=== PATIENT | female | born 1945 | race Caucasian/White ===

== ENCOUNTER 2017-07-04 13:52 | Inpatient (IN) | payer OTHER ==
[2017-07-04] MEDS ORDERED: Ondansetron INJ* 2 MG/ML VIAL IV ONE (14:15)
[2017-07-04] MEDS ORDERED: Morphine INJ* 4 MG/ML 1 ML CARPUJECT IV ONE (14:15)
[2017-07-04] MEDS ORDERED: Aspirin Low Dose CHEW TAB* 81 MG PO ONE (14:15)
[2017-07-04] MEDS ORDERED: Morphine INJ* 4 MG/ML 1 ML SYRINGE (NEW SYRINGE VERSION) ONE (14:18)
[2017-07-04] MEDS ORDERED: Morphine INJ* 4 MG/ML 1 ML SYRINGE (NEW SYRINGE VERSION) IV ONE (14:27)
[2017-07-04 14:40] LABS: ABS Basophils 0 10^3/ul (0-0.2); ABS Eosinophils 0.2 10^3/ul (0-0.6); ABS Lymphocytes 1.9 10^3/ul (1.0-4.8); ABS Monocytes 0.8 10^3/ul (0-0.8); ABS Neutrophils 3.6 10^3/ul (1.5-7.7); ABS Nucleated RBC 0 10^3/ul; Hematocrit 42 % (35-47); Hemoglobin 14.6 g/dl (12.0-16.0); Lymphocyte % 29.4 % (25-47); Mean Corpuscular HGB Conc 35 g/dl (31-36); Mean Corpuscular Hemoglobin 31 pg (27-31); Mean Corpuscular Volume 89 fL (80-97); Mean Platelet Volume 8 um3 (7.4-10.4); Nucleated Red Blood Cells % 0.2; Platelet Count 103 10^3/ul (150-450); Red Blood Count 4.75 10^6/ul (4.0-5.4); Red Cell Distribution Width 13 % (10.5-15); White Blood Count 6.5 10^3/ul (3.5-10.8)
[2017-07-04 14:50] LABS: INR 0.78 (0.77-1.02)
--- NOTE | 2017-07-04 14:53 | RAD ---
Indication: Chest pain. Aortic valve replacement in 2014. Atrial fibrillation. Remote sarcoidosis. Former tobacco use. Comparison: September 03, 2013 Technique: Upright AP 1427 hours Report: Elevated lung volumes. Minimal prominence of the interstitial markings. No focal pulmonary lesion, compelling alveolar consolidation, pleural effusion, pneumothorax. Median sternotomy wires. Negative for cardiomegaly. Unremarkable central pulmonary vasculature. Mildly tortuous descending thoracic aorta. Anterior cervical fusion hardware and surgical anchors at the RIGHT humeral head noted. IMPRESSION: Stigmata of potential obstructive lung disease. No acute pulmonary or cardiac process evident.
[2017-07-04 14:57] LABS: EGFR Non-African American 60.8 (>60)
[2017-07-04] MEDS ORDERED: Ondansetron INJ* 2 MG/ML VIAL IV PRN (17:16)
--- NOTE | 2017-07-04 17:35 | ED ---
Jaquelin Osorio Thomas, scribed for Brian Max MD on 07/04/17 at 1410 . HPI Chest Pain - HPI Summary HPI Summary: The patient is a 71 year old female complaining of chest pain that began this morning about 11:00 when she was doing laundry and dishes. The pain is located in her central chest and radiates to her right shoulder and neck. She describes a dull pain rated 5/10. There are not any known aggravating or alleviating factors. The patient also complains of shortness of breath, a headache, and generalized malaise. She has lymphedema in both legs. The patient denies abdominal pain, nausea, and diaphoresis. Past medical history includes DM and aortic valve replacement (2013). - History of Current Complaint Chief Complaint: EDChestPainROMI Time Seen by Provider: 07/04/17 14:00 Hx Obtained From: Patient Onset/Duration: Started Hours Ago, Still Present Time of Onset: 11:00 Current Severity: Moderate Pain Intensity: 5 Pain Scale Used: 0-10 Numeric Chest Pain Radiates: Yes Chest Pain Radiates To:: Shoulder - right Aggravating Factor(s): Nothing Alleviating Factor(s): Nothing Associated Signs and Symptoms: Positive: Chest Pain, Other: - SOB, headache, generalized malaise; NEGATIVE: abdominal pain, nausea, diaphoresis Related History: Obesity - Allergy/Home Medications Allergies/Adverse Reactions: Allergies Allergy/AdvReac Type Severity Reaction Status Date / Time Adhesive Tape Allergy Rash Verified 07/04/17 13:56 azithromycin Allergy Hives Verified 07/04/17 14:50 ciprofloxacin Allergy Hives Verified 07/04/17 14:50 lisinopril Allergy Coughing Verified 07/04/17 14:50 meloxicam Allergy See Comment Verified 07/04/17 14:51 pollen extracts Allergy Eyes Verified 07/04/17 14:51 Itchy/Swollen/Red/Watery dust mites Allergy Eyes Uncoded 07/04/17 14:50 Itchy/Swollen/Red/Watery PATEL Allergy WEEPY Uncoded 07/04/17 13:56 BLISTERING RASH WATER CHESTNUT Allergy FULL BODY Uncoded 07/04/17 13:56 HIVES Home Medications: Home Medications Ascorbic Acid TAB* [Vitamin C TAB*] 1,000 mg PO BID 07/04/17 [History Confirmed 07/04/17] Cholecalciferol TAB* [Vitamin D TAB*] 1,000 unit PO QPM 07/04/17 [History Confirmed 07/04/17] Dronedarone TAB* [Multaq TAB*] 400 mg PO BID 07/04/17 [History Confirmed ] Metoprolol Succinate XL TAB* [Toprol XL TAB*] 50 mg PO QPM 07/04/17 [History Confirmed 07/04/17] Montelukast Sodium TAB* [Singulair TAB*] 10 mg PO BEDTIME 07/04/17 [History Confirmed 07/04/17] Multivitamins/Minerals TAB* [Theragran/minerals TAB*] 1 tab PO QAM 07/04/17 [ History Confirmed 07/04/17] Rosuvastatin (NF) [Crestor (NF)] 10 mg PO QPM 07/04/17 [History Confirmed ] Ubiquinol 100 mg PO QAM 07/04/17 [History Confirmed 07/04/17] metFORMIN* [Glucophage 500 MG TAB *] 500 mg PO QPM 07/04/17 [History Confirmed 07/04/17] PMH/Surg Hx/FS Hx/Imm Hx Endocrine/Hematology History: Reports: Hx Diabetes Cardiovascular History: Reports: Hx Valvular Heart Disease - HX OF, Other Cardiovascular Problems/Disorders - pericarditis Denies: Hx Pacemaker/ICD Respiratory History: Reports: Hx Asthma - HX OF, Hx Sleep Apnea GI History: Reports: Hx Gastroesophageal Reflux Disease - ON MED History: Reports: Other Problems/Disorders - UTI ABOUT 1 MONTH - NONE NOW Musculoskeletal History: Reports: Hx Arthritis, Hx Bursitis - LEFT HIP, Hx Tendonitis - LEFT ANKLE Sensory History: Reports: Hx Contacts or Glasses Denies: Hx Hearing Aid Opthamlomology History: Reports: Hx Contacts or Glasses Psychiatric History: Reports: Hx Depression - CONTROL WITH MED Denies: Hx Panic Disorder - Surgical History Surgery Procedure, Year, and Place: CERVICAL FUSION 2000 [facility]; BILAT ROTATOR CUFF REPAIRS, LT KNEE SCOPE 2004; GALLBLADDER 2006; HYSTERECTOMY 1999; TONSILECTOMY CHILD, LYMPHNODE BIOPSY 1967; CYST PALM OF LEFT HAND; AORTIC VALVE REPLACMENT Hx Anesthesia Reactions: No Infectious Disease History: No Infectious Disease History: Denies: Hx Clostridium Difficile, Hx Hepatitis, Hx Human Immunodeficiency Virus (HIV), Hx of Known/Suspected MRSA, Hx Shingles, Hx Tuberculosis, Hx Known/ Suspected VRE, Hx Known/Suspected VRSA, History Other Infectious Disease, Traveled Outside the [place] in Last 30 Days - Family History Known Family History: Negative: Respiratory Disease - Social History Alcohol Use: Occasionally Substance Use Type: Reports: None Smoking Status (MU): Former Smoker Type: Cigarettes Amount Used/How Often: 2 CIGARETTES PER DAY Length of Time of Smoking/Using Tobacco: 4-5 YEARS Have You Smoked in the Last Year: No Review of Systems Positive: Other - Generalized malaise. Negative: Fever, Skin Diaphoresis Positive: Chest Pain Positive: Shortness Of Breath Negative: Abdominal Pain, Nausea Positive: Edema Positive: Headache All Other Systems Reviewed And Are Negative: Yes Physical Exam - Summary Physical Exam Summary: General: well-appearing, no pain distress Skin: warm, color reflects adequate perfusion, dry Head: normal Eyes: EOMI, TRAE ENT: normal Neck: supple, nontender Respiratory: CTA, breath sounds present Cardiovascular: RRR Abdomen: soft, nontender Bowel: present Musculoskeletal: bilateral pedal edema Neurological: sensory/motor intact, A&O x3 Psychological: affect/mood appropriate Triage Information Reviewed: Yes Vital Signs On Initial Exam: Initial Vitals Temp Pulse Resp BP Pulse Ox 97.1 F 75 16 160/86 96 07/04/17 13:56 07/04/17 13:56 07/04/17 13:56 07/04/17 13:56 07/04/17 13:56 Vital Signs Reviewed: Yes Diagnostics - Vital Signs Vital Signs Temp Pulse Resp BP Pulse Ox 07/04/17 13:56 97.1 F 75 16 160/86 96 - Laboratory Lab Results: Lab Results 07/04/17 07/04/17 07/04/17 Range/Units 14:28 14:28 14:28 WBC 6.5 (3.5-10.8) 10^3/ul RBC 4.75 (4.0-5.4) 10^6/ul Hgb 14.6 (12.0-16.0) g/dl Hct 42 (35-47) % MCV 89 (80-97) fL MCH 31 (27-31) pg MCHC 35 (31-36) g/dl RDW 13 (10.5-15) % Plt Count 103 L (150-450) 10^3/ul MPV 8 (7.4-10.4) um3 Neut % (Auto) 55.3 (38-83) % Lymph % (Auto) 29.4 (25-47) % Luna % (Auto) 11.6 H (0-7) % Eos % (Auto) 3.0 (0-6) % Baso % (Auto) 0.7 (0-2) % Absolute Neuts (auto) 3.6 (1.5-7.7) 10^3/ul Absolute Lymphs (auto) 1.9 (1.0-4.8) 10^3/ul Absolute Monos (auto) 0.8 (0-0.8) 10^3/ul Absolute Eos (auto) 0.2 (0-0.6) 10^3/ul Absolute Basos (auto) 0 (0-0.2) 10^3/ul Absolute Nucleated RBC 0 10^3/ul Nucleated RBC % 0.2 INR (Anticoag Therapy) 0.78 (0.77-1.02) APTT 28.2 (26.0-36.3) seconds D-Dimer, Quantitative < 200 (Less Than 230) ng/mL Sodium (133-145) mmol/L Potassium Chloride (101-111) mmol/L Carbon Dioxide (22-32) mmol/L Anion Gap (2-11) mmol/L BUN (6-24) mg/dL Creatinine (0.51-0.95) mg/dL Est GFR ( Amer) (>60) Est GFR (Non-Af Amer) (>60) BUN/Creatinine Ratio (8-20) Glucose (70-100) mg/dL Lactic Acid (0.5-2.0) mmol/L Calcium (8.6-10.3) mg/dL Magnesium Total Bilirubin (0.2-1.0) mg/dL AST ALT (7-52) U/L Alkaline Phosphatase (34-104) U/L Total Creatine Kinase (10-223) U/L CK-MB (CK-2) (0.6-6.3) ng/mL Troponin I (<0.04) ng/mL C-Reactive Protein (< 5.00) mg/L B-Natriuretic Peptide 40 ( - 100) pg/mL Total Protein (6.4-8.9) g/dL Albumin (3.2-5.2) g/dL Globulin (2-4) g/dL Albumin/Globulin Ratio (1-3) Lipase (11.0-82.0) U/L TSH (0.34-5.60) mcIU/mL 07/04/17 07/04/17 07/04/17 Range/Units 14:28 14:28 16:50 WBC (3.5-10.8) 10^3/ul RBC (4.0-5.4) 10^6/ul Hgb (12.0-16.0) g/dl Hct (35-47) % MCV (80-97) fL MCH (27-31) pg MCHC (31-36) g/dl RDW (10.5-15) % Plt Count (150-450) 10^3/ul MPV (7.4-10.4) um3 Neut % (Auto) (38-83) % Lymph % (Auto) (25-47) % Luna % (Auto) (0-7) % Eos % (Auto) (0-6) % Baso % (Auto) (0-2) % Absolute Neuts (auto) (1.5-7.7) 10^3/ul Absolute Lymphs (auto) (1.0-4.8) 10^3/ul Absolute Monos (auto) (0-0.8) 10^3/ul Absolute Eos (auto) (0-0.6) 10^3/ul Absolute Basos (auto) (0-0.2) 10^3/ul Absolute Nucleated RBC 10^3/ul Nucleated RBC % INR (Anticoag Therapy) (0.77-1.02) APTT (26.0-36.3) seconds D-Dimer, Quantitative (Less Than 230) ng/mL Sodium 136 (133-145) mmol/L Potassium TNP 4.6 Chloride 104 (101-111) mmol/L Carbon Dioxide 26 (22-32) mmol/L Anion Gap 6 (2-11) mmol/L BUN 28 H (6-24) mg/dL Creatinine 0.91 (0.51-0.95) mg/dL Est GFR ( Amer) 78.1 (>60) Est GFR (Non-Af Amer) 60.8 (>60) BUN/Creatinine Ratio 30.8 H (8-20) Glucose 120 H (70-100) mg/dL Lactic Acid 0.8 (0.5-2.0) mmol/L Calcium 9.4 (8.6-10.3) mg/dL Magnesium Cancelled Pending Total Bilirubin 0.40 (0.2-1.0) mg/dL AST TNP 23 ALT 26 (7-52) U/L Alkaline Phosphatase 68 (34-104) U/L Total Creatine Kinase 79 (10-223) U/L CK-MB (CK-2) 3.4 (0.6-6.3) ng/mL Troponin I 0.03 (<0.04) ng/mL C-Reactive Protein 7.41 H (< 5.00) mg/L B-Natriuretic Peptide ( - 100) pg/mL Total Protein 7.0 (6.4-8.9) g/dL Albumin 4.0 (3.2-5.2) g/dL Globulin 3.0 (2-4) g/dL Albumin/Globulin Ratio 1.3 (1-3) Lipase 66 (11.0-82.0) U/L TSH 1.41 (0.34-5.60) mcIU/mL Result Diagrams: 07/04/17 14:28 07/04/17 16:50 Lab Statement: Any lab studies that have been ordered have been reviewed, and results considered in the medical decision making process. - Radiology CXR Xray Interpretation: No Acute Changes - Stigmata of potential obstructive lung disease. No acute pulmonary or cardiac process evident. Dr. Max has reviewed this report. Radiology Interpretation Completed By: Radiologist - EKG 13:56 Cardiac Rate: NL - at 71 BPM EKG Rhythm: Sinus Rhythm ST Segment: Normal Ectopy: None Chest Pain Course/Dx - Course Course Of Treatment: Medications reviewed. Allergies noted. BP noted and patient urged to follow up with primary care. CHEST PAIN IMPROVED IN ED. ADMIT HOSPITALIST. - Diagnoses Provider Diagnoses: Chest pain - Provider Notifications Discussed Care Of Patient With: Brianna Jones Time Discussed With Above Provider: 16:26 Instructed by Provider To: Admit As Inpatient Discharge - Discharge Plan Condition: Stable Disposition: ADMITTED TO [facility] Referrals: Micheal Renteria MD [Primary Care Provider] - The documentation as recorded by the Jaquelin palencia Thomas accurately reflects the service I personally performed and the decisions made by me, Brian Max MD.
[2017-07-04] MEDS ORDERED: Dextrose 50% Syringe 50 ML* 25 GM/50 ML SYRINGE IV PUSH PRN (17:39)
[2017-07-04] MEDS ORDERED: Atorvastatin* 20 MG TAB PO SCH (18:00)
[2017-07-04] MEDS ORDERED: metFORMIN* 500 MG TAB PO SCH (18:00)
[2017-07-04] MEDS ORDERED: Enoxaparin(*) 40 MG/0.4 ML SYR SUBCUT SCH (18:00)
[2017-07-04] MEDS: buPROPion SR TAB.SR* 150 MG PO SCH (19:49)
[2017-07-04] MEDS: Dronedarone TAB* 400 MG PO SCH (19:49)
[2017-07-04] MEDS: Metoprolol Succinate XL TAB* 50 MG PO SCH (19:49)
[2017-07-04] MEDS: Aspirin EC Low Dose* 81 MG TAB.EC PO SCH (19:49)
[2017-07-04] MEDS: Montelukast Sodium TAB* 10 MG PO SCH (19:49)
[2017-07-04] MEDS: Insulin LISPRO* 1 UNITS UNIT SUBCUT SCH (20:42)
--- NOTE | 2017-07-04 21:54 | PN ---
Progress Note - Progress Note Date of Service: 07/04/17 Note: troponin up to 0.7. Patient asymptomatic per nursing. D/C enoxaparin (not yet give). Add heparin GTT per [facility] protocol. Patient has received aspirin & metoprolol. Continue monitoring.
[2017-07-04] MEDS ORDERED: Heparin DRIP 25,000 UNITS(*) 25,000 UNITS/500 ML BAG IVPB SCH (22:00)
[2017-07-04] MEDS ORDERED: Heparin VIAL(*) 5000 UNITS/ML VIAL (FIVE THOUSAND) IV SCH (22:00)
[2017-07-04 23:10] LABS: EGFR Non-African American 59.3 (>60); EGFR Non-African American 60.8 (>60)
[2017-07-04 23:33] LABS: ABS Basophils 0.1 10^3/ul (0-0.2); ABS Eosinophils 0.2 10^3/ul (0-0.6); ABS Lymphocytes 2.1 10^3/ul (1.0-4.8); ABS Monocytes 0.9 10^3/ul (0-0.8); ABS Neutrophils 4.3 10^3/ul (1.5-7.7); ABS Nucleated RBC 0 10^3/ul; Eosinophil % 2.6 % (0-6); Hematocrit 42 % (35-47); Hemoglobin 14.2 g/dl (12.0-16.0); Lymphocyte % 27.7 % (25-47); Mean Corpuscular HGB Conc 34 g/dl (31-36); Mean Corpuscular Hemoglobin 31 pg (27-31); Mean Corpuscular Volume 90 fL (80-97); Mean Platelet Volume 8 um3 (7.4-10.4); Nucleated Red Blood Cells % 0; Platelet Count 84 10^3/ul (150-450); Red Blood Count 4.65 10^6/ul (4.0-5.4); Red Cell Distribution Width 13 % (10.5-15); White Blood Count 7.6 10^3/ul (3.5-10.8)
--- NOTE | 2017-07-05 03:29 | HP ---
CC: Dr. Renteria; Dr. Fish. * HISTORY AND PHYSICAL: DATE OF ADMISSION: 07/04/17 PRIMARY CARE PROVIDER: Dr. Renteria. PRINCIPAL ACCOUNT CLERK: Dr. Fish. CHIEF COMPLAINT: Chest pain. HISTORY OF PRESENT ILLNESS: Ms. Gilbert is a 71-year-old morbidly obese female with a history of paroxysmal atrial fibrillation, hypertension, hyperlipidemia, and past bovine aortic valve replacement, who presents to the emergency room with complaints of chest pain. The patient states that she was doing routine housework when she began to feel very tired. She states she then felt as if she had just run for a prolonged distance. She felt a very significant heaviness and discomfort in her chest. She stopped performing the housework and rested for little while. The discomfort did not go away and therefore she presented to the emergency room. She still describes discomfort feeling. She states her chest feels heavy. She did note some discomfort in her neck and she had associated shortness of breath. She denies any associated sweats or nausea. She has never had anything like this in the past. She does believe that she had a stress test perhaps in 2012 to 2013 when she was being worked up by Dr. Fish, but she is not 100% sure. PAST MEDICAL HISTORY: 1. ITP. 2. Steroid-induced diabetes. 3. Sarcoidosis. 4. Asthma. 5. Hypertension. 6. Hyperlipidemia. 7. GERD. 8. SHILA. 9. Paroxysmal atrial fibrillation. 10. Depression. PAST SURGICAL HISTORY: 1. Bovine aortic valve replacement in 2013. 2. ACDF. 3. Rotator cuff repairs bilaterally. 4. Cholecystectomy. 5. Lymph node removal in 1968 at the time of diagnosis of sarcoidosis. 6. Tonsillectomy. 7. Hysterectomy. 8. Mohs surgery around the lower lip for basal cell carcinoma. MEDICATIONS: 1. Metformin 500 mg p.o. q.h.s. 2. Metoprolol XL 50 mg p.o. q.h.s. 3. Aspirin 81 mg p.o. q.h.s. 4. Crestor 10 mg p.o. q.h.s. 5. Singulair 10 mg p.o. q.h.s. 6. Vitamin D 1000 units p.o. q.h.s. 7. Ascorbic acid 1000 mg p.o. twice daily. 8. Multivitamin 1 tab p.o. daily. 9. Ubiquinol 100 mg p.o. daily. 10. Cetirizine 10 mg p.o. daily 11. Bupropion SR 150 mg p.o. twice daily. 12. Dronedarone 400 mg p.o. twice daily. ALLERGIES: LISINOPRIL, CIPRO, AZITHROMYCIN and MELOXICAM. FAMILY HISTORY: Mom , she believes of possible pneumonia, states she may have also had some cardiac issues at the time of her passing. Dad had history of prostate cancer, lymphoma and stroke. SOCIAL HISTORY: The patient is a former smoker. She quit in 1967. She drinks alcohol on occasion, but now tends to favor nonalcoholic beer. She is a retired administer. She is . Her is her healthcare proxy. REVIEW OF SYSTEMS: A complete 11 system review of systems is obtained. Pertinent positives and negatives are as per HPI and otherwise negative. PHYSICAL EXAMINATION GENERAL: The patient is a well-developed, elderly obese female, sitting up in the stretcher in no acute distress. VITAL SIGNS: Blood pressure 157/58, pulse 65, respirations 12, temp 97.1, O2 sat 97% on room air. HEENT: Pupils are equal and round. Extraocular muscles are intact. Oropharynx is clear. Oral mucosa is moist. There is no submandibular or cervical or supraclavicular adenopathy. Thyroid is not enlarged. No thyroid nodules are noted. PULMONARY: Lungs are clear to auscultation bilaterally. CARDIAC: Normal S1 and S2. Regular rate and rhythm. I do not appreciate any murmurs. There is no lower extremity edema. ABDOMEN: Bowel sounds present. Abdomen is soft, nontender, nondistended. MUSCULOSKELETAL: There is no cyanosis or clubbing of the digits. There is full active range of motion of all 4 extremities. NEURO: Cranial nerves II through XII are grossly intact. Sensation is intact to light touch throughout. Strength is 5/5 and symmetric in both upper and lower extremities bilaterally. SKIN: Warm and dry. There are no rashes. PSYCH: The patient is alert. She is oriented x3. Affect appears appropriate. LABORATORY DATA/DIAGNOSTIC STUDIES: WBC 6.5, hemoglobin 14.6, hematocrit 42, and platelets 103, INR 0.78. D-dimer less than 200. Sodium 136, potassium 4.6 , chloride 104, CO2 26, BUN 28, creatinine 0.91. Glucose 120, lactic acid 0.8, calcium 9.4, magnesium pending. Bilirubin 0.4, AST 23, ALT 26, alk phos 68. CPK is 79, CK-MB 3.4. Troponin 0.03. CRP 7.41, albumin 4. TSH 1.41. EKG reveals normal sinus rhythm without any acute ST-T wave abnormalities. Chest x- ray revealed stigmata of potential obstructive lung disease. No acute pulmonary or cardiac process evident. ASSESSMENT AND PLAN: Ms. Gilbert is a 71-year-old female with history of hypertension, hyperlipidemia, paroxysmal atrial fibrillation, obstructive sleep apnea and morbid obesity, who presents to the emergency room with complaints of chest discomfort. 1. Chest discomfort. The patient will be admitted and ruled out with serial troponins and EKGs. If she rules out, she will undergo exercise nuclear stress test in the morning. If the stress test is positive, a cardiology consultation will be requested. 2. Type 2 diabetes. Hemoglobin A1c will be added to her labs from the emergency room. She states that her metformin has not been keeping her blood sugars down as low as they had been previously. She is on very low dose at this point, but having side effects. Perhaps a different agent will be needed if her A1c is markedly elevated. 3. Hypertension. Her blood pressure is moderately elevated at this point. I will monitor for now; however, if tomorrow her blood pressure remains elevated, we will likely need to add another agent to control her blood pressure. 4. Hyperlipidemia. We will continue statin. 5. Idiopathic thrombocytopenic purpura. The patient's platelet count is low; however, this is not her lowest level. We will monitor for any signs of bleeding. 6. Obstructive sleep apnea. The patient's will bring in her own CPAP machine. 7. Paroxysmal atrial fibrillation. She will continue on Multaq and metoprolol. She is not on anything other than an aspirin for anticoagulation. 8. DVT prophylaxis: According to the Adult Thrombosis Prophylaxis Risk Factor Assessment Guide, the patient has a total risk factor score of 3 making her risk. Lovenox will be utilized as DVT prophylaxis. 9. Code status is full. TIME SPENT: Sixty-five minutes was spent admitting this patient. [id number]/[facility] #: [id number] [facility]ENTER[facility]ay[facility]
[2017-07-05 05:42] LABS: Urine Appearance Clear; Urine Blood Negative (Negative); Urine Color Straw; Urine Ketones Negative (Negative); Urine Protein Negative (Negative); Urine Specific Gravity 1.004 (1.010-1.030); Urine Urobilinogen Negative (Negative)
[2017-07-05] MEDS ORDERED: Acetaminophen TAB* 325 MG PO PRN (07:35)
[2017-07-05] MEDS: Insulin LISPRO* 1 UNITS UNIT SUBCUT SCH ×4 (08:53→23:36)
[2017-07-05] MEDS: Multivitamins/Minerals TAB PO SCH (10:56)
[2017-07-05] MEDS: Dronedarone TAB* 400 MG PO SCH ×2 (10:56→20:40)
[2017-07-05] MEDS: buPROPion SR TAB.SR* 150 MG PO SCH ×2 (10:56→20:41)
[2017-07-05 11:12] LABS: EGFR Non-African American 62.3 (>60)
[2017-07-05] MEDS ORDERED: Nitroglycerin 2% OINT* 1 GM PAK TOPICAL ONE (11:46)
[2017-07-05] MEDS ORDERED: Atorvastatin* 20 MG TAB PO SCH (11:46)
[2017-07-05] MEDS ORDERED: Nitroglycerin 2% OINT* 1 GM PAK ONE (11:48)
[2017-07-05] MEDS ORDERED: Morphine INJ* 4 MG/ML 1 ML CARPUJECT IV PRN (11:49)
--- NOTE | 2017-07-05 11:54 | PN ---
Subjective Date of Service: 07/05/17 Interval History: Pt is feeling ok. She notes that she still has the discomfort in her chest that she came in with. She also describes feeling SOB with just conversation at rest which is quite abnormal for her. She states she has no appetite. No nausea or vomiting. No sweats. Objective Active Medications: Acetaminophen (Tylenol Tab*) 650 mg PO Q4H PRN PRN Reason: PAIN Aspirin (Aspirin Ec Low Dose*) 81 mg PO QPM [facility] Last Admin: 07/04/17 19:49 Dose: 81 mg Atorvastatin Calcium (Lipitor*) 80 mg PO QPM [facility] PRN Reason: Protocol Bupropion HCl (Wellbutrin Sr Tab*) 150 mg PO BID [facility] Last Admin: 07/05/17 10:56 Dose: Not Given Dextrose (D50w Syringe 50 Ml*) 12.5 gm IV PUSH .FOR FS < 60 - SS PRN PRN Reason: FS < 60 Last Admin: 07/05/17 11:30 Dose: 12.5 gm Dronedarone (Multaq Tab*) 400 mg PO BID [facility] Last Admin: 07/05/17 10:56 Dose: Not Given Heparin Sodium (Porcine) (Heparin Vial(*)) 0 units IV .PER PROTOCOL [facility] PRN Reason: Protocol Last Admin: 07/04/17 23:14 Dose: 4,000 units Heparin Sodium/Dextrose (Heparin Drip 25,000 Units(*)) 25,000 units in 500 mls @ 0 mls/hr IVPB PER RATE [facility]; Per Protocol PRN Reason: Protocol Last Admin: 07/04/17 23:14 Dose: 18 mls/hr Insulin Human Lispro (Humalog*) 0 units SUBCUT ACHS [facility] PRN Reason: Protocol Last Admin: 07/05/17 11:33 Dose: Not Given Metoprolol Succinate (Toprol Xl Tab*) 50 mg PO QPM [facility] Last Admin: 07/04/17 19:49 Dose: 50 mg Montelukast Sodium (Singulair Tab*) 10 mg PO BEDTIME [facility] Last Admin: 07/04/17 19:49 Dose: 10 mg Multivitamins/Minerals (Theragran/Minerals Tab*) 1 tab PO QAM [facility] Last Admin: 07/05/17 10:56 Dose: Not Given Nitroglycerin (Nitroglycerin 2% Oint*) 0.5 inch TOPICAL ONCE ONE PRN Reason: Protocol Stop: 07/05/17 11:47 Ondansetron HCl (Zofran Inj*) 4 mg IV Q6H PRN PRN Reason: NAUSEA Vital Signs - 8 hr 07/05/17 07:59 Temperature 98.2 F Pulse Rate 59 Respiratory 14 Rate Blood Pressure 148/67 (mmHg) O2 Sat by Pulse 98 Oximetry Oxygen Devices in Use Now: None Appearance: Morbidly obese female sitting up in bed, NAD Eyes: No Scleral Icterus Ears/Nose/Mouth/Throat: Mucous Membranes Moist Respiratory: Symmetrical Chest Expansion and Respiratory Effort, Clear to Auscultation Cardiovascular: NL Sounds; No Murmurs; No JVD, RRR, No Edema Abdominal: NL Sounds; No Tenderness; No Distention Extremities: No Clubbing, Cyanosis Skin: No Rash or Ulcers, No Nodules or Sclerosis Neurological: Alert and Oriented x 3 Result Diagrams: 07/04/17 22:43 07/05/17 10:01 Additional Lab and Data: Lab Results 07/04/17 07/04/17 07/04/17 Range/Units 14:28 14:28 14:28 WBC 6.5 (3.5-10.8) 10^3/ul RBC 4.75 (4.0-5.4) 10^6/ul Hgb 14.6 (12.0-16.0) g/dl Hct 42 (35-47) % MCV 89 (80-97) fL MCH 31 (27-31) pg MCHC 35 (31-36) g/dl RDW 13 (10.5-15) % Plt Count 103 L (150-450) 10^3/ul MPV 8 (7.4-10.4) um3 Neut % (Auto) 55.3 (38-83) % Lymph % (Auto) 29.4 (25-47) % [place] % (Auto) 11.6 H (0-7) % Eos % (Auto) 3.0 (0-6) % Baso % (Auto) 0.7 (0-2) % Absolute Neuts (auto) 3.6 (1.5-7.7) 10^3/ul Absolute Lymphs (auto) 1.9 (1.0-4.8) 10^3/ul Absolute Monos (auto) 0.8 (0-0.8) 10^3/ul Absolute Eos (auto) 0.2 (0-0.6) 10^3/ul Absolute Basos (auto) 0 (0-0.2) 10^3/ul Absolute Nucleated RBC 0 10^3/ul Nucleated RBC % 0.2 INR (Anticoag Therapy) 0.78 (0.77-1.02) APTT 28.2 (26.0-36.3) seconds D-Dimer, Quantitative < 200 (Less Than 230) ng/mL Sodium (133-145) mmol/L Potassium Chloride (101-111) mmol/L Carbon Dioxide (22-32) mmol/L Anion Gap (2-11) mmol/L BUN (6-24) mg/dL Creatinine (0.51-0.95) mg/dL Est GFR ( Amer) (>60) Est GFR (Non-Af Amer) (>60) BUN/Creatinine Ratio (8-20) Glucose (70-100) mg/dL Lactic Acid (0.5-2.0) mmol/L Calcium (8.6-10.3) mg/dL Magnesium Total Bilirubin (0.2-1.0) mg/dL AST ALT (7-52) U/L Alkaline Phosphatase (34-104) U/L Total Creatine Kinase (10-223) U/L CK-MB (CK-2) (0.6-6.3) ng/mL Troponin I (<0.04) ng/mL C-Reactive Protein (< 5.00) mg/L B-Natriuretic Peptide 40 ( - 100) pg/mL Total Protein (6.4-8.9) g/dL Albumin (3.2-5.2) g/dL Globulin (2-4) g/dL Albumin/Globulin Ratio (1-3) Lipase (11.0-82.0) U/L TSH (0.34-5.60) mcIU/mL 07/04/17 07/04/17 07/04/17 Range/Units 14:28 14:28 16:50 WBC (3.5-10.8) 10^3/ul RBC (4.0-5.4) 10^6/ul Hgb (12.0-16.0) g/dl Hct (35-47) % MCV (80-97) fL MCH (27-31) pg MCHC (31-36) g/dl RDW (10.5-15) % Plt Count (150-450) 10^3/ul MPV (7.4-10.4) um3 Neut % (Auto) (38-83) % Lymph % (Auto) (25-47) % [place] % (Auto) (0-7) % Eos % (Auto) (0-6) % Baso % (Auto) (0-2) % Absolute Neuts (auto) (1.5-7.7) 10^3/ul Absolute Lymphs (auto) (1.0-4.8) 10^3/ul Absolute Monos (auto) (0-0.8) 10^3/ul Absolute Eos (auto) (0-0.6) 10^3/ul Absolute Basos (auto) (0-0.2) 10^3/ul Absolute Nucleated RBC 10^3/ul Nucleated RBC % INR (Anticoag Therapy) (0.77-1.02) APTT (26.0-36.3) seconds D-Dimer, Quantitative (Less Than 230) ng/mL Sodium 136 (133-145) mmol/L Potassium TNP 4.6 Chloride 104 (101-111) mmol/L Carbon Dioxide 26 (22-32) mmol/L Anion Gap 6 (2-11) mmol/L BUN 28 H (6-24) mg/dL Creatinine 0.91 (0.51-0.95) mg/dL Est GFR ( Amer) 78.1 (>60) Est GFR (Non-Af Amer) 60.8 (>60) BUN/Creatinine Ratio 30.8 H (8-20) Glucose 120 H (70-100) mg/dL Lactic Acid 0.8 (0.5-2.0) mmol/L Calcium 9.4 (8.6-10.3) mg/dL Magnesium Cancelled Pending Total Bilirubin 0.40 (0.2-1.0) mg/dL AST TNP 23 ALT 26 (7-52) U/L Alkaline Phosphatase 68 (34-104) U/L Total Creatine Kinase 79 (10-223) U/L CK-MB (CK-2) 3.4 (0.6-6.3) ng/mL Troponin I 0.03 (<0.04) ng/mL C-Reactive Protein 7.41 H (< 5.00) mg/L B-Natriuretic Peptide ( - 100) pg/mL Total Protein 7.0 (6.4-8.9) g/dL Albumin 4.0 (3.2-5.2) g/dL Globulin 3.0 (2-4) g/dL Albumin/Globulin Ratio 1.3 (1-3) Lipase 66 (11.0-82.0) U/L TSH 1.41 (0.34-5.60) mcIU/mL Assess/Plan/Problems-Billing Ms Gilbert is a 71 yo morbidly obese female with a h/o PAF, HTN, type II DM, SHILA and ITP who presented to the ER with c/o chest discomfort and was admitted for evaluation. - Patient Problems (1) Chest pain Current Visit: Yes Status: Acute Code(s): R07.9 - CHEST PAIN, UNSPECIFIED SNOMED Code(s): 84797058 Comment: The patient has ruled in for NSTEMI. Her troponin continues to climb and is currently at 2.1. She was started on a heparin drip overnight. She will continue on ASA 81mg daily, lipitor (increase to 80mg), metoprolol XL. Given the ongoing chest discomfort will start NTG paste 1/2in topically now. Cardiology consult imminent. Likely catheterization today. (2) Chronic ITP (idiopathic thrombocytopenia) Current Visit: Yes Status: Acute Code(s): D69.3 - IMMUNE THROMBOCYTOPENIC PURPURA SNOMED Code(s): 135921979 Comment: The patient has ITP that has been very steroid responsive. Currently she is not on steroids. There is a concern about her ITP and needing to go to cath and potentially end up on dual antiplatelet therapy. I asked for Dr Sow to consult. He states the patient has never had a plt count less than 48 and given her responsiveness to steroids we can proceed with what ever treatment the patient needs including stent and dual antiplatelet therapy. (3) HTN (hypertension) Current Visit: Yes Status: Acute Code(s): I10 - ESSENTIAL (PRIMARY) HYPERTENSION SNOMED Code(s): 84616808 Comment: BP is moderately elevated. Will continue metoprolol XL. No ACEI secondary to adverse rxn. Will start losartan 25mg daily. (4) HLD (hyperlipidemia) Current Visit: Yes Status: Acute Code(s): E78.5 - HYPERLIPIDEMIA, UNSPECIFIED SNOMED Code(s): 02353329 Comment: Continue lipitor but increase to 80mg daily. (5) Type II diabetes mellitus Current Visit: Yes Status: Acute Comment: Sugars have fluctuated here but her A1c is elevated at 8.1%. SHe states she has abdominal upset and diarrhea from the metformin. Will discuss starting an additional agent vs trying to increase the metformin dose to achieve better blood sugar control. (6) SHILA (obstructive sleep apnea) Current Visit: Yes Status: Acute Code(s): G47.33 - OBSTRUCTIVE SLEEP APNEA ( ADULT) (PEDIATRIC) SNOMED Code(s): 77289524 Comment: Continue CPAP. (7) DVT prophylaxis Current Visit: Yes Status: Acute Code(s): OJC0180 - SNOMED Code(s): 466713403 Comment: heparin drip (8) Full code status Current Visit: Yes Status: Acute Code(s): Z78.9 - OTHER SPECIFIED HEALTH STATUS SNOMED Code(s): 905035374
[2017-07-05] MEDS ORDERED: Heparin 2 UNITS/ML IVPREMIX* 2,000 ML IV ONE (12:47)
[2017-07-05] MEDS ORDERED: Lidocaine 1% INJ* 10 MG/ML 30 ML SDV ONE (12:47)
[2017-07-05] MEDS ORDERED: Iohexol 350 (CONTRAST) 200 ML MDV IV ONE (12:54)
[2017-07-05] MEDS ORDERED: fentaNYL* 50 MCG/ML 2 ML VIAL (100 MCG VIAL) ONE (13:21)
[2017-07-05] MEDS ORDERED: Midazolam* 1 MG/ML 10 ML VIAL (10 MG) ONE (13:21)
[2017-07-05] MEDS ORDERED: NS 0.9% 1000 ML* 1,000 ML IV SCH (14:30)
[2017-07-05] MEDS: Losartan TAB* 25 MG PO SCH (16:04)
[2017-07-05] MEDS: Aspirin EC Low Dose* 81 MG TAB.EC PO SCH (17:32)
[2017-07-05] MEDS: Metoprolol Succinate XL TAB* 50 MG PO SCH (17:32)
[2017-07-05] MEDS: Montelukast Sodium TAB* 10 MG PO SCH (20:41)
[2017-07-05 22:09] LABS: ABS Basophils 0 10^3/ul (0-0.2); ABS Eosinophils 0.1 10^3/ul (0-0.6); ABS Lymphocytes 1.8 10^3/ul (1.0-4.8); ABS Neutrophils 5.1 10^3/ul (1.5-7.7); ABS Nucleated RBC 0 10^3/ul; EGFR Non-African American 60.8 (>60); Eosinophil % 0.7 % (0-6); Hematocrit 40 % (35-47); Hemoglobin 13.7 g/dl (12.0-16.0); Lymphocyte % 22.6 % (25-47); Mean Corpuscular HGB Conc 35 g/dl (31-36); Mean Corpuscular Hemoglobin 31 pg (27-31); Mean Corpuscular Volume 89 fL (80-97); Mean Platelet Volume 8 um3 (7.4-10.4); Nucleated Red Blood Cells % 0; Platelet Count 84 10^3/ul (150-450); Red Blood Count 4.45 10^6/ul (4.0-5.4); Red Cell Distribution Width 13 % (10.5-15)
--- NOTE | 2017-07-05 23:24 | CONS ---
CC: Dr. Nguyễn Sow; Dr. Micheal Renteria; Dr. Jay Fish* CARDIOLOGY CONSULT: DATE OF CONSULT: 07/05/2017 DATE OF DICTATION: 07/05/2017. REASON FOR CONSULT: Asked by Dr. Jones (hospitalist) to see the patient for increasing troponin levels with persistent mild chest discomfort. HISTORY OF PRESENT ILLNESS: The patient is a 71-year-old female known to our group through Dr. Jay Fish, who has watched her for her cardiac problems. She now presents stating that she was doing routine house work yesterday and started feeling very tired. She felt as if she had been overexerting herself for a long time. She developed mild chest discomfort sensation with some radiation up the throat and possibly to the jaw. She felt a sensation of mild shortness of breath with this, but denied any significant diaphoresis. She had no nauseousness as well. She states that she never had any feeling like that in the past. Because of its persistence yesterday, she went to the emergency room. In the emergency room, EKG was done and felt not to show significant abnormalities. Her initial laboratory results had revealed a total CPK of 79 and MB of 3.4 and a troponin of 0.03. She had a C-reactive protein of 7.41. Her B-natriuretic peptide was 40. She was admitted to the hospital and overnight her cardiac enzymes increased to 0.28 and then to 0.75 and eventually to 2.10. Of note, her total CPK increased from 123 to 171 on the last sample and the MB had increased from an initial MB value of 3.4 to 16 and eventually to 21.5. She was still complaining about mild constant chest discomfort that had been present since yesterday without much change. She thought when she was given a nitro, may have felt slightly better. PAST MEDICAL HISTORY: Includes idiopathic thrombocytopenia purpura. She has steroid-induced diabetes, sarcoidosis, asthma, hypertension, hyperlipidemia, gastroesophageal reflux, obstructive sleep apnea, and paroxysmal atrial fibrillation and depression. She had a history of aortic stenosis with valve replacement in 2013. PAST SURGICAL HISTORY: Includes a bovine aortic valve replacement by Dr. Jose Irizarry in 2013. She has had an ACDF, rotator cuff repair bilaterally, cholecystectomy, lymph node removal in 1968 with a diagnosis of sarcoid, tonsillectomy, hysterectomy, and a Mohs surgery around the lower lip for basal cell carcinoma. MEDICATIONS: In the hospital when I see her now, her current medications include: 1. Aspirin 81 mg a day. 2. Lipitor 80 mg a day. 3. Bupropion 150 mg twice a day. 4. Dronedarone 400 mg twice a day. 5. Insulin Humalog. 6. Cozaar 25 mg once a day. 7. Metoprolol succinate 50 mg a day. 8. Singulair 10 mg at bedtime. 9. MultiVites 1 a day. ALLERGIES: She has a history of reportedly an allergy to LISINOPRIL, CIPRO, AZITHROMYCIN, and MELOXICAM. FAMILY HISTORY: Not definitive for the presence of early coronary artery disease. SOCIAL HISTORY: She used to smoke, but quit in the 60s. Occasionally drinks alcohol and she is a retired lan administrator. She is . REVIEW OF SYSTEMS: Pertinent to proceeding to the cardiovascular laboratory includes a negative history of hematochezia, hematemesis, or hematuria. No prior stroke or TIA. No history of significant renal dysfunction. She does have a history of ITP. PHYSICAL EXAM: When I see her reveals vital signs: Blood pressure is 143/60 with a pulse of 60, respirations 15, O2 saturation 98% on room air. Neck: Supple. No obvious increased JVP. Carotid has fair upstroke and volume. I do not hear a bruit or definitive transmitted murmur. Conjunctivae are pink. Sclerae clear. Lungs: Reveals no accessory muscle usage. There is good excursion. There are no active rales, rhonchi, or wheezes appreciated. Heart: Somewhat distant in nature due to large chest size. Normal S1, S2 with a soft systolic murmur at the right upper sternal border. Abdomen: Significantly obese. I cannot accurately access for organomegaly. There is no tenderness. Extremities: Heavy in nature bilaterally. The femoral pulse is present bilaterally without bruit. Distal pulses are intact. Neuro: The patient is alert, oriented with normal mentation. Musculoskeletal: The patient moves all extremities appropriately. Psychological: The patient with normal affect. DIAGNOSTIC STUDIES/LAB DATA: EKG from the emergency room dated 07/04/17, timed 4998, revealed sinus rhythm, heart rate 71. There is minimal nonspecific ST-T wave change in aVL and minimal flattening of the ST segment before the T wave in V3 and lead I. Repeat EKG from 07/05/17, timed 08:42, reveals nonspecific ST -T wave change in aVL. Repeat EKG from 11:59 a.m. on 07/05/17 shows perhaps minimal T-wave inversion in aVL. Other laboratory results other than mentioned above include a white count of 6, 500 on admission with a hemoglobin and hematocrit of 14.6 and 42, platelet count initially of 103,000, on repeat some 8 hours later, the platelet count was 84,000. The initial sodium 136, potassium 4.6, chloride 104, bicarb 26, BUN and creatinine are 28 and 0.9 on 07/04/17. Repeat today revealed BUN and creatinine of 21 and 0.8. Chest x-ray report revealed stigmata of possible obstructive lung disease. No acute pulmonary or cardiac process evident. OVERALL ASSESSMENT: Heather presents now with rising cardiac enzymes, albeit in an somewhat slow pattern with EKG that is not definitive and has minimal abnormalities on it. Because of her persisted symptoms at this point in time, I favor cardiac catheterization to rule out the presence of significant obstructive coronary artery disease in light of her acute coronary artery presentation. She has already been placed on statin therapy and beta-sampson therapy and she is on chronic aspirin and is now on heparin therapy. We will maintain those currently. A consultation has been made with Dr. Nguyễn Sow with regard to her idiopathic thrombocytopenic purpura for which his group follows her and he has made a statement that we should treat her as a patient who does not have significant disease with respect to the choice of type of stent and the length of dual antiplatelet therapy. He felt that a drug-eluting stent with minimum of 1 year dual antiplatelet therapy was acceptable for this patient. At this point in time, further management will be pending the results of the cardiac catheterization. [id number]/[facility] #: [id number] [facility]
--- NOTE | 2017-07-05 23:49 | CONS ---
CC: Dr. Paul Emery, Dr. Karissa Abrams, Dr. Micheal Renteria, Dr. Jay Fish* MEDICAL ONCOLOGY/HEMATOLOGY CONSULTATION NOTE: DATE OF CONSULTATION: 07/05/17 REASON FOR CONSULTATION: ITP. HISTORY OF PRESENT ILLNESS: Heather Gilbert is a 71-year-old female who has been followed in our office by Dr. Karissa Abrams since December 2011. At that time, she had presented with a platelet count of 102,000 with platelet counts known to have been abnormal going back to 2010. She has had multiple platelet counts checked since that period of time with all values available to me have been at a level of 48 or higher and most recently it was 103,000 on admission and 84, 000 last evening. She had initial workup for the thrombocytopenia in 2011. At that time, a bone marrow aspiration and biopsy were performed. They were unremarkable with mixed trilinear hematopoiesis and normal cellularity. There was a single lymphoid aggregate, which was nonspecific. HIV and hepatitis panels were normal. She had an aortic valve surgery complicated postoperatively by AFib. She required anticoagulation. She was placed at that time on a protracted course of steroids with prednisone, the patient reports of 100 mg daily for several months and then a slow taper. Her only other episode of being on steroids was in preparation for a carpal tunnel surgery when she needed to have her platelet counts increased. She received at that point a total of about a 3-week course of prednisone. Platelet count prior was adequate. She reports actually taking the prednisone for a shorter period of time than it was actually recommended to her. The patient reports that she has really never had any significant bleeding or bruising episodes other than significant "hemorrhage" after the induced childbirth in 1973. Other pregnancies were fine. Has never had any major bleeding or bruising with any surgeries. She has occasional epistaxis, which stops easily. No gum bleeds, blood in the urine or stool, or anything other than just some mild bruising. At this time, she had presented with an episode of chest pressure and pain in the morning of admission along with some shortness of breath, decreased appetite , radiation of the discomfort to her neck and jaw and today to her back without any radiation to the arms and without any nausea or diaphoresis. Her troponins were elevated at 0.75 last evening. Decision is for her to go to the cardiac quality assurance qa lab technician with potential of needing cardiac stents. She currently is relatively pain free at the time of our visit at about 11 a.m. on 07/05/17. PAST MEDICAL HISTORY: Otherwise significant for sarcoidosis. She was found to have abnormalities on a chest x-ray, followed by surgery with a total of 42 lymph nodes being removed in 1968. Is unaware of any subsequent problems from her sarcoidosis since that period. Most recent chest x-ray on the day of admission, 07/04/17, shows evidence for COPD, but no evidence for any adenopathy , lung nodules, or anything else to go with sarcoid. Past medical history is otherwise significant for osteoarthritis, paroxysmal atrial fibrillation, aortic stenosis, status post aortic valve replacement as discussed above, hypertension, hyperlipidemia, GERD, obstructive sleep apnea, depression, status post rotator cuff repair, status post cholecystectomy, status post tonsillectomy , status post hysterectomy, status post Mohs surgery on the lip for basal cell carcinoma. MEDICATIONS AT THE TIME OF ADMISSION: Included: 1. Metformin 500 mg daily. 2. Metoprolol XL 50 mg daily. 3. Aspirin 81 mg daily. 4. Crestor 10 mg daily. 5. Singulair 10 mg daily. 6. Bupropion SR 150 b.i.d. 7. Dronedarone 400 mg twice daily. 8. Cetirizine 10 mg daily. 9. Ubiquinol 100 mg daily. 10. Multivitamin daily. 11. Ascorbic acid 1000 mg b.i.d. 12. Vitamin D 1000 units daily. ALLERGIES: MELOXICAM, AZITHROMYCIN, CIPRO, and LISINOPRIL. FAMILY HISTORY: Father with prostate cancer and lymphoma. No other history of malignancies or any bleeding or clotting issues. SOCIAL HISTORY: Former smoker, quit in 1967 at the time of her sarcoid diagnosis. Alcohol occasionally. Retired hospital administrator. She is . REVIEW OF SYSTEMS: Weight has been stable. Energy level is good. No significant shortness of breath, chest pain, or palpitations other than in the last 24 hours. No significant change in bowel or bladder habits. Review of systems is otherwise negative except as discussed above. PHYSICAL EXAM: A 71-year-old female, in no acute distress. Vital Signs: Blood pressure 160/74, pulse 65, afebrile. HEENT: PERRL. EOMI. No erythema or exudates. No palpable cervical, supraclavicular, or axillary adenopathy. Lungs: Clear. Heart: Regular rate and rhythm without murmurs, rubs, or gallops. Abdomen: Soft, nontender without masses or organomegaly. Extremities : No clubbing, cyanosis, or edema. Back: No CVA or spinal tenderness. IMPRESSION: A 71-year-old female with a history of idiopathic thrombocytopenic purpura, currently with platelet count of 84,000. She has never had platelet counts of under 48,000. She is currently going to the quality assurance qa lab technician later today. Consideration is that she may need cardiac stents and if so the bare-metal stents would be appropriate. Given that she has never had any major bleeding or bruising problems, has only had steroids at times preoperatively to boost her platelet count, and has never had major bleeding or bruising, I believe it would be perfectly safe and reasonable for any needed medications including heparin, single or dual platelet agents. As long as her platelet count remains above 50,000, she can remain on all of these safely. If her platelet count were to drop below 50,000, there is a very strong likelihood that she would respond to either IV IgG, steroids, or rituximab. Therefore, there should be no limitation to her ability to be treated in a conventional manner for her cardiac issues. [id number]/[facility] #: [id number] [facility]
[2017-07-06 06:16] LABS: ABS Basophils 0 10^3/ul (0-0.2); ABS Eosinophils 0.2 10^3/ul (0-0.6); ABS Monocytes 0.9 10^3/ul (0-0.8); ABS Neutrophils 4.7 10^3/ul (1.5-7.7); ABS Nucleated RBC 0 10^3/ul; Hematocrit 41 % (35-47); Lymphocyte % 25.7 % (25-47); Mean Corpuscular HGB Conc 34 g/dl (31-36); Mean Corpuscular Hemoglobin 31 pg (27-31); Mean Corpuscular Volume 89 fL (80-97); Mean Platelet Volume 9 um3 (7.4-10.4); Nucleated Red Blood Cells % 0; Platelet Count 93 10^3/ul (150-450); Red Blood Count 4.57 10^6/ul (4.0-5.4); Red Cell Distribution Width 13 % (10.5-15); White Blood Count 7.8 10^3/ul (3.5-10.8)
[2017-07-06 06:26] LABS: EGFR Non-African American 57.1 (>60)
[2017-07-06] MEDS: Losartan TAB* 25 MG PO SCH (08:42)
[2017-07-06] MEDS: Insulin LISPRO* 1 UNITS UNIT SUBCUT SCH ×2 (08:42→11:57)
[2017-07-06] MEDS: buPROPion SR TAB.SR* 150 MG PO SCH (08:42)
[2017-07-06] MEDS: Multivitamins/Minerals TAB PO SCH (08:42)
[2017-07-06] MEDS: Dronedarone TAB* 400 MG PO SCH (08:42)
--- NOTE | 2017-07-06 13:00 | CATH ---
CC: Jay Fish MD; Micheal Renteria MD, [facility]; Dr. Nguyễn Sow* CARDIAC CATHETERIZATION REPORT: DATE OF PROCEDURE: 07/05/17 REASON FOR CARDIAC CATHETERIZATION: Asked by Dr. Fish and Dr. Brianna Jones to see the patient for rising cardiac enzymes with mild persistent chest discomfort, EKG with subtle but not definitive changes of acute ischemia or infarct. Assess for the presence of underlying coronary artery disease. PROCEDURE: Coronary arteriography, left heart catheterization, left ventriculography. PROCEDURE IN DETAIL: The patient was interviewed and examined on the floor of the hospital where the risks and benefits were explained. She understood them and wished to proceed. Approach: Right femoral artery. Anterior wall only stick. Sheath utilized: Merit Prelude 6.5-Chilean sheath. Diagnostic coronary artery catheters: FR4 curve 5-Chilean right coronary catheter and both FL4 and FL5 curve 5-Chilean left coronary catheter. Left heart catheterization catheter: Angled 145 5-Chilean pigtail catheter with utilization of a straight wire to cross the prosthetic aortic valve (of note, careful gentle probing of the prosthetic valve was performed with smooth passage of the wire across the aortic valve without resistance in placement of the pigtail catheter across the aortic valve). Closure device technique: A 6/7-Chilean Mynx closure device deployed with good hemostasis. Contrast amount utilized: 75 mL of Omnipaque dye. Radiation exposure: 15.8 minutes of fluoro time, the air kerma radiation was 1329 milligray, the DAP radiation was 8041 microgray per sq. m. RESULTS: HEMODYNAMIC DATA: Left heart catheterization revealed left ventricular pressure 169 over left ventricular end diastolic pressure of 25. Central aortic pressure recorded at 164/73 with a mean of 110. LEFT VENTRICULOGRAPHY: Performed in the COLLINS projection revealed symmetrical contraction of left ventricle with no focal wall motion abnormalities. The overall ejection fraction estimated at 60% to 65%. CORONARY ARTERIOGRAPHY: A. Left coronary artery: 1. Left main - very short nature with no significant obstruction. 2. Left anterior descending artery: There was no significant obstruction seen throughout the course of the left anterior descending artery or its diagonal branches. A small first posteriorly directed diagonal branch was noted followed by moderate size mid diagonal branch. The left anterior descending artery traversed to the apical region and on to the distal inferior wall. It tapered in a natural way in its mid to distal portion. 3. Circumflex artery - a nondominant vessel supplying several thin first and second obtuse marginal branches with a moderate sized mid obtuse marginal branch which trifurcated in its most distal portion. There was no significant disease seen throughout the course of the vessel. B. Right coronary artery - a dominant vessel supplying the PDA and 2 posterior left ventricular branches. There was no significant disease seen throughout the course of the vessel. Of note, the caliber of the PDA and clearly the posterior left ventricular branches were small in caliber with cork screw appearance noted suggesting the presence of left ventricular hypertrophy. OVERALL ASSESSMENT: No evidence of significant stenotic coronary artery disease with normal left ventricular systolic function. Again, given these findings, there does not appear to be an apparent cause for the cardiac enzyme abnormality. Obviously, I cannot definitively rule out perhaps some small branch occlusion, but I do not see any evidence of any major artery occlusion and no obvious wall motion abnormality is seen. [id number] #: [id number] ANNITA
[2017-07-06 13:40] VITALS: BP 133/70
--- NOTE | 2017-07-07 15:42 | DS ---
CC: Dr. Renteria; Dr. Fish* DISCHARGE SUMMARY: DATE OF ADMISSION: 07/04/17 DATE OF DISCHARGE: 07/06/17 PRINCIPAL DISCHARGE DIAGNOSIS: Myopericarditis. SECONDARY DISCHARGE DIAGNOSES: 1. Idiopathic thrombocytopenic purpura. 2. Bioprosthetic aortic valve. 3. Type 2 diabetes. 4. Sarcoidosis. 5. Paroxysmal atrial fibrillation. 6. Asthma. 7. Hypertension. 8. Obstructive sleep apnea. 9. Depression. PHYSICAL EXAMINATION AT THE TIME OF DISCHARGE: Vital Signs: Temperature 98.7, heart rate 66, respiratory rate 16, pulse ox 98% on room air, blood pressure 133 /70. General: Alert, well-appearing female, sitting up in her chair, reading a book, seen walking in the hallways earlier today. HEENT: Pupils equal, round , and reactive to light. No nystagmus. Moist mucosa. Neck: No JVP. No cervical lymphadenopathy. Chest: Regular rate and rhythm. PMI nondisplaced. Systolic murmur heard at the right upper sternal border without radiation. No rub or S3, S4. Abdomen: Soft, nontender, and nondistended. Extremities: 1 to 2+ lower extremity edema bilaterally without erythema or ulcers. Neurologic : Alert and oriented x3. Strength 5+ throughout. DISCHARGE MEDICATIONS: 1. Aspirin 81 mg daily. 2. Wellbutrin 150 mg b.i.d. 3. Cetirizine 10 mg daily. 4. Metformin 500 mg daily. 5. Metoprolol succinate 50 mg daily. 6. Rosuvastatin 10 mg daily. 7. Montelukast 10 mg daily. 8. Cholecalciferol 1000 units daily. 9. Ascorbic acid 1000 mg b.i.d. 10. Multivitamin daily. 11. Ubiquinol 100 mg daily. 12. Dronedarone 400 mg b.i.d. 13. Ibuprofen 600 mg t.i.d. for 7 days. HOSPITAL COURSE BY PROBLEM: 1. Myopericarditis. Ms. Gilbert presented with chest pain and was found to have a positive troponin that peaked at 2.1. Her EKG showed no ischemic changes. However, given her troponin elevation and chest pain, she was taken to the [facility] on 07/05/17 for a left heart catheterization. At that time, there was no evidence of significant stenotic coronary artery disease and she had a normal LV systolic function. Acute coronary syndrome was ruled out at this time. While her symptoms were not completely consistent with a myopericarditis , she did have a recent viral syndrome and given her negative cardiac catheterization, a diagnosis of myopericarditis was presumed and she is being treated with ibuprofen for the next 7 days. She will follow up with Dr. Fish within the next week as well as Dr. Emery and was instructed to return to the emergency department with any further chest pain, shortness of breath, palpitations, orthopnea, fevers, chills, or other symptoms. At the time of discharge, she is chest pain free. 2. History of ITP. Her platelets during this admission ranged from 84,000 to 103,000. Prior to going to the [facility], she was seen by Dr. Sow regarding the possibility for needing dual antiplatelet therapy. This need did not ultimately arise; however, he did recommend that dual antiplatelet therapy would be possible in her if needed in the future. 3. Paroxysmal atrial fibrillation. She was continued on metoprolol and was rate controlled. She takes only aspirin. 4. Obstructive sleep apnea. She does use CPAP at home. However, she does not know her settings. 5. Type 2 diabetes, likely thought to be steroid induced. She was treated with insulin sliding scale while admitted, but is being discharged on her home metformin dose. DISPOSITION: Ms. Gilbert was discharged to home on 07/06/17, with followup with Dr. Emery and Dr. Fish. She is instructed to return to the emergency department with any of the symptoms listed above. [id number]/[facility] #: [id number] MTDD
== END 2017-07-06 13:41 | disposition home or self-care (01) | DRG 287 ==
LOC: ED 13:52 → MEDTELE 17:16 → OBSVTOIN 07-05 09:30
PROVIDERS: ADMIT Hospitalist; ATTEND Internal Medicine
PROC: 4A023N7 Measurement of Cardiac Sampling and Pressure, Left Heart, Percutaneous Approach (ICD-10-PCS; 2017-07-05)
PROC: B2151ZZ Fluoroscopy of Left Heart using Low Osmolar Contrast (ICD-10-PCS; 2017-07-05)
PROC: B2111ZZ Fluoroscopy of Multiple Coronary Arteries using Low Osmolar Contrast (ICD-10-PCS; principal; 2017-07-05 13:30)
DX: I31.9 Disease of pericardium, unspecified (principal); D69.3 Immune thrombocytopenic purpura; E66.01 Morbid (severe) obesity due to excess calories; I48.0 Paroxysmal atrial fibrillation; J44.9 Chronic obstructive pulmonary disease, unspecified; Z68.41 Body mass index [BMI] 40.0-44.9, adult; K21.9 Gastro-esophageal reflux disease without esophagitis; E78.5 Hyperlipidemia, unspecified; D86.9 Sarcoidosis, unspecified; G47.33 Obstructive sleep apnea (adult) (pediatric); T38.0X5A Adverse effect of glucocorticoids and synthetic analogues, initial encounter; I10 Essential (primary) hypertension; M19.90 Unspecified osteoarthritis, unspecified site; F32.9 Major depressive disorder, single episode, unspecified; Z88.6 Allergy status to analgesic agent; Z88.1 Allergy status to other antibiotic agents; Z88.8 Allergy status to other drugs, medicaments and biological substances; Z91.018 Allergy to other foods; Z91.048 Other nonmedicinal substance allergy status; Z98.1 Arthrodesis status; Z87.440 Personal history of urinary (tract) infections; Z90.710 Acquired absence of both cervix and uterus; Z90.49 Acquired absence of other specified parts of digestive tract; Z72.89 Other problems related to lifestyle; Z87.891 Personal history of nicotine dependence; Z95.3 Presence of xenogenic heart valve; Z85.828 Personal history of other malignant neoplasm of skin; Y92.009 Unspecified place in unspecified non-institutional (private) residence as the place of occurrence of the external cause; Z80.42 Family history of malignant neoplasm of prostate; Z82.3 Family history of stroke; Z79.82 Long term (current) use of aspirin; Z79.84 Long term (current) use of oral hypoglycemic drugs
CPT/HCPCS: 36415; 71045; 76937; 80048; 80053; 81003; 81015; 82550; 82553; 82565; 83036; 83605; 83690; 83735; 83880; 84443; 84484; 84520; 85025; 85379; 85610; 85730; 86140; 87077; 87086; 93005; 93458; 99156; 99157; 99223; 99283; A9270-GY; C1760; C1769; G0378; J1644; J1650; J2250; J2270; J2405; J3010

== ENCOUNTER 2019-07-27 13:04 | Inpatient (IN) | payer MEDICARE ==
[2019-07-27] MEDS ORDERED: Magnesium Sulfate 1 GM IV* 1 GM/100 ML BAG IV ONE (13:17)
[2019-07-27] MEDS ORDERED: NS 0.9% 1000 ML** 1,000 ML IV ONE (13:17)
--- NOTE | 2019-07-27 13:22 | ED ---
Palpitations / Dysrhythmia - HPI Summary HPI Summary: Patient is a 73 y/o F presenting to the ED for a chief complaint of palpitations for the last 10 days. She believes she is in atrial fibrillation. Patient denies fever, shortness of breath, or chest pain. No aggravating or alleviating factors are reported. Recently, patient had an aortic valve replacement performed at [facility] by Dr. Kei Irizarry. She takes blood thinners, but was changed from Xaralto to heparin prior to the surgery. She also takes metoprolol at night, last taken on the night on . PMHx is significant for atrial fibrillation, but history of CHF is denied. - History of Current Complaint Chief Complaint: EDDysrhythmPalp Time Seen by Provider: 07/27/19 13:08 Hx Obtained From: Patient Onset/Duration: Sudden Onset, Still Present Timing: Constant Severity Initially: Moderate Severity Currently: Moderate Character: Fast Aggravating: Nothing Alleviating: Nothing - Allergy/Home Medications Allergies/Adverse Reactions: Allergies Allergy/AdvReac Type Severity Reaction Status Date / Time Adhesive Tape Allergy Rash Verified 07/27/19 13:14 azithromycin Allergy Hives Verified 07/27/19 13:14 ciprofloxacin Allergy Hives Verified 07/27/19 13:14 lisinopril Allergy Coughing Verified 07/27/19 13:14 mikey Allergy Unknown Verified 07/27/19 21:32 Reaction Details meloxicam Allergy See Comment Verified 07/27/19 13:14 pollen extracts Allergy Eyes Verified 07/27/19 13:14 Itchy/Swollen/Red/Watery water chestnut Allergy Unknown Verified 07/27/19 21:32 Reaction Details dust mites Allergy Eyes Uncoded 06/29/19 09:03 Itchy/Swollen/Red/Watery Home Medications: Home Medications Cetirizine* [ZyrTEC 10 MG TAB*] 10 mg PO QAM 05/03/14 [History Confirmed ] buPROPion SR TAB* [Wellbutrin SR TAB*] 150 mg PO BID 05/03/14 [History Confirmed 07/27/19] Ascorbic Acid TAB* [Vitamin C TAB*] 500 mg PO BID 07/04/17 [History Confirmed 07/27/19] Dronedarone TAB* [Multaq TAB*] 400 mg PO BID 07/04/17 [History Confirmed ] Metoprolol Succinate XL TAB* [Toprol XL TAB*] 50 mg PO DAILY 07/04/17 [History Confirmed 07/27/19] Montelukast Sodium TAB* [Singulair 10 MG TAB*] 10 mg PO BEDTIME 07/04/17 [ History Confirmed 07/27/19] Multivitamins/Minerals TAB* [Theragran/minerals TAB*] 1 tab PO DAILY 07/04/17 [ History Confirmed 07/27/19] Rosuvastatin (NF) [Crestor (NF)] 10 mg PO MOWEFR 07/04/17 [History Confirmed ] metFORMIN* [Glucophage 500 MG TAB *] 500 mg PO BID 07/04/17 [History Confirmed 07/27/19] Cholecalciferol TAB* [Vitamin D TAB*] 400 unit PO DAILY 04/20/19 [History Confirmed 07/27/19] Ipratropium Br (Nf)0.03% Nasal [Ipratropium [place]] 2 spray BOTH NARES QID [History Confirmed 07/27/19] Loperamide HCl [Loperamide] 2 mg PO QID PRN 04/21/19 [History Confirmed 07/27/19 ] Aspirin EC TAB* [Ecotrin EC Low Dose 81 MG*] 81 mg PO DAILY 07/27/19 [History Confirmed 07/27/19] Furosemide TAB* [Lasix TAB*] 40 mg PO BID 07/27/19 [History Confirmed 07/27/19] HYDROcodone/ACETAMIN 5-325 MG* [Hamilton 5-325 TAB*] 1 - 2 tab PO Q4H PRN 07/27/19 [History Confirmed 07/27/19] Metoprolol Succinate XL TAB* [Toprol XL TAB*] 25 mg PO DAILY 30 Days #30 tab.xl 07/27/19 [Rx] Potassium Chlor TAB* [Klor Con ER TAB*] 20 meq PO BID 07/27/19 [History Confirmed 07/27/19] PMH/Surg Hx/FS Hx/Imm Hx Previously Healthy: Yes Endocrine/Hematology History: Reports: Hx Anticoagulant Therapy - Xaralto, heparin (prior to surgery), Hx Diabetes Cardiovascular History: Reports: Hx Angina, Hx Hypercholesterolemia, Hx Hypertension, Hx Valvular Heart Disease - HX Aortic stenosis, Other Cardiovascular Problems/Disorders - pericarditis Denies: Hx Congestive Heart Failure, Hx Coronary Artery Disease, Hx Myocardial Infarction, Hx Pacemaker/ICD Respiratory History: Reports: Hx Sleep Apnea, Other Respiratory Problems/ Disorders - SARCOIDOSIS 1967 Denies: Hx Asthma, Hx Chronic Obstructive Pulmonary Disease (COPD) GI History: Reports: Hx Gastroesophageal Reflux Disease - ON MED History: Reports: Other Problems/Disorders - UTI ABOUT 1 MONTH - NONE NOW Denies: Hx Chronic Renal Failure Musculoskeletal History: Reports: Hx Arthritis, Hx Bursitis - LEFT HIP, Hx Tendonitis - LEFT ANKLE Sensory History: Reports: Hx Contacts or Glasses Denies: Hx Hearing Aid Opthamlomology History: Reports: Hx Contacts or Glasses Psychiatric History: Reports: Hx Depression - CONTROL WITH MED Denies: Hx Panic Disorder - Cancer History Cancer Type, Location and Year: Basal cell carcinoma. - Surgical History Surgical History: Yes Surgery Procedure, Year, and Place: CERVICAL FUSION 2000 [facility]; BILAT ROTATOR CUFF REPAIRS, LT KNEE SCOPE 2004; GALLBLADDER 2006; HYSTERECTOMY 1999; TONSILECTOMY CHILD, LYMPHNODE BIOPSY 1967; CYST PALM OF LEFT HAND; AORTIC VALVE REPLACMENT Hx Anesthesia Reactions: No Infectious Disease History: No Infectious Disease History: Denies: Hx Clostridium Difficile, Hx Hepatitis, Hx Human Immunodeficiency Virus (HIV), Hx of Known/Suspected MRSA, Hx Shingles, Hx Tuberculosis, Hx Known/ Suspected VRE, Hx Known/Suspected VRSA, History Other Infectious Disease - Family History Known Family History: Negative: Respiratory Disease - Social History Occupation: Retired Lives: With Family Alcohol Use: None Alcohol Amount: Holidays Hx Substance Use: No Substance Use Type: Reports: None Hx Tobacco Use: Yes Smoking Status (MU): Former Smoker Type: Cigarettes Amount Used/How Often: 2 CIGARETTES PER DAY Length of Time of Smoking/Using Tobacco: 4-5 YEARS Have You Smoked in the Last Year: No Review of Systems Negative: Fever Positive: Palpitations. Negative: Chest Pain Negative: Shortness Of Breath All Other Systems Reviewed And Are Negative: Yes Physical Exam - Summary Physical Exam Summary: Constitutional: Well-developed, Well-nourished, Alert. (-) Distressed Skin: Warm, Dry HENT: Normocephalic; Atraumatic Eyes: Conjunctiva normal Neck: Musculoskeletal ROM normal neck. (-) JVD, (-) Stridor, (-) Nuchal rigidity Cardio: Rhythm irregularly irregular, rate tachycardic, Heart sounds normal; Intact distal pulses; Radial pulses are 2+ and symmetric. (-) Murmur Pulmonary/Chest wall: Effort normal. (-) Respiratory distress, (-) Wheezes, (-) Rales Abd: Soft, (-) tenderness, (-) Distension, (-) Guarding, (-) Rebound Musculoskeletal: (-) Edema Lymph: (-) Cervical adenopathy Neuro: Alert, Oriented x3 Psych: Mood and affect Normal Triage Information Reviewed: Yes Vital Signs Reviewed: Yes Procedures - Sedation Patient Received Moderate/Deep Sedation with Procedure: No Diagnostics - Laboratory Result Diagrams: 07/28/19 04:23 07/28/19 04:23 Lab Statement: Any lab studies that have been ordered have been reviewed, and results considered in the medical decision making process. - EKG 13:10 Cardiac Rate: Other Rate - 158 BPM EKG Rhythm: Atrial Flutter ST Segment: Normal Ectopy: None Summary of EKG Findings: An EKG at 13:10 reveals atrial flutter with 158 BPM, nml axis, nml intervals. No STEMI. No acute changes. ED physician has reviewed and interpreted this EKG. Re-Evaluation - Re-Evaluation First Eval Re-Evaluation Time: 14:10 Change: Improved - Labs w K 2.8, repleted. Mg 1.4 repleted. Given 2nd dose IV metoprolol, will give home PO dose. Course/Dx - Course Course Of Treatment: 73 y/o F w hx afib p/w Afib w RVR. - HR 150's. Given Mg, IV metoprolol w good effect. Electrolytes repleted. Given home dose PO metoprolol. Despite repleting electrolytes, giving additional doses metoprolol, patient intermittently in afib w RVR. Concern for afib leading to CHF exacerbation if persistent, admitted to medicine. - Diagnoses Provider Diagnoses: Hyperkalemia, Hypermagnesemia, Atrial fibrillation - Physician Notifications Discussed Care Of Patient With: Abhishek Velazquez - At 16:19, Dr. Abhishek Velazquez recommends increasing the beta sampson to 75 mg. At 19:00, Dr. Bandar Catalan reviewed the patients case and agrees to admit the patient to [facility]. Time Discussed With Above Provider: 16:19 Instructed by Provider To: Admit As Inpatient - Critical Care Time Critical Care Time: 30-74 min - Upon my evaluation, this patient had a high probability of imminent or life-threatening deterioration due to afib w RVR which required my direct attention, intervention, and personal management. I have personally provided 35 minutes of critical care time exclusive of time spent on separately billable procedures. Time includes review of laboratory data , radiology results, discussion with consultants, and monitoring for potential decompensation. Interventions were performed as documented above. Discharge ED - Sign-Out/Discharge Documenting (check all that apply): Patient Departure - Admit - Discharge Plan Condition: Stable Disposition: ADMITTED TO [facility] - Billing Disposition and Condition Condition: STABLE Disposition: Admitted to [facility] - Attestation Statements Document Initiated by Saundraibe: Yes Documenting Scribe: Debbie Austin Provider For Whom Saundraibe is Documenting (Include Credential): Stacy Garcia MD Scribe Attestation: I, Debbie Austin, scribed for Stacy Garcia MD on 07/28/19 at 0953. Scribe Documentation Reviewed: Yes Provider Attestation: The documentation as recorded by the Debbie palencia accurately reflects the service I personally performed and the decisions made by me, Stacy Garcia MD Status of Scribe Document: Viewed
--- OUTSIDE RECORDS SUMMARY | 2019-07-27 13:28 | XMS REPORT | Summary of Care ---
:1945 Author Organization [facility] Address [address] [address] Care Team Providers Name Role Phone Micheal Renteria Primary Care Provider Heydi Luna RN Signallamp Silk Screen Cutter Unavailable Reason for Referral Sleep Study (Routine) Status Reason Specialty Diagnoses / Referred By Referred To Procedures Contact Contact Pending Review Diagnoses SHILA (obstructive sleep apnea) Gabriela Felix, PREMIX OPERATOR CONCENTRATE [address] [place] [address] Reason for Visit Reason Comments Referral cpap Encounter Details Date Type Department Care Team Description 06/18/2019 Office Visit [facility] Gabriela Felix, SHILA (obstructive sleep Practice PREMIX OPERATOR CONCENTRATE apnea) (Primary Dx) [address] [facility] [address] [place], [place] [id number] [place] [address] [phone] Allergies Active Allergy Reactions Severity Noted Date Comments Tape: Silk Or Adhesive Rash High 10/02/2012 Allergy Hives High 10/02/2012 Mangos--severe oozing rash Ciprofloxacin-Cipro Hcl- Hives 07/22/2007 HIVES Cipro Betaine Environmental Respiratory Reaction 10/10/2009 Lisinopril Respiratory Reaction 11/22/2011 cough Meloxicam-Liniment Dermatologic Reaction 06/05/2011 Mobic : itchy skin Azithromycin 07/22/2007 RASH documented as of this encounter (statuses as of 06/18/2019) Medications Medication Sig Dispensed Refills Start Date End Date Status Multivital Oral Tab Take by mouth 0 Active THREE TIMES PER WEEK. ascorbic acid 500 MG Take 500 mg by 0 Active Oral Tab mouth TWICE DAILY. metoprolol (TOPROL XL) Take 50 mg by 0 Active 50 MG Oral TABLET SR 24 mouth DAILY. HR dronedarone (MULTAQ) Take 400 mg by 0 Active 400 MG Oral Tab mouth TWO TIMES DAILY WITH MEALS. Cetirizine HCl (ZYRTEC Take by mouth 0 Active ALLERGY PO) DAILY. Blood Glucose Brand:free style 100 Strip 0 04/23/2014 Active Monitoring Suppl (BLOOD lite Dx: 250.00 GLUCOSE TEST STRIPS Insulin dependent STRP) Test Blood Glucose 3 time(s) A DAY [place] 09/18" 30G X 1 Device by Does 100 Each 3 05/19/2014 Active 8 MM Does not apply not apply route Misc TWICE DAILY. Cholecalciferol Take 1,000 Units 0 Active (VITAMIN D) 2000 UNITS by mouth DAILY. Oral Cap Glucose Blood USE DIRECTED 100 Strip 5 01/30/2017 Active (FREESTYLE LITE) In DAILY Vitro Strip metronidazole Apply a thin film 45 g 1 06/04/2018 Active (METROGEL) 0.75 % Apply on the nose bryce externally on bump once GelIndications: Rosacea daily ONETOUCH DELICA LANCETS USE DAILY 100 Each 3 06/08/2018 Active 33G Does not apply DIRECTED MiscIndications: Type II diabetes mellitus, well controlled (HCC) ONETOUCH VERIO In Vitro TEST BLOOD SUGAR 100 Strip 3 07/14/2018 Active StripIndications: Type ONE TIME DAILY II diabetes mellitus, well controlled (HCC) ipratropium (ATROVENT) [place] 2 Sprays in 15 [place] 5 09/05/2018 Active 0.06 % Nasal nose TWICE DAILY. SolutionIndications: Vasomotor rhinitis promethazine Take 1 Tab by 30 Tab 0 12/09/2018 Active (PHENERGAN) 25 MG Oral mouth EVERY EIGHT Tab HOURS NEEDED (nausea). Omeprazole 40 MG Oral Take 1 Cap by 30 Cap 3 12/16/2018 Active CAPSULE DELAYED RELEASE mouth DAILY. Rosuvastatin Calcium Take 1 Tab by 30 Tab 3 12/28/2018 Active (CRESTOR) 10 MG Oral mouth THREE TIMES Tab PER WEEK. metFORMIN (GLUCOPHAGE) TAKE 1 TABLET BY 180 Tab 1 01/06/2019 Active 500 MG Oral Tab MOUTH TWO TIMES DAILY Additional Information Patient taking differently: 500 mg Oral BID, Reported on 05/16/2019 1:09 PM XARELTO 20 MG Oral Tab TAKE 1 TABLET BY MOUTH 30 Tab 5 01/30/2019 Active EVERY DAY montelukast (SINGULAIR) 10 MG TAKE 1 TABLET BY MOUTH 30 Tab 5 03/05/2019 Active Oral Tab EVERY DAY buPROPion (WELLBUTRIN SR) 150 TAKE 1 TABLET BY MOUTH TWO 60 Tab 1 2018 Active MG Oral TABLET SR 12 HR TIMES DAILY loperamide (IMODIUM) 2 MG TAKE 1 CAPSULE BY MOUTH 120 Cap 0 05/11/2019 Active Oral Cap FOUR TIMES DAILY NEEDED FOR DIARRHEA tramadol (ULTRAM) 50 MG Oral Take 1 Tab by mouth EVERY 42 Tab 0 05/16/2019 Active Tab FOUR HOURS NEEDED (leg pain). Max Daily Amount: 300 mg. documented as of this encounter (statuses as of 06/18/2019) Active Problems Problem Noted Date Pseudophakia, both eyes 02/25/2018 Recurrent major depressive disorder, in full remission 01/08/2018 Posterior vitreous detachment, both eyes 03/25/2015 Overview: Fresh OS Preglaucoma of both eyes 03/25/2015 Overview: C/D OS>OD, + FH Diabetes mellitus 09/03/2013 Overview: Per Dr. Renteria nutrition referral on 08/31/13 - Diabetes due to Prednisone. Vasomotor rhinitis 10/02/2012 Allergic rhinitis due to pollen 07/29/2012 Idiopathic thrombocytopenic purpura 02/21/2012 Sleep disorder breathing 03/21/2010 AK (actinic keratosis) 08/23/2009 OA (osteoarthritis) 08/23/2009 Tachycardia 07/22/2007 Palpitations 07/22/2007 Dyspareunia 07/22/2007 Pulmonary Nodule 07/22/2007 GERD 07/22/2007 Urge Incontinence 07/22/2007 BMI 40.0-44.9, adult Overview: This patient's BMI has been calculated and is above average, and BMI management plan is completed. General patient education discussion including: weight loss link to reduction of risk factors for car diac and other diseases Exercise intervention: documented as of this encounter (statuses as of 06/18/2019) Resolved Problems Problem Noted Date Resolved Date Combined form of age-related cataract, left eye 02/11/2018 02/25/2018 Pseudophakia of right eye 02/11/2018 02/25/2018 Depression 03/06/2010 09/05/2018 Personal history of colonic polyps 07/22/2007 08/23/2009 Sarcoidosis 07/22/2007 08/23/2009 Dysfunction of eustachian tube 07/22/2007 08/23/2009 Thrombocytopenia 10/27/2018 Overview: marrow ok, treat when <50 K documented as of this encounter (statuses as of 06/18/2019) Immunizations Name Administration Dates Next Due Influenza (IM) Preservative Free 02/09/2013, 02/26/2012, 02/05/2011, 03/01/2010 Influenza Vaccine 65 Yrs + 02/19/2019 Influenza Vaccine High Dose 01/08/2018, 02/12/2017, 02/15/2016, 03/08/2015, 03/03/2014 Influenza Vaccine Whole 02/18/2008, 03/20/2007 PNEUMOCOCCAL POLYSACCHARIDE VACCINE 02/01/2010 Pneumococcal Conjugate(13 Valent) 02/15/2016 TDAP Vaccine 02/09/2013 documented as of this encounter Social History Tobacco Use Types Packs/Day Years Used Date Former Smoker 0 Smokeless Tobacco: Never Used Comments: last quit 95 Alcohol Use Drinks/Week oz/Week Comments Yes 0 Standard drinks or equivalent 0.0 little Sex Assigned at Date Recorded Not on file documented as of this encounter Last Filed Vital Signs Vital Sign Reading Time Taken Comments Blood Pressure 128/60 06/18/2019 10:27 AM EST Pulse - - Temperature - - Respiratory Rate - - Oxygen Saturation - - Inhaled Oxygen Concentration - - Weight 112.5 kg (248 lb) 06/18/2019 10:27 AM EST Height 160 cm (5' 3") 06/18/2019 10:27 AM EST Body Mass Index 43.93 06/18/2019 10:27 AM EST documented in this encounter Patient Instructions Patient InstructionsGabriela Felix FNP - 06/18/2019 10:20 AM ESTSleep Study ordered - pt prefers to have it done in [place] documented in this encounter Progress Notes Gabriela Felix FNP - 06/18/2019 10:20 AM EST PATIENT: Heather Gilbert : 1945 DATE OF SERVICE: 06/18/2019 CHIEF COMPLAINT: Chief Complaint Patient presents with ? Referral cpap Subjective HISTORY OF PRESENT ILLNESS: Heather Gilbert is a 73-y.o. female. HPI Had sleep study 10 years ago. Recently got new CPAP - per medical supply pt needs new sleep study. Past Medical History: Diagnosis Date ? Acne rosacea ? AK (actinic keratosis) ? Aortic stenosis moderate 2011 mod severe 2013 ? Arthritis ? Asthma ? Basal cell carcinoma left lower lip ? BMI 40.0-44.9, adult ([facility]) ? CTS (carpal tunnel syndrome) 2014 mild right not cervical ? CTS (carpal tunnel syndrome) s/p surgery right ? DDD (degenerative disc disease), cervical ? Diabetes mellitus ([facility]) ? Dysfunction of eustachian tube 07/22/2007 ? Dyspareunia 07/22/2007 vulvar atrophy ? Eye disease glaucoma suspect/pvd ? GERD 07/22/2007 ? Ischemic cardiomyopathy ? Lichen planus ? Neck pain s/p fusion ? Osteopenia 2015 8.6/1.1. 2019 9.8 and 1.8 ? PAF (paroxysmal atrial fibrillation) ([facility]) 2010 Dr Fish ? Palpitations 07/22/2007 tachycardia, apc's ? Personal history of colonic polyps 07/22/2007 2009due 2013 hyperplastic ? Postmenopausal ? Problems with hearing ? Pulmonary Nodule 07/22/2007 ? S/P AVR (aortic valve replacement) 2013 bovine post op afib MAZE ? Sarcoidosis 07/22/2007 ? Seasonal allergies tree, grass and ragweed pollens on RAST; low +cat and dust mite ? Sleep apnea ? Sleep disorder breathing 03/21/2010 RDI 20 cpap 8cm ? Tendonitis of foot Left foot ? Thrombocytopenia ([facility]) marrow ok, treat when <50 K ? Urge Incontinence 07/22/2007 ? Vasomotor rhinitis Family History Problem Relation Age of Onset ? Breast Cancer Sister 55 ? Diabetes Sister ? No Known Problems Mother ? Cancer Father prostate, [place] ? Breast Cancer Maternal Grandmother ? Breast Cancer Other niece ? Glaucoma Paternal Grandfather ? Blindness Paternal Grandfather ? Macular Degeneration No family history ? Other Eye Problems No family history Current Outpatient Medications Medication Sig ? ascorbic acid 500 MG Oral Tab Take 500 mg by mouth TWICE DAILY. ? Blood Glucose Monitoring Suppl (BLOOD GLUCOSE TEST STRIPS STRP) Brand: free style lite Dx: 250.00 Insulin dependent Test Blood Glucose 3 time(s) A DAY ? buPROPion (WELLBUTRIN SR) 150 MG Oral TABLET SR 12 HR TAKE 1 TABLET BY MOUTH TWO TIMES DAILY ? Cetirizine HCl (ZYRTEC ALLERGY PO) Take by mouth DAILY. ? Cholecalciferol (VITAMIN D) 2000 UNITS Oral Cap Take 1,000 Units by mouth DAILY. ? dronedarone (MULTAQ) 400 MG Oral Tab Take 400 mg by mouth TWO TIMES DAILY WITH MEALS. ? Glucose Blood (FREESTYLE LITE) In Vitro Strip USE DIRECTED DAILY ? ipratropium (ATROVENT) 0.06 % Nasal Solution [place] 2 Sprays in nose TWICE DAILY. ? loperamide (IMODIUM) 2 MG Oral Cap TAKE 1 CAPSULE BY MOUTH FOUR TIMES DAILY NEEDED FOR DIARRHEA ? metFORMIN (GLUCOPHAGE) 500 MG Oral Tab TAKE 1 TABLET BY MOUTH TWO TIMES DAILY (Patient taking differently: Take 500 mg by mouth TWICE DAILY.) ? metoprolol (TOPROL XL) 50 MG Oral TABLET SR 24 HR Take 50 mg by mouth DAILY. ? metronidazole (METROGEL) 0.75 % Apply externally Gel Apply a thin film on the nose bryce on bump once daily ? montelukast (SINGULAIR) 10 MG Oral Tab TAKE 1 TABLET BY MOUTH EVERY DAY ? Multivital Oral Tab Take by mouth THREE TIMES PER WEEK. ? Omeprazole 40 MG Oral CAPSULE DELAYED RELEASE Take 1 Cap by mouth DAILY. ? ONETOUCH DELICA LANCETS 33G Does not apply Misc USE DAILY DIRECTED ? ONETOUCH VERIO In Vitro Strip TEST BLOOD SUGAR ONE TIME DAILY ? [place] 5/16" 30G X 8 MM Does not apply Misc 1 Device by Does not apply route TWICE DAILY. ? promethazine (PHENERGAN) 25 MG Oral Tab Take 1 Tab by mouth EVERY EIGHT HOURS NEEDED (nausea). ? Rosuvastatin Calcium (CRESTOR) 10 MG Oral Tab Take 1 Tab by mouth THREE TIMES PER WEEK. ? tramadol (ULTRAM) 50 MG Oral Tab Take 1 Tab by mouth EVERY FOUR HOURS NEEDED (leg pain).Max Daily Amount: 300 mg. ? XARELTO 20 MG Oral Tab TAKE 1 TABLET BY MOUTH EVERY DAY No current facility-administered medications for this visit. Allergies Allergen Reactions ? Adhesive [Tape: Silk Or Adhesive] Rash ? Allergy Hives Mangos--severe oozing rash ? Ciprofloxacin-Cipro Hcl- Cipro Betaine Hives HIVES ? Environmental Respiratory Reaction ? Lisinopril Respiratory Reaction cough ? Meloxicam-Liniment Dermatologic Reaction Mobic : itchy skin ? Zithromax [Azithromycin] RASH Social History Socioeconomic History ? Marital status: Spouse name: Not on file ? Number of children: Not on file ? Years of education: Not on file ? Highest education level: Not on file Occupational History ? Not on file Social Needs ? Financial resource strain: Not on file ? Food insecurity Worry: Not on file Inability: Not on file ? Transportation needs Medical: Not on file Non-medical: Not on file Tobacco Use ? Smoking status: Former Smoker Packs/day: 0.00 ? Smokeless tobacco: Never Used ? Tobacco comment: last quit 95 Substance and Sexual Activity ? Alcohol use: Yes Alcohol/week: 0.0 standard drinks Comment: little ? Drug use: No ? Sexual activity: Yes Comment: Lifestyle ? Physical activity Days per week: Not on file Minutes per session: Not on file ? Stress: Not on file Relationships ? Social connections Talks on phone: Not on file Gets together: Not on file Attends anabaptist service: Not on file Active member of club or organization: Not on file Attends meetings of clubs or organizations: Not on file Relationship status: Not on file ? Intimate partner violence Fear of current or ex partner: Not on file Emotionally abused: Not on file Physically abused: Not on file Forced sexual activity: Not on file Other Topics Concern ? Not on file Social History Narrative Lives in [place] with . Cats in home. REVIEW OF SYSTEMS: Review of Systems Constitutional: Positive for malaise/fatigue. Negative for chills and fever. Respiratory: Negative for shortness of breath. Cardiovascular: Negative for chest pain and palpitations. Neurological: Negative for headaches. Objective PHYSICAL EXAM: VITALS: BP 128/60 | Ht 5' 3" (1.6 m) | Wt 248 lb (112.5 kg) | LMP (LMP Unknown) | BMI 43.93 kg/m Body mass index is 43.93 kg/m. Physical Exam Vitals signs and nursing note reviewed. Constitutional: Appearance: She is obese. HENT: Head: Normocephalic and atraumatic. Neck: Comments: 16 cm Skin: General: Skin is warm and dry. Coloration: Skin is not cyanotic. Neurological: Mental Status: She is alert and oriented to person, place, and time. Cranial Nerves: Cranial nerves are intact. Motor: Motor function is intact. Gait: Gait is intact. Sunset sleep scale done - 10 ASSESSMENT / IMPRESSION: ICD-9-CM ICD-10-CM 1. SHILA (obstructive sleep apnea) 327.23 G47.33 REFER TO SLEEP STUDY LAB Plan Sleep Study ordered - pt prefers to have it done in [place] Will try home study Author: SARAI Chowdary 06/18/2019 11:38 documented in this encounter Plan of Treatment Date Type Specialty Care Team Description 08/11/2019 Office Visit Family Practice Micheal Renteria MD [address] [place] [address] [phone] 03/16/2020 Office Visit Dermatology Aliyah Sotomayor MD [address] [facility] [place] [address] 03/29/2020 Ocular Visit Optometry Cristian Ron, OD [address] [facility] [place] [address] Name Type Priority Associated Diagnoses Order Schedule REFER TO SLEEP STUDY Referral Routine SHILA (obstructive sleep Ordered: 06/18 LAB apnea) Health Maintenance Due Date Last Done Comments HIV SCREENING 09/08/1960 ZOSTER IMMUNIZATION SERIES 1994 (1 of 2) Colonoscopy 02/16/2019 02/16/2014, 11/02/2013 (Postponed), 07/23/2008, Additional history exists HEMOGLOBIN A1C 08/06/2019 05/07/2019, 01/15/2019, 08/07/2018, Additional history exists URINE MICROALBUMIN 08/08/2019 08/07/2018, 06/20/2017, 08/30/2016, Additional history exists FALL RISK ASSESSMENT 03/03/2020 03/03/2019, 03/03/2019 FOOT EXAM 03/03/2020 03/03/2019, 03/03/2019, 08/07/2018, Additional history exists MEDICARE ANNUAL WELLNESS 03/03/2020 03/03/2019, 12/11/2016, VISIT 09/09/2015, Additional history exists MAMMOGRAM (SCREENING) 04/16/2020 04/16/2019, 03/05/2019, 01/08/2018, Additional history exists DEPRESSION SCREENING 04/21/2020 04/21/2019, 04/21/2019 LIPID DISORDER SCREENING 05/07/2020 05/07/2019, 12/28/2018, 08/07/2018, Additional history exists Diabetic Eye Exam 03/27/2021 03/27/2019, 03/27/2019, 03/27/2019, Additional history exists DTaP/Tdap/Td Vaccines (2 - 02/09/2023 02/09/2013 Tdap) OSTEOPOROSIS SCREENING 03/12/2029 03/12/2019, 09/15/2015 PNEUMOCOCCAL 65+YRS Completed 02/15/2016, 02/01/2010 INFLUENZA VACCINE Completed 02/19/2019, 01/08/2018, 02/12/2017, Additional history exists HEPATITIS A IMMUNIZATION Aged Out No longer eligible SERIES based on patient's age to complete this topic HPV IMMUNIZATION SERIES Aged Out No longer eligible based on patient's age to complete this topic MENINGOCOCCAL VACCINE IMM Aged Out No longer eligible based on patient's age to complete this topic documented as of this encounter Goals Goal Patient Goal Associated Recent Patient-Stated? Author Type Problems Progress Depression Depression 0 (04/21/2019 No Erlinda, screen (PHQ-9) 12:54 PM EST) Mahogany, total score < 5 Note: This is an individualized treatment (depression) goal for [place]: Displayed above is your goal for a depression screening (PHQ-9) score that would indicate good control of your depression. Glycohemoglobin A1c < 7.0 Diabetes 7.5 (05/07/2019 9:45 No Mahoagny Coffey, AM EST) Note: This is an individualized treatment (diabetes control, HgbA1C) goal for [place]: Displayed above is your progress towards your HgbA1C goal. Your goal is shown above (on the left); your most recent HgbA1C is shown on the right. Note that lower numbers are better. Keep a regular sleep schedule Lifestyle No Mahogany Coffey MD Note: This is an individualized lifestyle goal for Heather B [place]oll[place]: Please maintain a regular sleep schedule. This may help with some symptoms of depression. Keep immunizations current Lifestyle No Mahogany Coffey MD Note: This is an individualized lifestyle goal for Heather Gilbert: Please be sure to keep up-to-date on recommended immunizations. For example, this would include a yearly influenza vaccine. Immunization status can be seen by looking at the Health Maintenance sections of your e[facility], Plan of Care, and any After Visit Summaries. Unit - lb < 200 Result Component No Micheal Renteria MD Take all prescribed medications as Self-management No Mahogany Coffey MD directed Note: This is an individualized self-management goal for Heather Gilbert: Please take all prescribed medications as directed. 1. Do not skip doses. If you cannot afford your medications, talk with your doctor. 2. Use a pill reminder system such as a pill box if needed. Your pharmacist can help you with this. 3. Contact your Pharmacy 5 days before your medication runs out. If you cannot take your medications for any reasons, talk with your doctor. 4. Please bring all of your medication bottles and inhalers (or a list of all your medications/inhalers) with you to every visit. Potential barriers to meeting all of your care plan goals will continue to be addressed on an ongoing basis. documented as of this encounter Implants Implanted Type Area Mail Reader Device Shelf Expiration Model / Serial Identifier Date / Lot Iol, [id number] 18.5 Diopter - [id number] [id number] / Implanted: Qty: 1 on 02/10/2018 by Pk Boyd MD at [facility] [id number] / Iol, [id number] 20.5 Diopter - [id number] [id number] / Implanted: Qty: 1 on 02/24/2018 by Pk Boyd MD at [facility] [id number] / documented as of this encounter Results Not on filedocumented in this encounter Visit Diagnoses Diagnosis SHILA (obstructive sleep apnea) Obstructive sleep apnea (adult) (pediatric) documented in this encounter Insurance Payer Benefit Plan / Subscriber ID Effective Dates Phone Address Type Group AETNA MEDICARE AETNA MEDICARE [id number] 2016-Present [employer] ADVANTAGE ADVANTAGE Guarantor Name Account Type Relation to Date of Phone Billing Patient Address Heather Gilbert Personal/Family 1945 [address] [phone] [place], [place] ([place]) [id number] documented as of this encounter
--- OUTSIDE RECORDS SUMMARY | 2019-07-27 13:28 | XMS REPORT ---
:1945 Author Organization [facility] Care Team Providers Name Role Phone Unavailable Unavailable Unavailable Problems Condition Condition Condition Status Onset Resolution Last Treating Comments Name Details Category Date Date Treatment Clinician Date Nonrheumati Nonrheumati Diagnosis Active 2020-0 Allison c aortic c aortic 3-10 Wendela (valve) (valve) [id number] stenosis stenosis Allergies, Adverse Reactions, Alerts Allergy Name Allergy Status Severity Reaction(s) Onset Inactive Treating Comments Type Date Date Clinician bee venom Base Active Unknown Anaphylaxis 2020-0 Cecilia Beam protein Ingredient 3-10 (honey bee) adhesive Base Active Unknown Rash 2020-0 Cecilia Beam tape Ingredient 3-10 mikey flavor Base Active Unknown blisters 2020-0 Cecilia Beam Ingredient 3-10 meloxicam Base Active Unknown Decreased 2020-0 Cecilia Beam Ingredient Platelets 3-10 azithromycin Base Active Unknown Rash 2020-0 Cecilia Beam Ingredient 3-10 ciprofloxaci Base Active Unknown Rash 2020-0 Cecilia Beam n Ingredient 3-10 lisinopril Base Active Unknown Rash 2020-0 Cecilia Beam Ingredient 3-10 Medications Ordered Filled Start Stop Current Ordering Indication Dosage Frequency Signature Comments Components Medication Medication Date Date Medication? Clinician (SIG) Name Name No Known No Known No None None None Medications Medications For This For This Patient Patient Procedures This patient has no known procedures. Results This patient has no known results.
--- OUTSIDE RECORDS SUMMARY | 2019-07-27 13:28 | XMS REPORT ---
:1945 Author Organization [facility] Care Team Providers Name Role Phone Unavailable Unavailable Unavailable Problems Condition Condition Condition Status Onset Resolution Last Treating Comments Name Details Category Date Date Treatment Clinician Date Nonrheumati Nonrheumati Diagnosis Active 2020-0 Allison c aortic c aortic 3-10 Wendela (valve) (valve) [id number] stenosis stenosis Allergies, Adverse Reactions, Alerts Allergy [...]
[2019-07-27] MEDS: Metoprolol Tartrate IV* 1 MG/ML 5 ML VIAL IV PRN ×3 (13:49→19:01)
[2019-07-27 13:54] LABS: ABS Basophils 0.1 10^3/ul (0-0.2); ABS Eosinophils 0.2 10^3/ul (0-0.6); ABS Lymphocytes 1.6 10^3/ul (1.0-4.8); ABS Monocytes 0.7 10^3/ul (0-0.8); ABS Neutrophils 4.7 10^3/ul (1.5-7.7); Eosinophil % 2.2 %; Hematocrit 37 % (35-47); Hemoglobin 13.1 g/dL (12.0-16.0); Lymphocyte % 22.6 %; Mean Corpuscular HGB Conc 35 g/dL (31-36); Mean Corpuscular Hemoglobin 31 pg (27-31); Mean Corpuscular Volume 89 fL (80-97); Mean Platelet Volume 8.6 fL (7.4-10.4); Platelet Count 78 10^3/uL (150-450); Red Blood Count 4.18 10^6 /uL (3.70-4.87); Red Cell Distribution Width 14 % (10-15); White Blood Count 7.3 10^3/uL (3.5-10.8)
[2019-07-27] MEDS ORDERED: Metoprolol Succinate XL TAB* 50 MG PO ONE (14:06)
[2019-07-27 14:08] LABS: Albumin 3.9 g/dL (3.2-5.2); Albumin/Globulin Ratio 1.7 (1-3); BUN/Creatinine Ratio 22.5 (8-20); EGFR African American 58.1 (>60); Globulin 2.3 g/dL (2-4); Magnesium 1.4 mg/dL (1.9-2.7); Potassium 2.8 mmol/L (3.5-5.0); Total Bilirubin 0.6 mg/dL (0.2-1.0); Total Protein 6.2 g/dL (6.4-8.9)
[2019-07-27] MEDS ORDERED: Magnesium Sulf 4 GM/100 ML IV* 4,000 MG/100 ML BAG IVPB ONE (14:11)
[2019-07-27] MEDS ORDERED: KCL 20 MEQ/100 ML IVPREMIX* 20 MEQ/100 ML BAG IV ONE ×2 (14:12→19:02)
[2019-07-27] MEDS ORDERED: Potassium Chlor TAB* 20 MEQ TAB.ER PO ONE (14:12)
[2019-07-27] MEDS ORDERED: Magnesium Sulfate IV* 3 GM in NS 0.9% 100 ML* 100 ML IVPB ONE (16:23)
[2019-07-27] MEDS ORDERED: NS 0.9% 100 ML* 100 ML ONE (16:43)
[2019-07-27] MEDS ORDERED: Metoprolol Succinate XL TAB* 25 MG PO ONE (16:55)
[2019-07-27] MEDS ORDERED: Loperamide CAP* 2 MG PO PRN (19:28)
[2019-07-27] MEDS ORDERED: Dextrose 50% Syringe 50 ML* 25 GM/50 ML SYRINGE IV PUSH PRN (19:34)
[2019-07-27] MEDS ORDERED: Furosemide IV* 10 MG/ML VIAL (40 MG) IV ONE (20:54)
[2019-07-27] MEDS ORDERED: Insulin LISPRO* 1 UNITS UNIT SUBCUT SCH ×2 (21:00)
[2019-07-27] MEDS: Ascorbic Acid TAB* 500 MG PO SCH (22:54)
[2019-07-27] MEDS: buPROPion SR TAB.SR* 150 MG PO SCH (22:54)
[2019-07-27] MEDS: Dronedarone TAB* 400 MG PO SCH (22:54)
[2019-07-27] MEDS: Montelukast Sodium TAB* 10 MG PO SCH (22:54)
[2019-07-27] MEDS: CMCS: Rosuvastatin (NF) 10 MG TAB PO SCH (23:15)
[2019-07-28 04:56] LABS: ABS Eosinophils 0.2 10^3/ul (0-0.6); ABS Lymphocytes 2.3 10^3/ul (1.0-4.8); ABS Monocytes 0.8 10^3/ul (0-0.8); ABS Neutrophils 3.6 10^3/ul (1.5-7.7); Hematocrit 34 % (35-47); Lymphocyte % 33.1 %; Mean Corpuscular HGB Conc 35 g/dL (31-36); Mean Corpuscular Hemoglobin 31 pg (27-31); Mean Corpuscular Volume 89 fL (80-97); Mean Platelet Volume 8.3 fL (7.4-10.4); Nucleated Red Blood Cells % 0.1; Platelet Count 61 10^3/uL (150-450); Red Blood Count 3.84 10^6 /uL (3.70-4.87); Red Cell Distribution Width 14 % (10-15)
[2019-07-28 05:04] LABS: BUN/Creatinine Ratio 19.8 (8-20); Calcium 8.8 mg/dL (8.6-10.3); EGFR African American 61.3 (>60); EGFR Non-African American 50.7 (>60); Potassium 3.2 mmol/L (3.5-5.0)
--- NOTE | 2019-07-28 07:48 | HP ---
Amended report to enter date of admission. HISTORY AND PHYSICAL: DATE OF ADMISSION: 07/27/19. HISTORY OF PRESENT ILLNESS: This is a 73-year-old morbidly obese female with a past medical history significant for paroxysmal atrial fibrillation, hypertension, hyperlipidemia, and in the past bovine aortic valve replacement, who presented to the ED with a chief complaint palpitations for the past 10 days. The patient believes she is in atrial fibrillation. Also stated that problem started after a chicken dinner that her prepared on 07/17/19. She said that this problem is associated with lightheadedness and mild shortness of breath, but there is no chest pain. She also denied fever, nausea, and vomiting, noted no aggravating or alleviating factors. The patient recently had repeat aortic valve replacement performed at the [facility] by Dr. Kei Irizarry (07/08/2019). She stated she was originally on Xarelto, which was stopped by her doctor because she also has a history of ITP. She stated that she thought this problem will go away, but is progressively getting worse, so she decided to come to the ED. PAST MEDICAL HISTORY: ITP, hypertension, hyperlipidemia, GERD, paroxysmal atrial fibrillation, depression, steroid-induced diabetes, sarcoidosis. PAST SURGICAL HISTORY: Bovine aortic valve replacement in 2013, rotator cuff repair bilaterally, cholecystectomy, lymph node removal in 1968 at the time of diagnosis of sarcoidosis, tonsillectomy, hysterectomy, Mohs surgery around the lower lip for basal cell carcinoma, left knee arthroscopy, fusion of cervical spine. MEDICATIONS: 1. Metformin 500 mg b.i.d. 2. Zyrtec 10 mg p.o. daily 3. Vitamin C 500 mg b.i.d. 4. Multaq 400 mg p.o. b.i.d. 5. Metoprolol succinate 50 mg p.o. daily. This has not been changed to 75 mg p.o. daily per Cardiology. 6. Montelukast or Singulair 10 mg p.o. at bedtime. 7. Multivitamins 1 tablet p.o. daily. 8. Crestor 10 mg p.o. every Saturday, Wednesdays, and Fridays. 9. Vitamin D 400 units daily. 10. Loperamide 2 mg p.o. as needed for diarrhea. 11. Baby aspirin 1 daily. 12. Lasix 40 mg p.o. b.i.d. 13. Potassium chloride 20 mEq p.o. b.i.d. 14. [place] 1 to 2 tablets q.4 p.r.n. as needed for pain. Medications given in the ED: The patient was given 2 doses of IV metoprolol 5 mg and also metoprolol succinate 25 mg p.o. once. ALLERGIES: LISINOPRIL, AZITHROMYCIN, MELOXICAM, and CIPRO. FAMILY HISTORY: Mom she believes of possible pneumonia. Mom also had heart problems, osteoarthritis, and total hip replacement. Dad had a history of prostate cancer, lymphoma, and stroke. Both dad and mom were alcoholics. Sister had diabetes and stroke. The other sister has a history of breast cancer and stomach cancer. SOCIAL HISTORY: The patient is a former smoker. She quit in 1967. She drinks alcohol on occasion, but do not tend to favor nonalcoholic drinks. She is retired. She is . Her is her healthcare proxy. REVIEW OF SYSTEMS: Negative for fever. Negative for chest pain. Positive for palpitations and lightheadedness. Positive for shortness of breath, mild. All other systems reviewed and negative or as stated in the HPI. PHYSICAL EXAMINATION CONSTITUTIONAL: A well-developed, well-nourished, alert, and awake, in no obvious distress. VITAL SIGNS: Temperature 98.5, heart rate 116, respiratory rate 19, BP 103/74, O2 saturation 97%. HEENT: Normocephalic, atraumatic. Eyes: Conjunctivae are normal. No conjunctival icterus. EOMI. NECK: Supple. No JVD. No nuchal rigidity. No thyromegaly. No lymphadenopathy. PULMONARY: Normal respiratory effort. Clear to auscultation bilaterally. No wheezes. No rales. CARDIOVASCULAR: S1, S2 heard. Rhythm irregularly irregular. Tachycardic. No murmurs. ABDOMEN: Obese, soft, nontender, nondistended. No guarding. No rebound. MUSCULOSKELETAL: Positive edema. There is no cyanosis or clubbing. There is full active range of motion in all 4 extremities. NEUROLOGIC: Alert, awake, oriented x3. Cranial nerves II through XII grossly intact. Sensation is intact to light touch throughout. Strength is 5/5 and symmetric in both upper and lower extremities bilaterally. PSYCHIATRIC: Normal mood and affect. Normal speech. Insight intact. SKIN: Warm and dry. No rashes. DIAGNOSTIC STUDIES/LAB DATA: Hematology: WBC 7.3, RBC 4.18, hemoglobin 13.1, HCT 37, MCV 89, MCH 31, MCHC 35, RDW 14, platelet count 78, MPV 8.6, neutrophils 54.1, absolute neutrophil count 4.7. Chemistry: Sodium 137, potassium 2.8, chloride 100, carbon dioxide 26, anion gap 11, BUN 25, creatinine 1.11, estimated GFR non- 48.0, BUN/creatinine ratio 22.5, glucose 182, calcium 9.0, magnesium 1.4. Total bilirubin 0.60, AST 13, ALT 14, alkaline phosphatase 100. Total protein 6.2, albumin 3.9, globulin 2.3, albumin/globulin ratio 1.7. EKG: Cardiac rate 158, rhythm atrial flutter, ST segment normal, ectopy none, no NSTEMI, no acute changes. ASSESSMENT AND PLAN: A 73-year-old obese female with past medical history significant for atrial fibrillation, hypertension, hyperlipidemia, status post aortic valve replacement, presented to the ED with chief complaint of palpitations. The patient believes she is in atrial fibrillation with mild shortness of breath and lightheadedness, presented for evaluation. 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 We will start home medications beta-sampson as per Cardiology, metoprolol succinate 50 mg p.o. daily has been changed to 75 mg p.o. daily. So, I will start the patient on the new dose regimen. There is no indication for Cardizem IV drip at this moment. The patient will be monitored and IV metoprolol, will be used to break the atrial fibrillation and RVR, if it does not break we will escalate further. We will start the patient back on Xarelto 20 mg p.o. daily, starter dose will be given now and monitor cardiac enzymes. Echocardiogram for cardiac functions , cardiology evaluation a.m. The patient denied history of congestive heart failure, but she is on chronic p.o. Lasix 40 mg b.i.d. Still there is significant leg swelling. I will start the patient on IV Lasix 40 mg starter dose and 40 mg p.o. b.i.d. For diabetes mellitus, I will hold the metformin and to start the patient on sliding scale with diabetic diet. The patient is on daily potassium chloride supplement 20 mEq b.i.d. We will monitor and replete accordingly. For hypomagnesemia, the patient already received 2 g of magnesium sulfate as IVPB. We will monitor and replete accordingly. The patient came in with a potassium of 2.8. For hypokalemia, the patient already received 40 mEq p.o. one time dose and 20 mEq IVPB 2 doses. We will monitor and replete accordingly. The patient will be full code at this time. For DVT prophylaxis, the patient already placed back on Xarelto 20 mg daily. Idiopathic thrombocytopenic purpura. The patient's platelet count is low; however, this is not her lowest level. We will monitor for any signs of bleeding. For hypertension, the patient will continue on the new regimen of metoprolol succinate 75 mg p.o. daily with holding parameter. For depression, the patient will continue Wellbutrin 150 mg p.o. twice daily. For hyperlipidemia, the patient to continue on statin. Fluids and electrolytes will be repleted as needed. TIME SPENT: Time spent on this admission 65 minutes. [id number]/[facility] #: [id number] MTDD
[2019-07-28] MEDS ORDERED: Potassium Chlor TAB* 20 MEQ TAB.ER PO SCH (09:00)
[2019-07-28] MEDS ORDERED: Metoprolol Succinate XL TAB* 25 MG PO SCH (09:00)
[2019-07-28] MEDS ORDERED: Aspirin EC TAB* 81 MG TAB.EC PO SCH (09:00)
[2019-07-28] MEDS: Cholecalciferol TAB* 400 UNIT PO SCH (09:24)
[2019-07-28] MEDS: buPROPion SR TAB.SR* 150 MG PO SCH ×2 (09:26→21:30)
[2019-07-28] MEDS: Furosemide TAB* 40 MG PO SCH ×2 (09:27→21:30)
[2019-07-28] MEDS: Multivitamins/Minerals TAB PO SCH (09:27)
[2019-07-28] MEDS: Cetirizine* 10 MG TAB PO SCH (09:27)
[2019-07-28] MEDS: Ascorbic Acid TAB* 500 MG PO SCH ×2 (09:27→21:30)
[2019-07-28] MEDS: Dronedarone TAB* 400 MG PO SCH ×2 (09:28→21:30)
[2019-07-28] MEDS: Insulin LISPRO* 1 UNITS UNIT SUBCUT SCH ×4 (09:29→21:30)
[2019-07-28] MEDS ORDERED: Diltiazem IV push/loading dose 5 MG/ML 5 ML vial (25 mg) IV SLOW PU ONE (10:09)
[2019-07-28] MEDS: Potassium Chloride* LIQUID 20 MEQ/15 ML UDC PO SCH ×2 (10:17→21:40)
--- NOTE | 2019-07-28 10:54 | PN ---
Subjective Date of Service: 07/28/19 Interval History: Pt found to be in rapid aflutter with 2:1 conduction. Pt is asymptomatic normotensive, denies any chest pain, SOB, Dizziness. 10mg Cardizem given IVP with rapid correction of tachycardia. Pt is currently in a-flutter with 3:1 conduction. Pt remains without complaints. Family History: Unchanged from Admission Social History: Unchanged from Admission Past Medical History: Unchanged from Admission Objective Active Medications: Ascorbic Acid (Vitamin C Tab*) 500 mg PO BID [facility] Last Admin: 07/28/19 09:27 Dose: 500 mg Aspirin (Aspirin Ec Tab*) 81 mg PO DAILY [facility] Last Admin: 07/28/19 09:24 Dose: 81 mg Bupropion HCl (Wellbutrin Sr Tab*) 150 mg PO BID [facility] Last Admin: 07/28/19 09:26 Dose: 150 mg Cetirizine HCl (Zyrtec*) 10 mg PO QAM [facility] Last Admin: 07/28/19 09:27 Dose: 10 mg Cholecalciferol (Vitamin D Tab*) 400 unit PO DAILY [facility] Last Admin: 07/28/19 09:24 Dose: 400 unit Dextrose (D50w Syringe 50 Ml*) 12.5 gm IV PUSH .FOR FS < 60 - SS PRN PRN Reason: FS < 60 Diltiazem HCl (Cardizem Tab*) 30 mg PO DAILY [facility] Dronedarone (Multaq Tab*) 400 mg PO BID [facility] Last Admin: 07/28/19 09:28 Dose: 400 mg Furosemide (Lasix Tab*) 40 mg PO BID [facility] Last Admin: 07/28/19 09:27 Dose: 40 mg Insulin Human Lispro (Humalog*) 0 units SUBCUT ACHS [facility]; Protocol Last Admin: 07/28/19 09:29 Dose: 2 units Loperamide HCl (Imodium Cap*) 2 mg PO QID PRN PRN Reason: DIARRHEA Metoprolol Succinate (Toprol Xl Tab*) 50 mg PO BID [facility] Montelukast Sodium (Singulair Tab*) 10 mg PO BEDTIME [facility] Last Admin: 07/27/19 22:54 Dose: 10 mg Multivitamins/Minerals (Theragran/Minerals Tab*) 1 tab PO DAILY [facility] Last Admin: 07/28/19 09:27 Dose: 1 tab Potassium Chloride (Potassium Chloride Liquid) 20 meq PO BID [facility] Last Admin: 07/28/19 10:17 Dose: 20 meq Rivaroxaban (Xarelto(*)) 20 mg PO 1700 RADHIKA Rosuvastatin Calcium (Crestor (Nf)) 10 mg PO MO [facility]; Protocol Last Admin: 07/27/19 23:15 Dose: 10 mg Vital Signs - 8 hr 07/28/19 07/28/19 07/28/19 02:56 07:15 07:54 Temperature 97.5 F 98.2 F Pulse Rate 78 74 Respiratory 16 16 16 Rate Blood Pressure 101/78 91/57 (mmHg) O2 Sat by Pulse 98 96 Oximetry 07/28/19 07/28/19 08:15 10:20 Temperature Pulse Rate Respiratory Rate Blood Pressure 112/82 139/92 (mmHg) O2 Sat by Pulse Oximetry Oxygen Devices in Use Now: None Appearance: Elderly obese woman appears stated age, sitting up in chair using tablet device, does not appear to be in any distress or discomfort. Eyes: No Scleral Icterus, PERRLA Ears/Nose/Mouth/Throat: NL Teeth, Lips, Gums, Clear Oropharnyx, Mucous Membranes Moist Neck: NL Appearance and Movements; NL JVP Respiratory: Symmetrical Chest Expansion and Respiratory Effort, Clear to Auscultation Cardiovascular: - - Heart rate tachycardic. +2 edema in lower extremities. Pedal pulses present bilaterally Abdominal: NL Sounds; No Tenderness; No Distention, No Hepatosplenomegaly Lymphatic: No Cervical Adenopathy Extremities: - - +2 edema bilateral lower extrems pitting in ankles Skin: No Rash or Ulcers Neurological: Alert and Oriented x 3, NL Sensation, NL Gait, NL Muscle Strength and Tone Result Diagrams: 07/28/19 04:23 07/28/19 04:23 Assess/Plan/Problems-Billing Assessment: - Patient Problems (1) Paroxysmal atrial fibrillation Current Visit: Yes Comment: -Episode of rapid A-flutter at 150bpm. Pt responded well to 10mg Cardizem IVP. -Metoprolol dose increased to 50mg PO BID -Multaq 400mg BID -Xarelto (2) HTN (hypertension) Current Visit: No Comment: -Well controlled -Changed Metoprolol XL to 50mg PO BID per Dr. Velazquez instructions -Continue Furosemide (3) HLD (hyperlipidemia) Current Visit: No Comment: -Crestor as ordered (4) Type II diabetes mellitus Current Visit: No Comment: -BG levels are elevated -HgbA1c pending -Humalog ordered ACHS (5) SHILA (obstructive sleep apnea) Current Visit: No Comment: -Continue CPAP. (6) DVT prophylaxis Current Visit: No Comment: -Xarelto (7) Full code status Current Visit: Yes (8) H/O aortic valve replacement Current Visit: Yes Status: Acute Code(s): Z95.2 - PRESENCE OF PROSTHETIC HEART VALVE SNOMED Code(s): 2430463092780 Status and Disposition: Stable
[2019-07-28] MEDS: Diltiazem TAB* 30 MG PO SCH (12:22)
--- NOTE | 2019-07-28 16:02 | CONS ---
CC: Dr. Micheal Renteria; Dr. Jay Fish* CARDIOLOGY CONSULTATION DATE OF CONSULTATION: 07/28/2019. INDICATION FOR CONSULTATION: Atrial flutter. HISTORY OF PRESENT ILLNESS: The patient is a 73-year-old woman with a history of aortic valve replacement. She had initial aortic valve replacement in 2013. She had a repeat aortic valve replacement on 07/08/2019. At that time, she had a #21 aortic valve placement. The patient has been doing well after surgery, except for on July 17, she started noticing that her heart rate was elevated. The patient has a history of atrial fibrillation. She was on anticoagulation prior to her surgery. When she was discharged from the hospital, she was not placed on any coagulation, she was just placed on aspirin. Again, the patient noted the onset of her atrial fibrillation on the . The patient had called the office this weekend when I was petroleum production engineer, noting that her heart rate was elevated. At that time, I asked her to restart her Xarelto and to stop her aspirin. I also asked her to increase her Metoprolol. The patient came to the emergency room on 07/27/2019 because of elevated heart rate. She was admitted to the hospital because of her atrial fibrillation and rapid heart rate. She was also noted to have her potassium and magnesium levels low. These have been repleted. In speaking with the patient now, she actually feels fine. Her heart rate is 80. She has no shortness of breath. She has no chest pain. She has notice of palpitations. No lightheadedness, dizziness or syncope. PAST MEDICAL HISTORY: Significant for aortic valve replacement as noted above, diastolic heart failure, hypertension, diabetes, ITP, obstructive sleep apnea, lymphedema. PAST SURGICAL HISTORY: Aortic valve replacement. OUTPATIENT MEDICATIONS: 1. Wellbutrin 150 mg b.i.d. 2. Zyrtec 10 mg a day. 3. Glucophage 500 mg b.i.d. 4. Metoprolol 50 mg daily. 5. Crestor 10 mg a day. 6. Singulair. 7. Vitamin C. 8. Multaq 400 mg b.i.d. 9. Loperamide. 10. Potassium tablets. 11. Lasix 40 mg b.i.d. 12. Aspirin 81 mg a day which was stopped. 13. Xarelto 20 mg a day. ALLERGIES: AZITHROMYCIN, CIPROFLOXACIN, LISINOPRIL. FAMILY HISTORY: No family history of early coronary artery disease. SOCIAL HISTORY: She is retired. She lives with her . She denies tobacco or alcohol use. She tries to get daily exercise, but is limited by her knee. REVIEW OF SYSTEMS: Positive for palpitations, positive for shortness of breath , negative for fevers and chills, negative for changes in bowel or bladder, negative for changes in weight. Other 12 point review is unremarkable. PHYSICAL EXAM: On physical exam, height is 5'4", weight 229 pounds. Temperature 98.3, heart rate is 90, blood pressure 136/57, respiratory rate is 19, oxygen saturation is 99 percent on room air. HEENT: Sclerae anicteric. Oropharynx is pink without erythema. Neck: Carotids are 2+ without bruits. JVD is normal. Thyroid is normal. Cardiac: S1, S2, irregular. There is a 1/6 systolic ejection murmur heard best to the right upper sternal border. PMI is normal. Lungs: Clear to auscultation bilaterally. There is no dullness to percussion. Abdomen: Soft, nontender, nondistended with normoactive bowel sounds. Extremities: No edema. She has 2+ pulses throughout. Patient is awake , alert and oriented. She moves all four extremities equally. DIAGNOSTIC STUDIES/LAB DATA: CBC within normal limits. Chemistry: Potassium 3.2 which is being repleted, creatinine 1.06, AST and ALT are normal. EKG shows atrial flutter with 3:1 conduction at a heart rate of 80. IMPRESSION: This is a 73-year-old female with a history of aortic valve replacement, history of paroxysmal atrial arrhythmias who came to the hospital because of her tachycardia. She was found to be in atrial flutter with 2:1 conduction at a heart rate of 140. She is now on higher doses of beta sampson and her heart rate is down to 80 with 3:1 conduction. RECOMMENDATIONS: At this point, my recommendation is to keep her on a higher dose of beta sampson. The patient will be discharged on Toprol XL 50 mg b.i.d. She will stay on Xarelto. Her aspirin will be stopped. The patient is already on Multaq which she will continue. I did discuss the possibility of doing a transesophageal echocardiogram and a cardioversion on this patient. Because of the recent COVID-19 virus issue, the hospital would like to limit invasive procedures, particularly involving oral intubation. For now, my recommendation is to stay on rate control agents, stay on Multaq, and stay on anticoagulation. The patient will be seen by Dr. Fihs in two weeks. At that time, he can schedule a cardioversion after one month of anticoagulation. [id number]/[facility] #: [id number] MTDD
[2019-07-28] MEDS: Metoprolol Succinate XL TAB* 50 MG PO SCH (17:19)
[2019-07-28] MEDS: Rivaroxaban TAB(*) 20 MG TAB PO SCH (21:31)
[2019-07-28] MEDS: Montelukast Sodium TAB* 10 MG PO SCH (21:31)
[2019-07-29 08:43] LABS: ABS Basophils 0.1 10^3/ul (0-0.2); ABS Eosinophils 0.3 10^3/ul (0-0.6); ABS Lymphocytes 1.9 10^3/ul (1.0-4.8); ABS Monocytes 0.6 10^3/ul (0-0.8); ABS Neutrophils 4.3 10^3/ul (1.5-7.7); Eosinophil % 3.8 %; Hematocrit 36 % (35-47); Hemoglobin 12.5 g/dL (12.0-16.0); Lymphocyte % 26.1 %; Mean Corpuscular HGB Conc 35 g/dL (31-36); Mean Corpuscular Hemoglobin 31 pg (27-31); Mean Corpuscular Volume 90 fL (80-97); Mean Platelet Volume 8.4 fL (7.4-10.4); Platelet Count 50 10^3/uL (150-450); Red Blood Count 4.01 10^6 /uL (3.70-4.87); Red Cell Distribution Width 14 % (10-15); White Blood Count 7.2 10^3/uL (3.5-10.8)
[2019-07-29 08:56] LABS: BUN/Creatinine Ratio 23.8 (8-20); Calcium 9.1 mg/dL (8.6-10.3); EGFR Non-African American 51.2 (>60); Magnesium 1.7 mg/dL (1.9-2.7); Potassium 3.1 mmol/L (3.5-5.0)
[2019-07-29] MEDS ORDERED: KCL 20 MEQ/100 ML IVPREMIX* 20 MEQ/100 ML BAG IV SCH (09:00)
[2019-07-29] MEDS ORDERED: Magnesium Sulfate IV* 3 GM in NS 0.9% 100 ML* 100 ML IVPB ONE (09:00)
[2019-07-29] MEDS: Potassium Chloride* LIQUID 20 MEQ/15 ML UDC PO SCH (09:04)
[2019-07-29] MEDS: Dronedarone TAB* 400 MG PO SCH (09:04)
[2019-07-29] MEDS: Diltiazem TAB* 30 MG PO SCH (09:04)
[2019-07-29] MEDS: Ascorbic Acid TAB* 500 MG PO SCH ×2 (09:05→21:58)
[2019-07-29] MEDS: Metoprolol Succinate XL TAB* 50 MG PO SCH (09:05)
[2019-07-29] MEDS: Cetirizine* 10 MG TAB PO SCH (09:05)
[2019-07-29] MEDS: buPROPion SR TAB.SR* 150 MG PO SCH ×2 (09:05→21:58)
[2019-07-29] MEDS: Multivitamins/Minerals TAB PO SCH (09:05)
[2019-07-29] MEDS: Cholecalciferol TAB* 400 UNIT PO SCH (09:05)
[2019-07-29] MEDS: Furosemide TAB* 40 MG PO SCH (09:05)
[2019-07-29] MEDS: Insulin LISPRO* 1 UNITS UNIT SUBCUT SCH ×4 (09:08→21:59)
[2019-07-29] MEDS ORDERED: Potassium Chlor TAB* 20 MEQ TAB.ER PO ONE ×2 (09:26→14:00)
--- NOTE | 2019-07-29 09:40 | PN ---
Addendum entered and electronically signed by Jane Huang NP 07/29/19 10:11 : Subjective Interval History: Patient converted to NSR around 0800 today. She offers no complaints at this time. I spoke with Jessie Lopez MOSAIC TECHNICIAN with Dr. Encinas who states they stopped Xarelto post AVR to minimize bleeding risk. She did not have post op AFL during her stay there. Plts were stable, lowest plt count was 70,000. IN the past she followed Dr. Sanchez for ITP and tolerated Xarelto per patient. She denies sob, mcelroy, palpitations or chest pain. Medications Active Medications: Amiodarone HCl (Cordarone Tab*) 200 mg PO DAILY [facility] Ascorbic Acid (Vitamin C Tab*) 500 mg PO BID [facility] Last Admin: 07/29/19 09:05 Dose: 500 mg Bupropion HCl (Wellbutrin Sr Tab*) 150 mg PO BID [facility] Last Admin: 07/29/19 09:05 Dose: 150 mg Cetirizine HCl (Zyrtec*) 10 mg PO QAM [facility] Last Admin: 07/29/19 09:05 Dose: 10 mg Cholecalciferol (Vitamin D Tab*) 400 unit PO DAILY [facility] Last Admin: 07/29/19 09:05 Dose: 400 unit Dextrose (D50w Syringe 50 Ml*) 12.5 gm IV PUSH .FOR FS < 60 - SS PRN PRN Reason: FS < 60 Magnesium Sulfate 3 gm/ Sodium (Chloride) 106 mls @ 53 mls/hr IVPB ONCE ONE Stop: 07/29/19 10:59 Insulin Human Lispro (Humalog*) 0 units SUBCUT ACHS [facility]; Protocol Last Admin: 07/29/19 09:08 Dose: 2 units Loperamide HCl (Imodium Cap*) 2 mg PO QID PRN PRN Reason: DIARRHEA Metoprolol Succinate (Toprol Xl Tab*) 75 mg PO BID [facility] Montelukast Sodium (Singulair Tab*) 10 mg PO BEDTIME [facility] Last Admin: 07/28/19 21:31 Dose: 10 mg Multivitamins/Minerals (Theragran/Minerals Tab*) 1 tab PO DAILY [facility] Last Admin: 07/29/19 09:05 Dose: 1 tab Potassium Chloride (Klor Con Er Tab*) 40 meq PO ONCE ONE Stop: 03/25/20 14:01 Rivaroxaban (Xarelto(*)) 20 mg PO 1700 [facility] Last Admin: 07/28/19 21:31 Dose: 20 mg Rosuvastatin Calcium (Crestor (Nf)) 10 mg PO MOWE [facility]; Protocol Last Admin: 07/27/19 23:15 Dose: 10 mg Objective Vital Signs: Temp Pulse Resp BP Pulse Ox 97.5 F 86 16 130/78 99 07/29/19 07:15 07/29/19 07:15 07/29/19 07:15 07/29/19 08:39 07/29/19 07:15 Oxygen Devices in Use Now: None Appearance: sitting in chair, offers no complaints. A+O x3. Ears/Nose/Mouth/Throat: NL Teeth, Lips, Gums, Clear Oropharnyx, Mucous Membranes Moist Neck: NL Appearance and Movements; NL JVP, Trachea Midline Respiratory: Symmetrical Chest Expansion and Respiratory Effort, Clear to Auscultation Cardiovascular: - - Normal S1, S2 RRR. Grade 1/6 early systolic AV murmur, no gallop or rub. Extremities: - - trace pretibial edema noted bilaterally. Skin: No Rash or Ulcers, - - mid sternal surgical incision site intact, edges well approximated. No oozing, no inflamation. Neurological: Alert and Oriented x 3 Lines/Tubes/Other Access: Clean, Dry and Intact Peripheral IV Laboratory Results: 07/29/19 08:21 07/29/19 08:21 Total Bilirubin 0.60 mg/dL (0.2-1.0) 07/27/19 13:36 AST 13 U/L (13-39) 07/27/19 13:36 ALT 14 U/L (7-52) 07/27/19 13:36 Alkaline Phosphatase 100 U/L (34-104) 07/27/19 13:36 Total Protein 6.2 g/dL (6.4-8.9) L 07/27/19 13:36 Albumin 3.9 g/dL (3.2-5.2) 07/27/19 13:36 Globulin 2.3 g/dL (2-4) 07/27/19 13:36 Albumin/Globulin Ratio 1.7 (1-3) 07/27/19 13:36 EKG Data: Today's ECG pending. Telemetry; Sinus rhythm rate 70-80's. Patient converted from AFL around 0800 today. Assessment/Plan #1 Severe periprosthetic s/p redo AVR with 21mm Solomon Lomax Perimount Valve 2800 07/08/[address] Irizarry. I personally spoke with LEEANN Jessie Lopez with Dr. Irizarry's service line who states discontinuation of ASA was okay given patient is now on Xarelto for stroke prevention( Plts reduced on both agents). Sternotomy site appears intact. no evidence of inflammation. #2 h/o ITP; Follows Dr. Sanchez. Plts today 50,00 however she was on ASA and Xarelto therapy since this past weekend. In the past she tolerated Xarelto therapy per patient. Decision was made to stop ASA and continue with Xarelto. Would monitor Plts count closely . She denies bleeding episodes. #3 h/o PAF/AFL; Patient presented with AFL with RVR. She had hypomagnesium and hypokalemia. Per [facility] she did not have post op AF. Historically on Xarelto which was stopped by Dr. Irizarry's team to minimize bleed risk and was discharged home on ASA 325/day. Her Chads Vasc is 4( h/o HTN, gender, age and Type 2 DM). She is now on Xarelto 20mg/day. I stopped ASA today as noted above in #2. Keep K +>4, Mag>2. Will simplify medication regimen and stopped CCB therapy and optimize Toprol ( increased to 75 BID). Continue Multaq for now. #4h/o DHF; Appears compensated on exam. Patient reports bilateral lower extremity edema is actually better than baseline. I suspect Lasix 40 BID is etiology for electrolyte depletion. I have stopped it however, she will likely need to go back on it but at a lower dose prior to discharge. Mag and K+ ordered today. #5 Disposition pending course. Would monitor for one additional night. Update labs in am. I would like to monitor her response to AVN agent med changes. Will d/w Dr. bailon. Attending: Milli Bailon Addendum entered and electronically signed by Jane Huang NP 07/29/19 10:08 : Subjective Interval History: Patient converted to NSR around 0800 today. She offers no complaints at this time. I spoke with Jessie Lopez MOSAIC TECHNICIAN with Dr. Encinas who states they stopped Xarelto post AVR to minimize bleeding risk. She did not have post op AFL during her stay there. Plts were stable, lowest plt count was 70,000. IN the past she followed Dr. Sanchez for ITP and tolerated Xarelto per patient. She denies sob, mcelroy, palpitations or chest pain. Medications Active Medications: Amiodarone HCl (Cordarone Tab*) 200 mg PO DAILY [facility] Ascorbic Acid (Vitamin C Tab*) 500 mg PO BID [facility] Last Admin: 07/29/19 09:05 Dose: 500 mg Bupropion HCl (Wellbutrin Sr Tab*) 150 mg PO BID [facility] Last Admin: 07/29/19 09:05 Dose: 150 mg Cetirizine HCl (Zyrtec*) 10 mg PO QAM [facility] Last Admin: 07/29/19 09:05 Dose: 10 mg Cholecalciferol (Vitamin D Tab*) 400 unit PO DAILY [facility] Last Admin: 07/29/19 09:05 Dose: 400 unit Dextrose (D50w Syringe 50 Ml*) 12.5 gm IV PUSH .FOR FS < 60 - SS PRN PRN Reason: FS < 60 Magnesium Sulfate 3 gm/ Sodium (Chloride) 106 mls @ 53 mls/hr IVPB ONCE ONE Stop: 07/29/19 10:59 Insulin Human Lispro (Humalog*) 0 units SUBCUT ACHS [facility]; Protocol Last Admin: 07/29/19 09:08 Dose: 2 units Loperamide HCl (Imodium Cap*) 2 mg PO QID PRN PRN Reason: DIARRHEA Metoprolol Succinate (Toprol Xl Tab*) 75 mg PO BID [facility] Montelukast Sodium (Singulair Tab*) 10 mg PO BEDTIME [facility] Last Admin: 07/28/19 21:31 Dose: 10 mg Multivitamins/Minerals (Theragran/Minerals Tab*) 1 tab PO DAILY [facility] Last Admin: 07/29/19 09:05 Dose: 1 tab Potassium Chloride (Klor Con Er Tab*) 40 meq PO ONCE ONE Stop: 07/29/19 14:01 Rivaroxaban (Xarelto(*)) 20 mg PO 1700 [facility] Last Admin: 07/28/19 21:31 Dose: 20 mg Rosuvastatin Calcium (Crestor (Nf)) 10 mg PO MOWEFR [facility]; Protocol Last Admin: 07/27/19 23:15 Dose: 10 mg Objective Vital Signs: Temp Pulse Resp BP Pulse Ox 97.5 F 86 16 130/78 99 07/29/19 07:15 07/29/19 07:15 07/29/19 07:15 07/29/19 08:39 07/29/19 07:15 Oxygen Devices in Use Now: None Appearance: sitting in chair, offers no complaints. A+O x3. Ears/Nose/Mouth/Throat: NL Teeth, Lips, Gums, Clear Oropharnyx, Mucous Membranes Moist Neck: NL Appearance and Movements; NL JVP, Trachea Midline Respiratory: Symmetrical Chest Expansion and Respiratory Effort, Clear to Auscultation Cardiovascular: - - Normal S1, S2 RRR. Grade 1/6 early systolic AV murmur, no gallop or rub. Extremities: - - trace pretibial edema noted bilaterally. Skin: No Rash or Ulcers, - - mid sternal surgical incision site intact, edges well approximated. No oozing, no inflamation. Neurological: Alert and Oriented x 3 Lines/Tubes/Other Access: Clean, Dry and Intact Peripheral IV Laboratory Results: 07/29/19 08:21 07/29/19 08:21 Total Bilirubin 0.60 mg/dL (0.2-1.0) 07/27/19 13:36 AST 13 U/L (13-39) 07/27/19 13:36 ALT 14 U/L (7-52) 07/27/19 13:36 Alkaline Phosphatase 100 U/L (34-104) 07/27/19 13:36 Total Protein 6.2 g/dL (6.4-8.9) L 07/27/19 13:36 Albumin 3.9 g/dL (3.2-5.2) 07/27/19 13:36 Globulin 2.3 g/dL (2-4) 07/27/19 13:36 Albumin/Globulin Ratio 1.7 (1-3) 07/27/19 13:36 EKG Data: Today's ECG pending. Telemetry; Sinus rhythm rate 70-80's. Patient converted from AFL around 0800 today. Assessment/Plan #1 Severe periprosthetic s/p redo AVR with 21mm Solomon Lomax Perimount Valve 2800 07/08/[address] Irizarry. I personally spoke with LEEANN Jessie Lopez with Dr. Irizarry's service line who states discontinuation of ASA was okay given patient is now on Xarelto for stroke prevention( Plts reduced on both agents). Sternotomy site appears intact. no evidence of inflammation. #2 h/o ITP; Follows Dr. Sanchez. Plts today 50,00 however she was on ASA and Xarelto therapy since this past weekend. In the past she tolerated Xarelto therapy per patient. Decision was made to stop ASA and continue with Xarelto. Would monitor Plts count closely . She denies bleeding episodes. #3 h/o PAF/AFL; Patient presented with AFL with RVR. She had hypomagnesium and hypokalemia. Per [facility] she did not have post op AF. Historically on Xarelto which was stopped by Dr. Irizarry's team to minimize bleed risk and was discharged home on ASA 325/day. Her Chads Vasc is 4( h/o HTN, gender, age and Type 2 DM). She is now on Xarelto 20mg/day. I stopped ASA today as noted above in #2. Keep K +>4, Mag>2. Will simplify medication regimen and stopped CCB therapy and optimize Toprol ( increased to 75 BID). Continue Multaq for now. #4h/o DHF; Appears compensated on exam. Patient reports bilateral lower extremity edema is actually better than baseline. I suspect Lasix 40 BID is etiology for electrolyte depletion. I have stopped it however, she will likely need to go back on it but at a lower dose prior to discharge. Mag and K+ ordered today. #5 Disposition pending course. Would monitor for one additional night. Update labs in am. I would like to monitor her response to AVN agent med changes. Will d/w Dr. bailon. Attending: Milli Bailon Original Note: <Jane Huang - Last Filed: 07/29/19 10:11> Subjective Date of Service: 07/29/19 - PAFL with RVR Interval History: Patient converted to NSR around 0800 today. She offers no complaints at this time. I spoke with Jessie Lopez MOSAIC TECHNICIAN with Dr. Encinas who states they stopped Xarelto post AVR to minimize bleeding risk. She did not have post op AFL during her stay there. Plts were stable, lowest plt count was 70,000. IN the past she followed Dr. Sanchez for ITP and tolerated Xarelto per patient. She denies sob, mcelroy, palpitations or chest pain. Medications Active Medications: Ascorbic Acid (Vitamin C Tab*) 500 mg PO BID [facility] Last Admin: 07/28/19 21:30 Dose: 500 mg Bupropion HCl (Wellbutrin Sr Tab*) 150 mg PO BID [facility] Last Admin: 07/28/19 21:30 Dose: 150 mg Cetirizine HCl (Zyrtec*) 10 mg PO QAM [facility] Last Admin: 07/28/19 09:27 Dose: 10 mg Cholecalciferol (Vitamin D Tab*) 400 unit PO DAILY [facility] Last Admin: 07/28/19 09:24 Dose: 400 unit Dextrose (D50w Syringe 50 Ml*) 12.5 gm IV PUSH .FOR FS < 60 - SS PRN PRN Reason: FS < 60 Dronedarone (Multaq Tab*) 400 mg PO BID [facility] Last Admin: 07/28/19 21:30 Dose: 400 mg Magnesium Sulfate 3 gm/ Sodium (Chloride) 106 mls @ 53 mls/hr IVPB ONCE ONE Stop: 07/29/19 10:59 Insulin Human Lispro (Humalog*) 0 units SUBCUT [facility]; Protocol Last Admin: 07/28/19 21:30 Dose: 2 units Loperamide HCl (Imodium Cap*) 2 mg PO QID PRN PRN Reason: DIARRHEA Metoprolol Succinate (Toprol Xl Tab*) 75 mg PO BID [facility] Montelukast Sodium (Singulair Tab*) 10 mg PO BEDTIME [facility] Last Admin: 07/28/19 21:31 Dose: 10 mg Multivitamins/Minerals (Theragran/Minerals Tab*) 1 tab PO DAILY [facility] Last Admin: 07/28/19 09:27 Dose: 1 tab Potassium Chloride (Klor Con Er Tab*) 40 meq PO ONCE ONE Stop: 07/29/19 09:27 Potassium Chloride (Klor Con Er Tab*) 40 meq PO ONCE ONE Stop: 07/29/19 14:01 Rivaroxaban (Xarelto(*)) 20 mg PO 1700 [facility] Last Admin: 07/28/19 21:31 Dose: 20 mg Rosuvastatin Calcium (Crestor (Nf)) 10 mg PO MOWEFR [facility]; Protocol Last Admin: 07/27/19 23:15 Dose: 10 mg Objective Vital Signs: Temp Pulse Resp BP Pulse Ox 97.5 F 86 16 130/78 99 07/29/19 07:15 07/29/19 07:15 07/29/19 07:15 07/29/19 08:39 07/29/19 07:15 Oxygen Devices in Use Now: None Appearance: sitting in chair, offers no complaints. A+O x3. Ears/Nose/Mouth/Throat: NL Teeth, Lips, Gums, Clear Oropharnyx, Mucous Membranes Moist Neck: NL Appearance and Movements; NL JVP, Trachea Midline Respiratory: Symmetrical Chest Expansion and Respiratory Effort, Clear to Auscultation Cardiovascular: - - Normal S1, S2 RRR. Grade 1/6 early systolic AV murmur, no gallop or rub. Extremities: - - trace pretibial edema noted bilaterally. Skin: No Rash or Ulcers, - - mid sternal surgical incision site intact, edges well approximated. No oozing, no inflamation. Neurological: Alert and Oriented x 3 Lines/Tubes/Other Access: Clean, Dry and Intact Peripheral IV Laboratory Results: 07/29/19 08:21 07/29/19 08:21 Total Bilirubin 0.60 mg/dL (0.2-1.0) 07/27/19 13:36 AST 13 U/L (13-39) 07/27/19 13:36 ALT 14 U/L (7-52) 07/27/19 13:36 Alkaline Phosphatase 100 U/L (34-104) 07/27/19 13:36 Total Protein 6.2 g/dL (6.4-8.9) L 07/27/19 13:36 Albumin 3.9 g/dL (3.2-5.2) 07/27/19 13:36 Globulin 2.3 g/dL (2-4) 07/27/19 13:36 Albumin/Globulin Ratio 1.7 (1-3) 07/27/19 13:36 Laboratory Results - last 24 hr 07/28/19 07/28/19 07/28/19 04:23 11:47 16:56 WBC RBC Hgb Hct MCV MCH MCHC RDW Plt Count MPV Neut % (Auto) Lymph % (Auto) Luna % (Auto) Eos % (Auto) Baso % (Auto) Absolute Neuts (auto) Absolute Lymphs (auto) Absolute Monos (auto) Absolute Eos (auto) Absolute Basos (auto) Absolute Nucleated RBC Nucleated RBC % Sodium Potassium Chloride Carbon Dioxide Anion Gap BUN Creatinine Est GFR ( Amer) Est GFR (Non-Af Amer) BUN/Creatinine Ratio Glucose POC Glucose (mg/dL) 167 H 182 H Hemoglobin A1c 6.0 H Calcium Magnesium 07/28/19 07/29/19 07/29/19 21:16 07:43 08:21 WBC 7.2 RBC 4.01 Hgb 12.5 Hct 36 MCV 90 MCH 31 MCHC 35 RDW 14 Plt Count 50 L MPV 8.4 Neut % (Auto) 60.4 Lymph % (Auto) 26.1 Luna % (Auto) 8.9 Eos % (Auto) 3.8 Baso % (Auto) 0.8 Absolute Neuts (auto) 4.3 Absolute Lymphs (auto) 1.9 Absolute Monos (auto) 0.6 Absolute Eos (auto) 0.3 Absolute Basos (auto) 0.1 Absolute Nucleated RBC 0.0 Nucleated RBC % 0.0 Sodium Potassium Chloride Carbon Dioxide Anion Gap BUN Creatinine Est GFR ( Amer) Est GFR (Non-Af Amer) BUN/Creatinine Ratio Glucose POC Glucose (mg/dL) 151 H 153 H Hemoglobin A1c Calcium Magnesium 07/29/19 08:21 WBC RBC Hgb Hct MCV MCH MCHC RDW Plt Count MPV Neut % (Auto) Lymph % (Auto) Luna % (Auto) Eos % (Auto) Baso % (Auto) Absolute Neuts (auto) Absolute Lymphs (auto) Absolute Monos (auto) Absolute Eos (auto) Absolute Basos (auto) Absolute Nucleated RBC Nucleated RBC % Sodium 137 Potassium 3.1 L Chloride 101 Carbon Dioxide 27 Anion Gap 9 BUN 25 H Creatinine 1.05 H Est GFR ( Amer) 62.0 Est GFR (Non-Af Amer) 51.2 BUN/Creatinine Ratio 23.8 H Glucose 155 H POC Glucose (mg/dL) Hemoglobin A1c Calcium 9.1 Magnesium 1.7 L EKG Data: Today's ECG pending. Telemetry; Sinus rhythm rate 70-80's. Patient converted from AFL around 0800 today. Assessment/Plan #1 Severe periprosthetic s/p redo AVR with 21mm [employer] Tr[employer]ecta pericardial tissue valve 07/08/[address] Irizarry. I personally spoke with LEEANN Jessie Lopez with Dr. Irizarry's service line who states discontinuation of ASA was okay given patient is now on Xarelto for stroke prevention( Plts reduced on both agents). Sternotomy site appears intact. no evidence of inflammation. #2 h/o ITP; Follows Dr. Sanchez. Plts today 50,00 however she was on ASA and Xarelto therapy since this past weekend. In the past she tolerated Xarelto therapy per patient. Decision was made to stop ASA and continue with Xarelto. Would monitor Plts count closely . She denies bleeding episodes. #3 h/o PAF/AFL; Patient presented with AFL with RVR. She had hypomagnesium and hypokalemia. Per [facility] she did not have post op AF. Historically on Xarelto which was stopped by Dr. Irizarry's team to minimize bleed risk and was discharged home on ASA 325/day. Her Chads Vasc is 4( h/o HTN, gender, age and Type 2 DM). She is now on Xarelto 20mg/day. I stopped ASA today as noted above in #2. Keep K +>4, Mag>2. Will simplify medication regimen and stopped CCB therapy and optimize Toprol ( increased to 75 BID). Continue Multaq for now. #4h/o DHF; Appears compensated on exam. Patient reports bilateral lower extremity edema is actually better than baseline. I suspect Lasix 40 BID is etiology for electrolyte depletion. I have stopped it however, she will likely need to go back on it but at a lower dose prior to discharge. Mag and K+ ordered today. #5 Disposition pending course. Would monitor for one additional night. Update labs in am. I would like to monitor her response to AVN agent med changes. Will d/w Dr. bailon. Attending: Milli Bailon <Milli Bailon - Last Filed: 07/29/19 14:50> Medications Active Medications: Amiodarone HCl (Cordarone Tab*) 200 mg PO DAILY [facility] Last Admin: 07/29/19 10:17 Dose: 200 mg Ascorbic Acid (Vitamin C Tab*) 500 mg PO BID [facility] Last Admin: 07/29/19 09:05 Dose: 500 mg Bupropion HCl (Wellbutrin Sr Tab*) 150 mg PO BID [facility] Last Admin: 07/29/19 09:05 Dose: 150 mg Cetirizine HCl (Zyrtec*) 10 mg PO QAM [facility] Last Admin: 07/29/19 09:05 Dose: 10 mg Cholecalciferol (Vitamin D Tab*) 400 unit PO DAILY [facility] Last Admin: 07/29/19 09:05 Dose: 400 unit Dextrose (D50w Syringe 50 Ml*) 12.5 gm IV PUSH .FOR FS < 60 - SS PRN PRN Reason: FS < 60 Insulin Human Lispro (Humalog*) 0 units SUBCUT ACHS [facility]; Protocol Last Admin: 07/29/19 12:25 Dose: 1 units Loperamide HCl (Imodium Cap*) 2 mg PO QID PRN PRN Reason: DIARRHEA Metoprolol Succinate (Toprol Xl Tab*) 75 mg PO BID [facility] Last Admin: 07/29/19 10:18 Dose: 75 mg Montelukast Sodium (Singulair Tab*) 10 mg PO BEDTIME [facility] Last Admin: 07/28/19 21:31 Dose: 10 mg Multivitamins/Minerals (Theragran/Minerals Tab*) 1 tab PO DAILY [facility] Last Admin: 07/29/19 09:05 Dose: 1 tab Rivaroxaban (Xarelto(*)) 20 mg PO 1700 [facility] Last Admin: 07/28/19 21:31 Dose: 20 mg Rosuvastatin Calcium (Crestor (Nf)) 10 mg PO MOWEFR [facility]; Protocol Last Admin: 07/27/19 23:15 Dose: 10 mg Objective Vital Signs: Temp Pulse Resp BP Pulse Ox 96.7 F 81 18 128/78 99 07/29/19 11:15 07/29/19 11:15 07/29/19 11:15 07/29/19 11:15 07/29/19 11:15 Laboratory Results: 07/29/19 08:21 07/29/19 08:21 Total Bilirubin 0.60 mg/dL (0.2-1.0) 07/27/19 13:36 AST 13 U/L (13-39) 07/27/19 13:36 ALT 14 U/L (7-52) 07/27/19 13:36 Alkaline Phosphatase 100 U/L (34-104) 07/27/19 13:36 Total Protein 6.2 g/dL (6.4-8.9) L 07/27/19 13:36 Albumin 3.9 g/dL (3.2-5.2) 07/27/19 13:36 Globulin 2.3 g/dL (2-4) 07/27/19 13:36 Albumin/Globulin Ratio 1.7 (1-3) 07/27/19 13:36 Assessment/Plan The patient was seen and examined by me personally. Now feeling back to normal w/conversion by patient to NSR. Denies SOB, orthopnea, incisional pain, and LE edema improving. Obese, sitting, NAD. Clear lungs, trace SM LUSB, none RUSB, no rub, LE very thick mild-mod pitting edema. Agree with above: AFB: Need to keep electrlytes as above. Short term, 3 months approx. use amiodarone instead of Multaq as stronger, her post op risk of PAF higher 3 months post AVR. I discussed the risk/benefit of amiodarone, she is aware of side effects.
[2019-07-29] MEDS: Amiodarone TAB* 200 MG PO SCH (10:17)
[2019-07-29] MEDS: Metoprolol Succinate XL TAB* 25 MG PO SCH ×2 (10:18→21:57)
[2019-07-29] MEDS ORDERED: Dexamethasone IV* 4 MG/ML 5 ML VIAL (20 MG) ONE (12:00)
--- NOTE | 2019-07-29 12:16 | PN ---
Subjective Date of Service: 07/29/19 Interval History: Pt reports that she is feeling very well and would like to be discharged. Pt informed that cardiology would be consulted. Pt denies any chest pain, SOB, dizziness. Also, denies feeling any palpitations since yesterday. Pt also informed that due to thrombocytopenia her discharge would likely be delayed. Family History: Unchanged from Admission Social History: Unchanged from Admission Past Medical History: Unchanged from Admission Objective Active Medications: Amiodarone HCl (Cordarone Tab*) 200 mg PO DAILY [facility] Last Admin: 07/29/19 10:17 Dose: 200 mg Ascorbic Acid (Vitamin C Tab*) 500 mg PO BID [facility] Last Admin: 07/29/19 09:05 Dose: 500 mg Bupropion HCl (Wellbutrin Sr Tab*) 150 mg PO BID [facility] Last Admin: 07/29/19 09:05 Dose: 150 mg Cetirizine HCl (Zyrtec*) 10 mg PO QAM [facility] Last Admin: 07/29/19 09:05 Dose: 10 mg Cholecalciferol (Vitamin D Tab*) 400 unit PO DAILY [facility] Last Admin: 07/29/19 09:05 Dose: 400 unit Dextrose (D50w Syringe 50 Ml*) 12.5 gm IV PUSH .FOR FS < 60 - SS PRN PRN Reason: FS < 60 Insulin Human Lispro (Humalog*) 0 units SUBCUT [facility]; Protocol Last Admin: 07/29/19 09:08 Dose: 2 units Loperamide HCl (Imodium Cap*) 2 mg PO QID PRN PRN Reason: DIARRHEA Metoprolol Succinate (Toprol Xl Tab*) 75 mg PO BID [facility] Last Admin: 07/29/19 10:18 Dose: 75 mg Montelukast Sodium (Singulair Tab*) 10 mg PO BEDTIME [facility] Last Admin: 07/28/19 21:31 Dose: 10 mg Multivitamins/Minerals (Theragran/Minerals Tab*) 1 tab PO DAILY [facility] Last Admin: 07/29/19 09:05 Dose: 1 tab Potassium Chloride (Klor Con Er Tab*) 40 meq PO ONCE ONE Stop: 07/29/19 14:01 Rivaroxaban (Xarelto(*)) 20 mg PO 1700 [facility] Last Admin: 07/28/19 21:31 Dose: 20 mg Rosuvastatin Calcium (Crestor (Nf)) 10 mg PO MOWEFR [facility]; Protocol Last Admin: 07/27/19 23:15 Dose: 10 mg Vital Signs - 8 hr 07/29/19 07/29/19 07/29/19 07:15 08:00 08:39 Temperature 97.5 F Pulse Rate 86 Respiratory 16 18 Rate Blood Pressure 122/46 130/78 (mmHg) O2 Sat by Pulse 99 Oximetry 07/29/19 11:15 Temperature 96.7 F Pulse Rate 81 Respiratory 18 Rate Blood Pressure 128/78 (mmHg) O2 Sat by Pulse 99 Oximetry Oxygen Devices in Use Now: None Appearance: Obese elderly woman sitting up in chair reading. Does not appear to be in any distress. Eyes: No Scleral Icterus, PERRLA Ears/Nose/Mouth/Throat: NL Teeth, Lips, Gums, Clear Oropharnyx, Mucous Membranes Moist Neck: NL Appearance and Movements; NL JVP, Trachea Midline, No Thyroid Enlargement, Masses Respiratory: Symmetrical Chest Expansion and Respiratory Effort, Clear to Auscultation Cardiovascular: NL Sounds; No Murmurs; No JVD, RRR, - - +1 pitting edema bilateral lower extrems Abdominal: NL Sounds; No Tenderness; No Distention Lymphatic: No Cervical Adenopathy Skin: No Rash or Ulcers, No Nodules or Sclerosis Neurological: Alert and Oriented x 3, NL Sensation, NL Gait, NL Muscle Strength and Tone Nutrition: Taking PO's Result Diagrams: 07/30/19 05:49 07/30/19 05:49 Assess/Plan/Problems-Billing Assessment: 73 yo female patient with history of Paroxysmal A-fib, SAVR, ITP, HTN, Sarcoidosis has presented for C/O palpitations - Patient Problems (1) Paroxysmal atrial fibrillation Current Visit: Yes Comment: -Cardizem stopped by Cardiology -Metoprolol dose increased to 75mg PO BID -Multaq stopped and Amiodarone 200mg PO added to regimen -Xarelto -Aspirin stopped (2) Idiopathic thrombocytopenia purpura Current Visit: Yes Comment: -Plt have been decreasing daily. Currently at 50. Spoke with cardiology [employer], she has concern that aspirin and xarelto combo is causing issue. Aspirin has been stopped and will review CBC in AM. -Hem/Oc will be starting decadron and see pt in consult. Will call Dr. Sanchez regarding dexamethasone IV in office saturday and saturday. -Pt is without evidence of bleeding (3) H/O aortic valve replacement Current Visit: Yes Comment: -Revision of SAVR at [facility] 07/08/2019 -Xarelto for anticoagulation -Pt does not not tolerate aspirin as pt becomes thrombocytopenic (4) HTN (hypertension) Current Visit: No Comment: -Well controlled -Changed Metoprolol XL to 50mg PO BID per Dr. Velazquez instructions -Continue Furosemide (5) HLD (hyperlipidemia) Current Visit: No Comment: -Crestor as ordered (6) Type II diabetes mellitus Current Visit: No Comment: -BG levels are elevated -HgbA1c - 6.0 -Humalog ordered ACHS (7) SHILA (obstructive sleep apnea) Current Visit: No Comment: -Continue CPAP. (8) DVT prophylaxis Current Visit: No Comment: -Xarelto (9) Full code status Current Visit: Yes Status and Disposition: Stable
--- NOTE | 2019-07-29 16:52 | PN ---
Progress Note - Progress Note Date of Service: 07/29/19 SOAP: Subjective: Patient well known to my service with long standing refractory ITP, currently off treatment, now sp open heart surgery for AVR, with recurrent afib/flutter, on aspirin (as recently as today) and xeralto 20mg with platelets of 50k. Heather was last seen in our office on 06/08 at which time her platelets were in the 70k range and she was planning on TAVR. She was recommended to start n-plate as she had failed rituxan and is only responsive to steroids over short periods of time (and feels poorly on it). She reports that she spoke with her surgeon who did not feel the platelets would be an issue and she and her decided that they did not like the side effect profile of n-plate. She underwent open heart surgery and synthetic aortic valve replacement on 07/07. She does not know what her platelet count was, but by cardiology documentation here her dina was in the 70s. They discontinued her xeralto and had her on single agent aspirin. She was admitted here 3 days ago with afib/flutter. Since admission she has returned to sinus rhythm and was started back on her xeralto 20 mg today as well as holding of her aspirin. Objective: Vital Signs Temp Pulse Resp BP Pulse Ox 97.4 F 84 20 133/68 99 07/29/19 15:15 07/29/19 15:15 07/29/19 15:15 07/29/19 15:15 07/29/19 15:15 sittin up in nad perr eomi op moist cta bl s1 s2 nl well healing sterotomy scar soft obese nt trace edema a+O x 3 ,nonfocal neurological exam Laboratory Results - last 24 hr 07/28/19 07/28/19 07/29/19 16:56 21:16 07:43 WBC RBC Hgb Hct MCV MCH MCHC RDW Plt Count MPV Neut % (Auto) Lymph % (Auto) [place] % (Auto) Eos % (Auto) Baso % (Auto) Absolute Neuts (auto) Absolute Lymphs (auto) Absolute Monos (auto) Absolute Eos (auto) Absolute Basos (auto) Absolute Nucleated RBC Nucleated RBC % Sodium Potassium Chloride Carbon Dioxide Anion Gap BUN Creatinine Est GFR ( Amer) Est GFR (Non-Af Amer) BUN/Creatinine Ratio Glucose POC Glucose (mg/dL) 182 H 151 H 153 H Calcium Magnesium 07/29/19 07/29/19 07/29/19 08:21 08:21 11:35 WBC 7.2 RBC 4.01 Hgb 12.5 Hct 36 MCV 90 MCH 31 MCHC 35 RDW 14 Plt Count 50 L MPV 8.4 Neut % (Auto) 60.4 Lymph % (Auto) 26.1 [place] % (Auto) 8.9 Eos % (Auto) 3.8 Baso % (Auto) 0.8 Absolute Neuts (auto) 4.3 Absolute Lymphs (auto) 1.9 Absolute Monos (auto) 0.6 Absolute Eos (auto) 0.3 Absolute Basos (auto) 0.1 Absolute Nucleated RBC 0.0 Nucleated RBC % 0.0 Sodium 137 Potassium 3.1 L Chloride 101 Carbon Dioxide 27 Anion Gap 9 BUN 25 H Creatinine 1.05 H Est GFR ( Amer) 62.0 Est GFR (Non-Af Amer) 51.2 BUN/Creatinine Ratio 23.8 H Glucose 155 H POC Glucose (mg/dL) 135 H Calcium 9.1 Magnesium 1.7 L 07/29/19 16:27 WBC RBC Hgb Hct MCV MCH MCHC RDW Plt Count MPV Neut % (Auto) Lymph % (Auto) [facility] % (Auto) Eos % (Auto) Baso % (Auto) Absolute Neuts (auto) Absolute Lymphs (auto) Absolute Monos (auto) Absolute Eos (auto) Absolute Basos (auto) Absolute Nucleated RBC Nucleated RBC % Sodium Potassium Chloride Carbon Dioxide Anion Gap BUN Creatinine Est GFR ( Amer) Est GFR (Non-Af Amer) BUN/Creatinine Ratio Glucose POC Glucose (mg/dL) 272 H Calcium Magnesium Amiodarone HCl (Cordarone Tab*) 200 mg PO DAILY [facility] Last Admin: 07/29/19 10:17 Dose: 200 mg Ascorbic Acid (Vitamin C Tab*) 500 mg PO BID [facility] Last Admin: 07/29/19 09:05 Dose: 500 mg Bupropion HCl (Wellbutrin Sr Tab*) 150 mg PO BID [facility] Last Admin: 07/29/19 09:05 Dose: 150 mg Cetirizine HCl (Zyrtec*) 10 mg PO QAM [facility] Last Admin: 07/29/19 09:05 Dose: 10 mg Cholecalciferol (Vitamin D Tab*) 400 unit PO DAILY [facility] Last Admin: 07/29/19 09:05 Dose: 400 unit Dextrose (D50w Syringe 50 Ml*) 12.5 gm IV PUSH .FOR FS < 60 - SS PRN PRN Reason: FS < 60 Insulin Human Lispro (Humalog*) 0 units SUBCUT ACHS [facility]; Protocol Last Admin: 07/29/19 12:25 Dose: 1 units Loperamide HCl (Imodium Cap*) 2 mg PO QID PRN PRN Reason: DIARRHEA Metoprolol Succinate (Toprol Xl Tab*) 75 mg PO BID [facility] Last Admin: 07/29/19 10:18 Dose: 75 mg Montelukast Sodium (Singulair Tab*) 10 mg PO BEDTIME [facility] Last Admin: 07/28/19 21:31 Dose: 10 mg Multivitamins/Minerals (Theragran/Minerals Tab*) 1 tab PO DAILY [facility] Last Admin: 07/29/19 09:05 Dose: 1 tab Rivaroxaban (Xarelto(*)) 20 mg PO 1700 [facility] Last Admin: 07/28/19 21:31 Dose: 20 mg Rosuvastatin Calcium (Crestor (Nf)) 10 mg PO MOWEFR [facility]; Protocol Last Admin: 07/27/19 23:15 Dose: 10 mg Assessment: 73 yo F w chronic ITP with short responses to steroids, refractory to rituxan, now with progressive thrombocytopenia on Xeralto. I am concerned that her bleeding risk is increased with platelets at this level on full dose anticoagulation. I have recommended 4 days of IV dexamethasone 40 mg to get her platelets up faster, though discussed again with [place] that this is a temporary measure. I have asked her to reconsider either n-plate or promacta, with a goal platelet count of >75k if on xeralto (which it does seem that she needs). She would like to have time to think about this and will NOT make the decision while inpatient. Should she be stable for discharge in the next day or two please call our office to arrange IV dex saturday and saturday, and then follow up with me on Saturday with labs. If her platelets continue to fall would have low threshold to d/c or decrease the dose of xeralto. I did page cardiology to review these recommendations but was unable to connect.
[2019-07-29] MEDS: Rivaroxaban TAB(*) 20 MG TAB PO SCH (17:15)
[2019-07-29] MEDS ORDERED: Metoprolol Succinate XL TAB* 50 MG PO SCH (21:00)
[2019-07-29] MEDS: Montelukast Sodium TAB* 10 MG PO SCH (21:57)
[2019-07-29] MEDS: CMCS: Rosuvastatin (NF) 10 MG TAB PO SCH (22:02)
[2019-07-30 06:22] LABS: ABS Lymphocytes 0.6 10^3/ul (1.0-4.8); ABS Monocytes 0.1 10^3/ul (0-0.8); ABS Neutrophils 10.6 10^3/ul (1.5-7.7); Eosinophil % 0.1 %; Hematocrit 34 % (35-47); Hemoglobin 11.7 g/dL (12.0-16.0); Lymphocyte % 5.7 %; Mean Corpuscular HGB Conc 35 g/dL (31-36); Mean Corpuscular Hemoglobin 31 pg (27-31); Mean Corpuscular Volume 89 fL (80-97); Mean Platelet Volume 8.6 fL (7.4-10.4); Nucleated Red Blood Cells % 0.1; Platelet Count 67 10^3/uL (150-450); Red Blood Count 3.78 10^6 /uL (3.70-4.87); Red Cell Distribution Width 14 % (10-15); White Blood Count 11.4 10^3/uL (3.5-10.8)
[2019-07-30 06:31] LABS: BUN/Creatinine Ratio 29.3 (8-20); Calcium 9.3 mg/dL (8.6-10.3); EGFR African American 82.5 (>60); EGFR Non-African American 68.1 (>60); Potassium 4.3 mmol/L (3.5-5.0)
[2019-07-30] MEDS: Insulin LISPRO* 1 UNITS UNIT SUBCUT SCH ×2 (08:32→12:02)
[2019-07-30] MEDS: Ascorbic Acid TAB* 500 MG PO SCH (08:33)
[2019-07-30] MEDS: Cholecalciferol TAB* 400 UNIT PO SCH (08:33)
[2019-07-30] MEDS: Multivitamins/Minerals TAB PO SCH (08:33)
[2019-07-30] MEDS: buPROPion SR TAB.SR* 150 MG PO SCH (08:33)
[2019-07-30] MEDS: Metoprolol Succinate XL TAB* 25 MG PO SCH (08:33)
[2019-07-30] MEDS: Cetirizine* 10 MG TAB PO SCH (08:33)
[2019-07-30] MEDS: Amiodarone TAB* 200 MG PO SCH (08:33)
--- NOTE | 2019-07-30 08:37 | PN ---
Progress Note - Progress Note Date of Service: 07/30/19 SOAP: Subjective: Denies Bleeding Day+2 IV Dex today Concerned about impact on blood glucose Thinking about options as reviewed by dr Sanchez Platelets 67 with leukocytosis developing Objective: Alert and conversant No bleeding evident Small bruising left fingers Neuro grossly nonfocal Vital Signs - 8 hr 07/30/19 03:15 Temperature 97.1 F Pulse Rate 79 Respiratory 18 Rate Blood Pressure 129/69 (mmHg) O2 Sat by Pulse 99 Oximetry Laboratory Results - last 24 hr 07/29/19 07/29/19 07/29/19 08:21 08:21 11:35 WBC 7.2 RBC 4.01 Hgb 12.5 Hct 36 MCV 90 MCH 31 MCHC 35 RDW 14 Plt Count 50 L MPV 8.4 Neut % (Auto) 60.4 Lymph % (Auto) 26.1 [place] % (Auto) 8.9 Eos % (Auto) 3.8 Baso % (Auto) 0.8 Absolute Neuts (auto) 4.3 Absolute Lymphs (auto) 1.9 Absolute Monos (auto) 0.6 Absolute Eos (auto) 0.3 Absolute Basos (auto) 0.1 Absolute Nucleated RBC 0.0 Nucleated RBC % 0.0 Sodium 137 Potassium 3.1 L Chloride 101 Carbon Dioxide 27 Anion Gap 9 BUN 25 H Creatinine 1.05 H Est GFR ( Amer) 62.0 Est GFR (Non-Af Amer) 51.2 BUN/Creatinine Ratio 23.8 H Glucose 155 H POC Glucose (mg/dL) 135 H Calcium 9.1 Magnesium 1.7 L 07/29/19 07/29/19 07/30/19 16:27 20:52 05:49 WBC 11.4 H RBC 3.78 Hgb 11.7 L Hct 34 L MCV 89 MCH 31 MCHC 35 RDW 14 Plt Count 67 L MPV 8.6 Neut % (Auto) 92.9 Lymph % (Auto) 5.7 [place] % (Auto) 1.1 Eos % (Auto) 0.1 Baso % (Auto) 0.2 Absolute Neuts (auto) 10.6 H Absolute Lymphs (auto) 0.6 L Absolute Monos (auto) 0.1 Absolute Eos (auto) 0.0 Absolute Basos (auto) 0.0 Absolute Nucleated RBC 0.0 Nucleated RBC % 0.1 Sodium Potassium Chloride Carbon Dioxide Anion Gap BUN Creatinine Est GFR ( Amer) Est GFR (Non-Af Amer) BUN/Creatinine Ratio Glucose POC Glucose (mg/dL) 272 H 314 H Calcium Magnesium 07/30/19 07/30/19 05:49 07:29 WBC RBC Hgb Hct MCV MCH MCHC RDW Plt Count MPV Neut % (Auto) Lymph % (Auto) [place] % (Auto) Eos % (Auto) Baso % (Auto) Absolute Neuts (auto) Absolute Lymphs (auto) Absolute Monos (auto) Absolute Eos (auto) Absolute Basos (auto) Absolute Nucleated RBC Nucleated RBC % Sodium 136 Potassium 4.3 Chloride 105 Carbon Dioxide 24 Anion Gap 7 BUN 24 Creatinine 0.82 Est GFR ( Amer) 82.5 Est GFR (Non-Af Amer) 68.1 BUN/Creatinine Ratio 29.3 H Glucose 231 H POC Glucose (mg/dL) 248 H Calcium 9.3 Magnesium Intake and Output Last 24 Hours 07/28/19 07/29/19 07/30/19 07/31/19 06:59 06:59 06:59 06:59 Intake Total 0 1340 2190 Output Total 0 0 Balance 0 1340 2190 Weight 229 lb Intake: IV Fluids 0 50 IV Fluids 0 50 IVPB 0 100 IV Fluids 0 100 Oral 0 1340 2040 Output: Urine 0 0 Other: # Bowel Movements 2 # Voids 4 2 3 Amiodarone HCl (Cordarone Tab*) 200 mg PO DAILY [facility] Last Admin: 07/29/19 10:17 Dose: 200 mg Ascorbic Acid (Vitamin C Tab*) 500 mg PO BID [facility] Last Admin: 07/29/19 21:58 Dose: 500 mg Bupropion HCl (Wellbutrin Sr Tab*) 150 mg PO BID [facility] Last Admin: 07/29/19 21:58 Dose: 150 mg Cetirizine HCl (Zyrtec*) 10 mg PO QAM [facility] Last Admin: 07/29/19 09:05 Dose: 10 mg Cholecalciferol (Vitamin D Tab*) 400 unit PO DAILY [facility] Last Admin: 07/29/19 09:05 Dose: 400 unit Dextrose (D50w Syringe 50 Ml*) 12.5 gm IV PUSH .FOR FS < 60 - SS PRN PRN Reason: FS < 60 Insulin Human Lispro (Humalog*) 0 units SUBCUT [facility]; Protocol Last Admin: 07/29/19 21:59 Dose: 8 units Loperamide HCl (Imodium Cap*) 2 mg PO QID PRN PRN Reason: DIARRHEA Metoprolol Succinate (Toprol Xl Tab*) 75 mg PO BID [facility] Last Admin: 07/29/19 21:57 Dose: 75 mg Montelukast Sodium (Singulair Tab*) 10 mg PO BEDTIME [facility] Last Admin: 07/29/19 21:57 Dose: 10 mg Multivitamins/Minerals (Theragran/Minerals Tab*) 1 tab PO DAILY [facility] Last Admin: 07/29/19 09:05 Dose: 1 tab Rivaroxaban (Xarelto(*)) 20 mg PO 1700 [facility] Last Admin: 07/29/19 17:15 Dose: 20 mg Rosuvastatin Calcium (Crestor (Nf)) 10 mg PO MOWEFR [facility]; Protocol Last Admin: 07/29/19 22:02 Dose: 10 mg Assessment: Chronic ITP with prior transient response to steroids and refractory to Rituximab On Xarelto post valve replacement with reported flutter Plan: Reviewed progress in detail with patient Day+2 IV Dex today Follow platelets Reviewed future options including Nplate or Promacta May require short term Insulin on Steroids
[2019-07-30 09:29] LABS: Magnesium 2.2 mg/dL (1.9-2.7)
[2019-07-30 11:41] VITALS: BP 124/44
[2019-07-30] MEDS ORDERED: Dexamethasone IV* 40 MG in NS 0.9% 50 ML* 50 ML IVPB ONE (12:00)
--- NOTE | 2019-07-30 16:22 | DS ---
CC: Dr. Micheal Renteria; Dr. Jay Fish; Dr. Karissa Sanchez * DISCHARGE SUMMARY: DATE OF ADMISSION: 07/27/19 DATE OF DISCHARGE: 07/30/19 PROVIDER: Parris Lorenzana NP ATTENDING PHYSICIAN WHILE IN THE HOSPITAL: Dr. Caro * (dictated by Parris Lorenzana NP). PRIMARY CARE PROVIDER: Dr. Renteria. PRIMARY DIAGNOSES: 1. Paroxysmal atrial fibrillation. 2. Idiopathic thrombocytopenic purpura. SECONDARY DIAGNOSES: 1. Hypertension. 2. Hyperlipidemia. 3. Steroid-induced diabetes. PERTINENT STUDIES WHILE IN THE HOSPITAL: 1. On 07/27/19, ECG: Rapid atrial flutter, 2:1 conduction. 158 heart rate 2. On 07/28/19, ECG: Rapid atrial flutter, 2:1 conduction, 149 heart rate. 3. On 07/29/19, ECG: Normal sinus rhythm, 82 heart rate. 4. On 07/30/19, ECG: Normal sinus rhythm, 79 heart rate. PERTINENT LAB VALUES: White blood cell 11.4, hemoglobin 11.7, hematocrit 34, platelets 67. Sodium 136, potassium 4.3, chloride 105, carbon dioxide 24, anion gap 7, BUN 24, creatinine 0.82, calcium 9.3, magnesium 2.2. HISTORY OF PRESENT ILLNESS/HOSPITAL COURSE: Heather Gilbert is a 73-year-old female patient with history significant for paroxysmal atrial fibrillation, hypertension, hyperlipidemia, bovine aortic valve replacement. Ms. Gilbert presents to the ER on 07/27/19 with complaints of palpitations with associated lightheadedness and shortness of breath for the previous 10 days. Please see H and P dictated by Bandar Catalan DO for complete summary of events leading up to the hospitalization. In short, the patient had TAVR procedure done in [facility] on 07/08/19 for revision of previous SAVR procedure with a bovine aortic valve replacement in 2013. On presentation to the ER, the patient's EKG revealed she was in rapid atrial flutter with heart rate of 158. While in the ER, the patient was given magnesium IV, metoprolol IV, and p.o. dose of metoprolol with good effect. The patient was also found to have hypokalemia at 2.8 and hypomagnesemia at 1.4, which were both repleted. While in the ER, decision was made to admit the patient. Mrs. Gilbert continued to have intermittent episodes of rapid atrial flutter with rates going into the 150s. Initially, on 07/28/19 the patient was treated with 10 mg of Cardizem IV push and upon the recommendation of Dr. Velazquez, the patient's metoprolol was increased to 50 mg p.o. b.i.d. The patient continued her Multaq 400 mg p.o. b.i.d. as well as Xarelto and aspirin. Following the cardizem IVP and increase in lopressor dosing she remained in a rate controlled atrial fibrillation. On 07/29/19, the patient spontaneously converted to normal sinus rhythm and remained without complaints of palpitations. Sal BALDWIN, discontinued calcium channel blockers and increased metoprolol dose to 75 mg by mouth twice a day and discontinued the Multaq and started amiodarone 200 mg daily. No further episodes of rapid atrial flutter throughout the stay. However, she was showing evidence of exacerbation of her ITP. It was determined the aspirin may have been the culprit for the thrombocytopenia. Her platelet count on first reading was 78 on 07/27/19. By 07/29/19 the PLT level decreased to 50 for which it was advised to stop aspirin and continue Xarelto. Oncologist, Dr. Sanchez, who has followed the patient in the past, instructed to give Decadron 40 mg IV x4 days, which the patient received 1 dose on 07/29/19; recheck of platelets the morning of 07/30/19, showed positive elevation to 67. On 07/30/19, with evidence of improving platelet status and continued normal sinus rhythm, it was determined the patient would be safe for discharge with medications that were changed throughout the visit. Lasix 40 mg p.o. b.i.d. was likely depleting potassium and magnesium levels, so that was also stopped by Sal BALDWIN. PHYSICAL EXAMINATION: Ms. Gilbert is a 73-year-old female patient, obese, sitting in chair, reading, does not appear to be in any acute distress. Head is atraumatic, normocephalic. Eyes: EOMs intact. Sclerae anicteric, not pale. Normal teeth, lips, gums. Clear oropharynx. Mucous membranes moist. Neck: supple, with normal appearance and movement. No JVD. Symmetrical chest expansion and respiratory effort. Clear to auscultation. Heart: Regular rate and rhythm. S1 and S2 sounds. No murmurs, rubs, or gallops. Abdomen is soft, round, nontender. Bowel sounds present. Extremities: Pulses 2+ throughout with +1 edema in bilateral lower extremities. Moving all 4 extremities, 5/5 strength. Skin is intact. Ms. Gilbert is stable for discharge. Most recent vital signs are as follows: 98.5 for temp, pulse rate 75, respiratory rate 20, oxygen saturation 95% on room air, blood pressure 124/44. DISCHARGE MEDICATIONS: Changed medications: 1. Amiodarone 200 mg p.o. daily. 2. Dexamethasone 40 mg p.o. daily x2 days. 3. Glyburide tab 2.5 mg p.o. daily. 4. Metoprolol succinate XL tab 75 mg p.o. b.i.d. 5. Furosemide 20mg PO BID Continued home medications: 1. Ascorbic acid 500 mg p.o. b.i.d. 2. Bupropion SR 150 mg tablets p.o. b.i.d. 3. Cetirizine 10 mg p.o. q.a.m. 4. Cholecalciferol 400 units p.o. daily. 5. Loperamide 2 mg p.o. 4 times daily as needed for diarrhea. 6. Montelukast sodium 10 mg p.o. at bedtime. 7. Multivitamin 1 tab p.o. daily. 8. Rosuvastatin 10 mg p.o. Saturday, Saturday, Saturday. 9. Hydrocodone/acetaminophen 5/325 one to two tablets p.o. q.4 hours as needed for pain. 10. Ipratropium bromide 2 sprays both nares 4 times daily. 11. Potassium chloride 20 mEq p.o. b.i.d. 12. Xarelto 20 mg p.o. daily. DISCHARGE PLAN: Activity as tolerated. Resume your regular diet at home. Glyburide was added to medication regimen 2.5 mg by mouth every day, so hold metformin for now. Your metoprolol dose was increased to 75 mg twice daily. Multaq was discontinued and you are started on amiodarone [address] Sanchez would like you to take the 40 mg of Decadron on 07/31/19 and 08/01/19 , then on Saturday have CBC drawn for PLT and followup with Dr. Sanchze on 08/05/19. Follow up with your primary care provider in 1 to 2 weeks and if you develop any palpitations, chest pain, dizziness, shortness of breath , confusion, weakness on one side of your body, or any other concerning symptoms , please return to the emergency department immediately. DISCHARGE CONDITION: Stable. DISCHARGE DISPOSITION: Home. This is a summarized report of complex medical history and hospital stay. For further details, please see the entire medical record. TIME SPENT: Approximately 60 minutes on this discharge. PARRIS LORENZANA, DENNY [id number]/[facility] #: [id number] ANNITA
== END 2019-07-30 15:40 | disposition home or self-care (01) | DRG 309 ==
LOC: ED 13:04 → MEDTELE 20:43
PROVIDERS: ADMIT Family Medicine; ATTEND Internal Medicine
DX: I48.0 Paroxysmal atrial fibrillation (principal); D69.3 Immune thrombocytopenic purpura; I50.32 Chronic diastolic (congestive) heart failure; K21.9 Gastro-esophageal reflux disease without esophagitis; M19.90 Unspecified osteoarthritis, unspecified site; F32.9 Major depressive disorder, single episode, unspecified; E11.9 Type 2 diabetes mellitus without complications; E78.00 Pure hypercholesterolemia, unspecified; E78.5 Hyperlipidemia, unspecified; D86.9 Sarcoidosis, unspecified; E87.6 Hypokalemia; E83.42 Hypomagnesemia; I11.0 Hypertensive heart disease with heart failure; G47.33 Obstructive sleep apnea (adult) (pediatric); I48.92 Unspecified atrial flutter; E66.01 Morbid (severe) obesity due to excess calories; T38.0X5A Adverse effect of glucocorticoids and synthetic analogues, initial encounter; Z95.2 Presence of prosthetic heart valve; Z85.828 Personal history of other malignant neoplasm of skin; Z88.1 Allergy status to other antibiotic agents; Z91.018 Allergy to other foods; Z88.8 Allergy status to other drugs, medicaments and biological substances; Z87.891 Personal history of nicotine dependence; Z68.39 Body mass index [BMI] 39.0-39.9, adult; Y92.9 Unspecified place or not applicable; Z79.01 Long term (current) use of anticoagulants; Z79.899 Other long term (current) drug therapy
CPT/HCPCS: 36415; 80048; 80053; 83036; 83735; 85025; 93005; 94660; 96361; 96365; 96366; 96367; 99285; A9270-GY; J1100; J1940; J3475; J3480; J3490

== ENCOUNTER 2019-10-14 23:49 | Inpatient (IN) ==
[2019-10-15] MEDS ORDERED: HYDROcodone/ACETAMIN 5/325 mg TAB PO ONE (01:17)
[2019-10-15 02:51] LABS: ABS Eosinophils 0.1 10^3/ul (0-0.6); ABS Monocytes 0.7 10^3/ul (0-0.8); Eosinophil % 1.3 %; Hematocrit 41 % (35-47); Hemoglobin 13.7 g/dL (12.0-16.0); Lymphocyte % 10.1 %; Mean Corpuscular HGB Conc 34 g/dL (31-36); Mean Corpuscular Hemoglobin 31 pg (27-31); Mean Corpuscular Volume 91 fL (80-97); Mean Platelet Volume 7.9 fL (7.4-10.4); Nucleated Red Blood Cells % 0.1; Platelet Count 96 10^3/uL (150-450); Red Cell Distribution Width 14 % (10-15); White Blood Count 10.1 10^3/uL (3.5-10.8)
[2019-10-15] MEDS ORDERED: Dextrose 50% Syringe 50 ml 25 GM/50 ML SYRINGE IV PUSH PRN (02:55)
[2019-10-15 03:01] LABS: INR 0.97 (0.82-1.09)
[2019-10-15 03:07] LABS: Albumin 4.1 g/dL (3.2-5.2); Albumin/Globulin Ratio 1.9 (1-3); Calcium 9.5 mg/dL (8.6-10.3); EGFR African American 65.4 (>60); EGFR Non-African American 54.1 (>60); Globulin 2.2 g/dL (2-4); Potassium 3.7 mmol/L (3.5-5.0); Total Bilirubin 0.4 mg/dL (0.2-1.0); Total Protein 6.3 g/dL (6.4-8.9)
[2019-10-15] MEDS ORDERED: diPHENhydraMINE 25 mg TAB PO ONE (05:47)
[2019-10-15] MEDS: Potassium Chlor 20 meq TAB.ER PO SCH ×2 (08:45→20:58)
[2019-10-15] MEDS: METRONIDAZOLE TOPICAL SCH (09:01)
[2019-10-15] MEDS: Insulin LISPRO 100 units/ml(*) SUBCUT SCH ×3 (09:01→17:06)
[2019-10-15] MEDS: IPRATROPIUM BR (NF)0.03% NASAL 1 SPRAY BTL BOTH NARES SCH ×2 (12:46→20:59)
[2019-10-15] MEDS: WARFARIN 2.5 MG PO SCH (17:10)
[2019-10-15] MEDS: Enoxaparin 100 MG/ML SYR(*) SUBCUT SCH (17:47)
[2019-10-16] MEDS: Enoxaparin 100 MG/ML SYR(*) SUBCUT SCH (05:57)
[2019-10-16] MEDS ORDERED: Heparin 5000 UNITS/ML VIAL(*) 1 ml vial IV SCH (09:00)
[2019-10-16 09:03] LABS: ABS Basophils 0.1 10^3/ul (0-0.2); ABS Eosinophils 0.3 10^3/ul (0-0.6); ABS Lymphocytes 1.4 10^3/ul (1.0-4.8); ABS Monocytes 0.8 10^3/ul (0-0.8); Eosinophil % 3.6 %; Hematocrit 42 % (35-47); Hemoglobin 14.3 g/dL (12.0-16.0); Mean Corpuscular HGB Conc 35 g/dL (31-36); Mean Corpuscular Hemoglobin 31 pg (27-31); Mean Corpuscular Volume 89 fL (80-97); Mean Platelet Volume 7.8 fL (7.4-10.4); Platelet Count 107 10^3/uL (150-450); Red Blood Count 4.65 10^6 /uL (3.70-4.87); Red Cell Distribution Width 14 % (10-15); White Blood Count 8.2 10^3/uL (3.5-10.8)
[2019-10-16] MEDS: Potassium Chlor 20 meq TAB.ER PO SCH ×2 (09:05→20:07)
[2019-10-16] MEDS: Insulin LISPRO 100 units/ml(*) SUBCUT SCH ×3 (09:06→17:41)
[2019-10-16] MEDS: IPRATROPIUM BR (NF)0.03% NASAL 1 SPRAY BTL BOTH NARES SCH ×2 (09:17→23:15)
[2019-10-16] MEDS: CMC: Rosuvastatin 10 mg TAB (NF) PO SCH (09:17)
[2019-10-16] MEDS: METRONIDAZOLE TOPICAL SCH (09:17)
[2019-10-16] MEDS: Multivitamins/Minerals TAB PO SCH (09:17)
[2019-10-16 09:20] LABS: Activated Partial Thrombo Time 45.5 seconds (26.0-38.0); INR 1.03 (0.82-1.09)
[2019-10-16 09:21] LABS: BUN/Creatinine Ratio 16.1 (8-20); Calcium 9.2 mg/dL (8.6-10.3); EGFR African American 76.8 (>60); EGFR Non-African American 63.5 (>60); Potassium 3.8 mmol/L (3.5-5.0)
[2019-10-16] MEDS ORDERED: Gadoteridol (CONTRAST) 279.3 MG/ML 10 ML IV ONE (12:00)
[2019-10-16] MEDS ORDERED: Lidocaine 1% MPF 5 ML VIAL INJ ONE (16:00)
[2019-10-16] MEDS ORDERED: Heparin DRIP 25,000 UNITS(*) 25,000 UNITS/500 ML BAG IV SCH (17:00)
[2019-10-16] MEDS: WARFARIN 2.5 MG PO SCH (17:40)
[2019-10-16] MEDS: Enoxaparin 150 MG/ML SYR(*) SUBCUT SCH (19:32)
[2019-10-17] MEDS: Enoxaparin 150 MG/ML SYR(*) SUBCUT SCH ×2 (04:43→17:17)
[2019-10-17 06:45] LABS: ABS Eosinophils 0.3 10^3/ul (0-0.6); ABS Lymphocytes 1.5 10^3/ul (1.0-4.8); ABS Monocytes 0.7 10^3/ul (0-0.8); Eosinophil % 3.8 %; Hematocrit 40 % (35-47); Lymphocyte % 19.5 %; Mean Corpuscular HGB Conc 35 g/dL (31-36); Mean Corpuscular Hemoglobin 31 pg (27-31); Mean Corpuscular Volume 90 fL (80-97); Mean Platelet Volume 7.7 fL (7.4-10.4); Platelet Count 107 10^3/uL (150-450); Red Blood Count 4.52 10^6 /uL (3.70-4.87); Red Cell Distribution Width 14 % (10-15); White Blood Count 7.7 10^3/uL (3.5-10.8)
[2019-10-17] MEDS: Potassium Chlor 20 meq TAB.ER PO SCH ×2 (08:26→20:24)
[2019-10-17] MEDS: Insulin LISPRO 100 units/ml(*) SUBCUT SCH ×3 (08:29→16:59)
[2019-10-17] MEDS: METRONIDAZOLE TOPICAL SCH (08:30)
[2019-10-17] MEDS: IPRATROPIUM BR (NF)0.03% NASAL 1 SPRAY BTL BOTH NARES SCH ×2 (08:30→21:08)
[2019-10-17 16:04] LABS: INR 1.19 (0.82-1.09)
[2019-10-17] MEDS: WARFARIN 2.5 MG PO SCH (17:17)
[2019-10-18] MEDS: Enoxaparin 150 MG/ML SYR(*) SUBCUT SCH ×2 (05:57→17:24)
[2019-10-18 07:23] LABS: ABS Eosinophils 0.3 10^3/ul (0-0.6); ABS Lymphocytes 1.9 10^3/ul (1.0-4.8); ABS Monocytes 0.6 10^3/ul (0-0.8); Eosinophil % 3.9 %; Hematocrit 41 % (35-47); Hemoglobin 13.9 g/dL (12.0-16.0); Lymphocyte % 28.5 %; Mean Corpuscular HGB Conc 34 g/dL (31-36); Mean Corpuscular Hemoglobin 31 pg (27-31); Mean Corpuscular Volume 92 fL (80-97); Mean Platelet Volume 7.9 fL (7.4-10.4); Nucleated Red Blood Cells % 0.1; Platelet Count 133 10^3/uL (150-450); Red Blood Count 4.41 10^6 /uL (3.70-4.87); Red Cell Distribution Width 14 % (10-15); White Blood Count 6.6 10^3/uL (3.5-10.8)
[2019-10-18 07:37] LABS: EGFR African American 85.8 (>60); EGFR Non-African American 70.9 (>60)
[2019-10-18] MEDS ORDERED: Potassium Chlor 20 meq TAB.ER PO ONE (07:50)
[2019-10-18 07:59] LABS: INR 1.29 (0.82-1.09)
[2019-10-18] MEDS: Potassium Chlor 20 meq TAB.ER PO SCH ×2 (08:24→20:57)
[2019-10-18] MEDS: Insulin LISPRO 100 units/ml(*) SUBCUT SCH ×3 (08:25→17:25)
[2019-10-18] MEDS: METRONIDAZOLE TOPICAL SCH (08:26)
[2019-10-18] MEDS: IPRATROPIUM BR (NF)0.03% NASAL 1 SPRAY BTL BOTH NARES SCH ×2 (08:26→22:34)
[2019-10-18] MEDS ORDERED: WARFARIN 3 MG PO SCH (17:00)
[2019-10-18] MEDS: WARFARIN 4 MG PO SCH (17:25)
[2019-10-19] MEDS: Enoxaparin 150 MG/ML SYR(*) SUBCUT SCH ×2 (06:14→18:24)
[2019-10-19 07:16] LABS: ABS Eosinophils 0.2 10^3/ul (0-0.6); ABS Lymphocytes 1.6 10^3/ul (1.0-4.8); ABS Monocytes 0.7 10^3/ul (0-0.8); Hematocrit 37 % (35-47); Hemoglobin 12.8 g/dL (12.0-16.0); Lymphocyte % 27.5 %; Mean Corpuscular HGB Conc 34 g/dL (31-36); Mean Corpuscular Hemoglobin 31 pg (27-31); Mean Corpuscular Volume 90 fL (80-97); Mean Platelet Volume 7.6 fL (7.4-10.4); Platelet Count 127 10^3/uL (150-450); Red Blood Count 4.16 10^6 /uL (3.70-4.87); Red Cell Distribution Width 14 % (10-15); White Blood Count 5.8 10^3/uL (3.5-10.8)
[2019-10-19] MEDS: Potassium Chlor 20 meq TAB.ER PO SCH ×2 (08:35→22:10)
[2019-10-19] MEDS: Insulin LISPRO 100 units/ml(*) SUBCUT SCH ×3 (08:40→17:28)
[2019-10-19] MEDS: IPRATROPIUM BR (NF)0.03% NASAL 1 SPRAY BTL BOTH NARES SCH ×2 (08:45→22:13)
[2019-10-19] MEDS: CMC: Rosuvastatin 10 mg TAB (NF) PO SCH (09:55)
[2019-10-19] MEDS: Multivitamins/Minerals TAB PO SCH (09:55)
[2019-10-19] MEDS: METRONIDAZOLE TOPICAL SCH (09:56)
[2019-10-19] MEDS: WARFARIN 4 MG PO SCH (17:28)
[2019-10-20] MEDS: Enoxaparin 150 MG/ML SYR(*) SUBCUT SCH ×2 (06:27→17:18)
[2019-10-20 08:13] LABS: ABS Eosinophils 0.2 10^3/ul (0-0.6); ABS Lymphocytes 1.5 10^3/ul (1.0-4.8); ABS Monocytes 0.6 10^3/ul (0-0.8); Eosinophil % 3.6 %; Hematocrit 38 % (35-47); Hemoglobin 13.1 g/dL (12.0-16.0); Lymphocyte % 28.1 %; Mean Corpuscular HGB Conc 35 g/dL (31-36); Mean Corpuscular Hemoglobin 31 pg (27-31); Mean Corpuscular Volume 90 fL (80-97); Mean Platelet Volume 7.4 fL (7.4-10.4); Platelet Count 125 10^3/uL (150-450); Red Cell Distribution Width 14 % (10-15); White Blood Count 5.3 10^3/uL (3.5-10.8)
[2019-10-20] MEDS: METRONIDAZOLE TOPICAL SCH (08:16)
[2019-10-20] MEDS: IPRATROPIUM BR (NF)0.03% NASAL 1 SPRAY BTL BOTH NARES SCH ×2 (08:16→20:20)
[2019-10-20] MEDS: Potassium Chlor 20 meq TAB.ER PO SCH ×2 (08:23→20:16)
[2019-10-20] MEDS: Insulin LISPRO 100 units/ml(*) SUBCUT SCH ×3 (08:23→17:18)
[2019-10-20 08:27] LABS: EGFR African American 78.9 (>60); EGFR Non-African American 65.2 (>60)
[2019-10-20 08:58] LABS: INR 1.96 (0.82-1.09)
[2019-10-20] MEDS: WARFARIN 4 MG PO SCH (17:17)
[2019-10-21] MEDS: Enoxaparin 150 MG/ML SYR(*) SUBCUT SCH (06:22)
[2019-10-21 07:47] LABS: ABS Eosinophils 0.2 10^3/ul (0-0.6); ABS Lymphocytes 1.8 10^3/ul (1.0-4.8); ABS Monocytes 0.7 10^3/ul (0-0.8); Eosinophil % 3.1 %; Hematocrit 39 % (35-47); Hemoglobin 13.6 g/dL (12.0-16.0); Lymphocyte % 27.7 %; Mean Corpuscular HGB Conc 35 g/dL (31-36); Mean Corpuscular Hemoglobin 31 pg (27-31); Mean Corpuscular Volume 90 fL (80-97); Mean Platelet Volume 7.5 fL (7.4-10.4); Nucleated Red Blood Cells % 0.1; Platelet Count 137 10^3/uL (150-450); Red Blood Count 4.35 10^6 /uL (3.70-4.87); Red Cell Distribution Width 14 % (10-15); White Blood Count 6.5 10^3/uL (3.5-10.8)
[2019-10-21 07:55] LABS: INR 2.49 (0.82-1.09)
[2019-10-21] MEDS: Insulin LISPRO 100 units/ml(*) SUBCUT SCH ×3 (08:44→17:41)
[2019-10-21] MEDS: IPRATROPIUM BR (NF)0.03% NASAL 1 SPRAY BTL BOTH NARES SCH ×2 (08:48→20:58)
[2019-10-21] MEDS: Potassium Chlor 20 meq TAB.ER PO SCH ×2 (08:49→20:57)
[2019-10-21] MEDS: CMC: Rosuvastatin 10 mg TAB (NF) PO SCH (08:49)
[2019-10-21] MEDS: METRONIDAZOLE TOPICAL SCH (08:49)
[2019-10-21] MEDS: Multivitamins/Minerals TAB PO SCH (08:51)
[2019-10-21] MEDS: WARFARIN 4 MG PO SCH (17:42)
[2019-10-22 07:06] LABS: INR 2.33 (0.82-1.09)
[2019-10-22 07:21] LABS: EGFR African American 87.1 (>60)
[2019-10-22] MEDS: Insulin LISPRO 100 units/ml(*) SUBCUT SCH ×2 (08:41→12:35)
[2019-10-22] MEDS: Potassium Chlor 20 meq TAB.ER PO SCH (08:43)
[2019-10-22] MEDS: IPRATROPIUM BR (NF)0.03% NASAL 1 SPRAY BTL BOTH NARES SCH (08:44)
[2019-10-22] MEDS: METRONIDAZOLE TOPICAL SCH (08:45)
[2019-10-22 17:19] VITALS: BP 128/66
== END 2019-10-22 16:50 | disposition home health service (06) | DRG 552 ==
LOC: MEDTELE 23:49 → ED 23:49 → MEDTELE 10-15 04:16
PROVIDERS: ADMIT Internal Medicine; ATTEND Internal Medicine

== ENCOUNTER 2020-06-09 15:39 | Inpatient (IN) ==
[2020-06-09] MEDS ORDERED: fentaNYL 100 mcg/2 ml 50 MCG/ML VIAL IV SLOW PU ONE ×2 (16:28→20:09)
[2020-06-09 18:08] LABS: ABS Basophils 0.1 10^3/ul (0-0.2); ABS Lymphocytes 0.9 10^3/ul (1.0-4.8); ABS Monocytes 0.8 10^3/ul (0-0.8); ABS Neutrophils 10.3 10^3/ul (1.5-7.7); Eosinophil % 0.4 %; Hematocrit 42 % (35-47); Hemoglobin 14.2 g/dL (12.0-16.0); Lymphocyte % 7.8 %; Mean Corpuscular HGB Conc 33 g/dL (31-36); Mean Corpuscular Hemoglobin 31 pg (27-31); Mean Corpuscular Volume 92 fL (80-97); Mean Platelet Volume 7.9 fL (7.4-10.4); Platelet Count 100 10^3/uL (150-450); Red Cell Distribution Width 13 % (10-15); White Blood Count 12.2 10^3/uL (3.5-10.8)
[2020-06-09 18:18] LABS: BUN/Creatinine Ratio 18.8 (8-20); Calcium 9.2 mg/dL (8.6-10.3); EGFR African American 57.4 (>60); EGFR Non-African American 47.4 (>60); Potassium 3.8 mmol/L (3.5-5.0)
[2020-06-09 18:23] LABS: Activated Partial Thrombo Time 38.8 seconds (26.0-38.0); INR 2.29 (0.82-1.09)
[2020-06-09] MEDS ORDERED: Ondansetron 4 mg VIAL 2 MG/ML 2 ml VIAL IV PRN (20:11)
[2020-06-09] MEDS ORDERED: Heparin DRIP 25,000 UNITS BAG 25,000 UNITS/500 ML BAG IV SCH (20:30)
[2020-06-09] MEDS ORDERED: Phytonadione Oral Solution 5 MG/25 ML UDC PO ONE (20:41)
[2020-06-09] MEDS ORDERED: Dextrose 50% Syringe 50 ml 25 GM/50 ML SYRINGE IV PUSH PRN (20:50)
[2020-06-09] MEDS ORDERED: Heparin 5000 UNITS/ML 1 mL VIAL IV SCH (21:00)
[2020-06-09] MEDS ORDERED: NS 0.9% 1000 ml BAG 1,000 ML IV SCH (21:00)
[2020-06-09 22:08] LABS: Vitamin D Total 25(OH) 36.1 ng/mL (20-50)
[2020-06-09] MEDS: Potassium Chlor 20 meq TAB.ER PO SCH (23:53)
[2020-06-10 02:10] LABS: ABS Eosinophils 0.1 10^3/ul (0-0.6); ABS Lymphocytes 1.2 10^3/ul (1.0-4.8); ABS Monocytes 0.9 10^3/ul (0-0.8); ABS Neutrophils 8.3 10^3/ul (1.5-7.7); Eosinophil % 0.6 %; Hematocrit 39 % (35-47); Hemoglobin 13.4 g/dL (12.0-16.0); Lymphocyte % 11.2 %; Mean Corpuscular HGB Conc 34 g/dL (31-36); Mean Corpuscular Hemoglobin 31 pg (27-31); Mean Corpuscular Volume 91 fL (80-97); Red Blood Count 4.29 10^6 /uL (3.70-4.87); Red Cell Distribution Width 13 % (10-15); White Blood Count 10.4 10^3/uL (3.5-10.8)
[2020-06-10 02:18] LABS: BUN/Creatinine Ratio 20.9 (8-20); Calcium 8.8 mg/dL (8.6-10.3); EGFR African American 72.9 (>60); EGFR Non-African American 60.3 (>60); Magnesium 1.8 mg/dL (1.9-2.7); Potassium 3.7 mmol/L (3.5-5.0)
[2020-06-10 02:32] LABS: Mean Platelet Volume 7.2 fL (7.4-10.4); Platelet Count 93 10^3/uL (150-450)
[2020-06-10 05:51] LABS: INR 2.21 (0.82-1.09)
[2020-06-10] MEDS ORDERED: Heparin 5000 UNITS/ML 1 mL VIAL IV SCH (08:00)
[2020-06-10] MEDS ORDERED: Heparin DRIP 25,000 UNITS BAG 25,000 UNITS/500 ML BAG IV SCH (08:00)
[2020-06-10] MEDS ORDERED: Magnesium Sulfate 2 gm BAG 2 GM/50 ML BAG IVPB ONE (08:01)
[2020-06-10] MEDS ORDERED: Influenza VAC *QUAD* 2020-21* 0.5 ML SYRINGE IM ONE (09:00)
[2020-06-10] MEDS: Potassium Chlor 20 meq TAB.ER PO SCH ×2 (10:08→20:16)
[2020-06-10] MEDS: Cholecalciferol (VIT D3) 1,000 unit TAB PO SCH (10:08)
[2020-06-10] MEDS: CMC:Rosuvastatin 5 mg TAB (NF) PO SCH (10:09)
[2020-06-10] MEDS: Lactated Ringers 1000 ml BAG 1,000 ML IV SCH (16:50)
[2020-06-11 03:07] LABS: Urine Appearance Clear; Urine Bilirubin Negative (Negative); Urine Blood Negative (Negative); Urine Color Yellow; Urine Glucose 2+(150 mg/dL) (Negative); Urine Ketones Negative (Negative); Urine Nitrite Negative (Negative); Urine Protein Negative (Negative); Urine Specific Gravity 1.018 (1.010-1.030); Urine Urobilinogen Negative (Negative)
[2020-06-11 05:56] LABS: Calcium 8.4 mg/dL (8.6-10.3); Potassium 4.6 mmol/L (3.5-5.0)
[2020-06-11 06:01] LABS: BUN/Creatinine Ratio 21.1 (8-20); EGFR African American 73.9 (>60); INR 1.2 (0.82-1.09)
[2020-06-11 06:15] LABS: Hematocrit 38 % (35-47); Hemoglobin 12.5 g/dL (12.0-16.0); Mean Corpuscular HGB Conc 33 g/dL (31-36); Mean Corpuscular Hemoglobin 31 pg (27-31); Mean Corpuscular Volume 94 fL (80-97); Red Blood Count 4.03 10^6 /uL (3.70-4.87); Red Cell Distribution Width 13 % (10-15); White Blood Count 12.8 10^3/uL (3.5-10.8)
[2020-06-11 06:55] LABS: ABS Basophils 0.1 10^3/ul (0-0.2); ABS Eosinophils 0.5 10^3/ul (0-0.6); ABS Lymphocytes 2.4 10^3/ul (1.0-4.8); ABS Monocytes 1.1 10^3/ul (0-0.8); ABS Neutrophils 8.7 10^3/ul (1.5-7.7); Eosinophil % 3.7 %; Lymphocyte % 18.9 %; Mean Platelet Volume 7.8 fL (7.4-10.4); Nucleated Red Blood Cells % 0.1; Platelet Count 82 10^3/uL (150-450)
[2020-06-11] MEDS: Lactated Ringers 1000 ml BAG 1,000 ML IV SCH ×2 (07:31→23:09)
[2020-06-11] MEDS: Cholecalciferol (VIT D3) 1,000 unit TAB PO SCH (11:00)
[2020-06-11] MEDS: Potassium Chlor 20 meq TAB.ER PO SCH ×2 (11:00→19:55)
[2020-06-12 06:33] LABS: Hematocrit 35 % (35-47); Hemoglobin 12.2 g/dL (12.0-16.0); Mean Corpuscular HGB Conc 34 g/dL (31-36); Mean Corpuscular Hemoglobin 31 pg (27-31); Mean Corpuscular Volume 91 fL (80-97); Mean Platelet Volume 7.5 fL (7.4-10.4); Platelet Count 75 10^3/uL (150-450); Red Blood Count 3.87 10^6 /uL (3.70-4.87); Red Cell Distribution Width 13 % (10-15); White Blood Count 7.1 10^3/uL (3.5-10.8)
[2020-06-12 06:34] LABS: INR 1.22 (0.82-1.09)
[2020-06-12 06:38] LABS: BUN/Creatinine Ratio 19.2 (8-20); Calcium 8.5 mg/dL (8.6-10.3); EGFR African American 87.1 (>60); Potassium 4.4 mmol/L (3.5-5.0)
[2020-06-12] MEDS: Cholecalciferol (VIT D3) 1,000 unit TAB PO SCH (08:47)
[2020-06-12] MEDS: Potassium Chlor 20 meq TAB.ER PO SCH ×2 (08:48→21:19)
[2020-06-12] MEDS ORDERED: ceFAZolin 2 GM PREMIX 2 GM/50 ML BAG ONE (11:37)
[2020-06-12] MEDS ORDERED: fentaNYL 100 mcg/2 ml 50 MCG/ML VIAL ONE ×2 (11:47→13:13)
[2020-06-12] MEDS ORDERED: Succinylcholine 200 mg VIAL 20 mg/ml 10 ml VIAL (200 mg) ONE (11:48)
[2020-06-12] MEDS ORDERED: Glycopyrrolate IV 0.2 MG/ML 1 ML VIAL ONE (11:48)
[2020-06-12] MEDS ORDERED: Etomidate 20 mg/10 ml 2 MG/ML 10 ml VIAL ONE (11:48)
[2020-06-12] MEDS ORDERED: Midazolam 2 mg/2 ml VIAL 1 mg/ml 2 ml VIAL (2 mg) ONE (11:48)
[2020-06-12] MEDS ORDERED: Propofol 10 MG/ML 20 ML BTL ONE (11:48)
[2020-06-12] MEDS ORDERED: Rocuronium 50 mg VIAL 10 mg/ml 5 ml VIAL (50 mg) ONE ×2 (11:52→13:21)
[2020-06-12] MEDS ORDERED: Phenylephrine 40 mcg/mL 10mL (400mcg) SYRINGE ONE ×2 (11:54→15:11)
[2020-06-12] MEDS ORDERED: EPHEDrine (Pressors) 50 MG/ML VIAL ONE (15:00)
[2020-06-12] MEDS ORDERED: Ondansetron 4 mg VIAL 2 MG/ML 2 ml VIAL ONE (15:00)
[2020-06-12] MEDS ORDERED: Dexamethasone IV 4 MG/ML VIAL 1 ml VIAL ONE (15:00)
[2020-06-12] MEDS ORDERED: ROPIVACAINE 5 MG/ML 30 ML BTL (0.5%) ONE (16:06)
[2020-06-12] MEDS ORDERED: Acetaminophen IV 1 GM/100ML 100 ML ONE (16:09)
[2020-06-12] MEDS ORDERED: Naloxone 0.4 mg VIAL 0.4 mg/ml 1 ml VIAL IV PRN (16:21)
[2020-06-12] MEDS ORDERED: fentaNYL 100 mcg/2 ml 50 MCG/ML VIAL IV PRN (16:21)
[2020-06-12] MEDS ORDERED: Ondansetron 4 mg VIAL 2 MG/ML 2 ml VIAL IV PRN (16:21)
[2020-06-12 17:56] LABS: ABS Basophils 0.1 10^3/ul (0-0.2); ABS Eosinophils 0.3 10^3/ul (0-0.6); ABS Lymphocytes 1.1 10^3/ul (1.0-4.8); ABS Monocytes 0.9 10^3/ul (0-0.8); Eosinophil % 3.5 %; Lymphocyte % 14.8 %; Nucleated Red Blood Cells % 0.1
[2020-06-12] MEDS: ceFAZolin 1 GM X 3 DOSES POST-OP Q8H (AddVan) IVPB SCH (21:19)
[2020-06-12] MEDS: Lactated Ringers 1000 ml BAG 1,000 ML IV SCH (21:19)
[2020-06-13 04:44] LABS: ABS Lymphocytes 0.7 10^3/ul (1.0-4.8); ABS Monocytes 1.2 10^3/ul (0-0.8); ABS Neutrophils 9.9 10^3/ul (1.5-7.7); Hematocrit 29 % (35-47); Hemoglobin 9.9 g/dL (12.0-16.0); Lymphocyte % 5.8 %; Mean Corpuscular HGB Conc 34 g/dL (31-36); Mean Corpuscular Hemoglobin 31 pg (27-31); Mean Corpuscular Volume 92 fL (80-97); Mean Platelet Volume 8.1 fL (7.4-10.4); Platelet Count 100 10^3/uL (150-450); Red Blood Count 3.14 10^6 /uL (3.70-4.87); Red Cell Distribution Width 13 % (10-15); White Blood Count 11.8 10^3/uL (3.5-10.8)
[2020-06-13 04:53] LABS: INR 1.28 (0.82-1.09)
[2020-06-13] MEDS: ceFAZolin 1 GM X 3 DOSES POST-OP Q8H (AddVan) IVPB SCH ×2 (04:57→13:17)
[2020-06-13 05:08] LABS: Calcium 8.2 mg/dL (8.6-10.3); EGFR African American 83.4 (>60); EGFR Non-African American 68.9 (>60); Potassium 4.6 mmol/L (3.5-5.0)
[2020-06-13] MEDS: Potassium Chlor 20 meq TAB.ER PO SCH ×2 (08:41→21:30)
[2020-06-13] MEDS: Cholecalciferol (VIT D3) 1,000 unit TAB PO SCH (08:41)
[2020-06-13] MEDS: CMC:Rosuvastatin 5 mg TAB (NF) PO SCH (08:45)
[2020-06-13] MEDS: Enoxaparin 30 MG/0.3 ML SYR SUBCUT SCH (08:54)
[2020-06-13] MEDS ORDERED: NS 0.9% 500 ml BAG 500 ML IV ONE (15:11)
[2020-06-13] MEDS ORDERED: Polyethylene Glycol 3350 17 GM PACKET PO PRN (17:00)
[2020-06-13] MEDS ORDERED: Magnesium Hydroxide LIQ 30 ML UDC PO PRN (17:00)
[2020-06-13] MEDS ORDERED: Senna TAB 8.6 mg TAB PO PRN (17:00)
[2020-06-13] MEDS: oxyCODONE/Acetamin 5/325 mg TAB PO PRN (17:49)
[2020-06-13] MEDS ORDERED: NS 0.9% 1000 ml BAG 1,000 ML IV ONE (18:52)
[2020-06-13] MEDS: Insulin GLARGINE 100 un/ml 10 ml VIAL SUBCUT SCH (21:31)
[2020-06-13] MEDS: Magnesium Hydroxide LIQ 30 ML UDC PO SCH (21:31)
[2020-06-14 06:33] LABS: ABS Eosinophils 0.1 10^3/ul (0-0.6); ABS Lymphocytes 1.4 10^3/ul (1.0-4.8); ABS Monocytes 1.4 10^3/ul (0-0.8); ABS Neutrophils 8.6 10^3/ul (1.5-7.7); Eosinophil % 0.8 %; Hematocrit 25 % (35-47); Hemoglobin 8.2 g/dL (12.0-16.0); Lymphocyte % 12.2 %; Mean Corpuscular HGB Conc 33 g/dL (31-36); Mean Corpuscular Hemoglobin 31 pg (27-31); Mean Corpuscular Volume 93 fL (80-97); Mean Platelet Volume 7.4 fL (7.4-10.4); Platelet Count 149 10^3/uL (150-450); Red Blood Count 2.68 10^6 /uL (3.70-4.87); Red Cell Distribution Width 13 % (10-15); White Blood Count 11.5 10^3/uL (3.5-10.8)
[2020-06-14 06:56] LABS: INR 1.32 (0.82-1.09)
[2020-06-14] MEDS: Cholecalciferol (VIT D3) 1,000 unit TAB PO SCH (09:21)
[2020-06-14] MEDS: Potassium Chlor 20 meq TAB.ER PO SCH ×2 (09:29→21:55)
[2020-06-14] MEDS: oxyCODONE/Acetamin 5/325 mg TAB PO PRN (09:30)
[2020-06-14] MEDS: Magnesium Hydroxide LIQ 30 ML UDC PO SCH ×2 (09:33→21:55)
[2020-06-14] MEDS: Enoxaparin 30 MG/0.3 ML SYR SUBCUT SCH (09:34)
[2020-06-14] MEDS: Warfarin DAILY REMINDER **NOTE FOLLOW UP SCH (17:54)
[2020-06-14] MEDS: Insulin GLARGINE 100 un/ml 10 ml VIAL SUBCUT SCH (21:55)
[2020-06-15] MEDS: oxyCODONE/Acetamin 5/325 mg TAB PO PRN ×2 (01:47→13:57)
[2020-06-15 07:03] LABS: INR 1.69 (0.82-1.09)
[2020-06-15] MEDS: Potassium Chlor 20 meq TAB.ER PO SCH ×2 (08:37→21:41)
[2020-06-15] MEDS: Enoxaparin 30 MG/0.3 ML SYR SUBCUT SCH (08:37)
[2020-06-15] MEDS: Cholecalciferol (VIT D3) 1,000 unit TAB PO SCH (08:37)
[2020-06-15] MEDS: Magnesium Hydroxide LIQ 30 ML UDC PO SCH ×2 (08:37→21:41)
[2020-06-15] MEDS: CMC:Rosuvastatin 5 mg TAB (NF) PO SCH (08:43)
[2020-06-15] MEDS ORDERED: Dextran 70/Hypromellose Tears Eye Drops 15 ml BTL (for Artificials Tears) BOTH EYES PRN (12:00)
[2020-06-15] MEDS: Warfarin DAILY REMINDER **NOTE FOLLOW UP SCH (17:36)
[2020-06-15] MEDS: Insulin GLARGINE 100 un/ml 10 ml VIAL SUBCUT SCH (21:41)
[2020-06-16 05:21] LABS: Hematocrit 22 % (35-47); Hemoglobin 7.2 g/dL (12.0-16.0); Mean Corpuscular HGB Conc 33 g/dL (31-36); Mean Corpuscular Hemoglobin 31 pg (27-31); Mean Corpuscular Volume 94 fL (80-97); Platelet Count 214 10^3/uL (150-450); Red Blood Count 2.35 10^6 /uL (3.70-4.87); Red Cell Distribution Width 13 % (10-15); White Blood Count 7.6 10^3/uL (3.5-10.8)
[2020-06-16] MEDS: Enoxaparin 30 MG/0.3 ML SYR SUBCUT SCH (11:00)
[2020-06-16] MEDS: Cholecalciferol (VIT D3) 1,000 unit TAB PO SCH (11:01)
[2020-06-16] MEDS: Potassium Chlor 20 meq TAB.ER PO SCH ×2 (11:01→22:10)
[2020-06-16] MEDS: Magnesium Hydroxide LIQ 30 ML UDC PO SCH ×2 (11:07→22:11)
[2020-06-16 13:26] LABS: Hematocrit 24 % (35-47); Hemoglobin 8.1 g/dL (12.0-16.0)
[2020-06-16] MEDS: Warfarin DAILY REMINDER **NOTE FOLLOW UP SCH (17:02)
[2020-06-16] MEDS: Insulin GLARGINE 100 un/ml 10 ml VIAL SUBCUT SCH (22:10)
[2020-06-17 05:31] LABS: Hematocrit 22 % (35-47); Hemoglobin 7.5 g/dL (12.0-16.0)
[2020-06-17 05:35] LABS: INR 3.28 (0.82-1.09)
[2020-06-17] MEDS: Magnesium Hydroxide LIQ 30 ML UDC PO SCH ×2 (08:21→21:07)
[2020-06-17] MEDS: Cholecalciferol (VIT D3) 1,000 unit TAB PO SCH (08:22)
[2020-06-17] MEDS: Potassium Chlor 20 meq TAB.ER PO SCH ×2 (08:23→21:18)
[2020-06-17] MEDS: CMC:Rosuvastatin 5 mg TAB (NF) PO SCH (08:28)
[2020-06-17 15:35] LABS: Hematocrit 24 % (35-47); Hemoglobin 8.2 g/dL (12.0-16.0)
[2020-06-17] MEDS: Warfarin DAILY REMINDER **NOTE FOLLOW UP SCH (16:47)
[2020-06-17] MEDS: Insulin GLARGINE 100 un/ml 10 ml VIAL SUBCUT SCH (21:16)
[2020-06-17 22:19] LABS: Hematocrit 24 % (35-47); Hemoglobin 7.9 g/dL (12.0-16.0)
[2020-06-17] MEDS: oxyCODONE/Acetamin 5/325 mg TAB PO PRN (22:54)
[2020-06-18 05:00] LABS: Hematocrit 24 % (35-47); Mean Corpuscular HGB Conc 34 g/dL (31-36); Mean Corpuscular Hemoglobin 31 pg (27-31); Mean Corpuscular Volume 93 fL (80-97); Mean Platelet Volume 6.7 fL (7.4-10.4); Platelet Count 297 10^3/uL (150-450); Red Blood Count 2.53 10^6 /uL (3.70-4.87); Red Cell Distribution Width 13 % (10-15); White Blood Count 7.5 10^3/uL (3.5-10.8)
[2020-06-18 05:21] LABS: INR 2.98 (0.82-1.09)
[2020-06-18 06:47] LABS: ABS Eosinophils 0.3 10^3/ul (0-0.6); ABS Lymphocytes 1.9 10^3/ul (1.0-4.8); ABS Monocytes 0.8 10^3/ul (0-0.8); ABS Neutrophils 4.4 10^3/ul (1.5-7.7); Eosinophil % 4.5 %; Lymphocyte % 25.6 %; Nucleated Red Blood Cells % 0.2
[2020-06-18] MEDS: oxyCODONE/Acetamin 5/325 mg TAB PO PRN ×4 (07:53→22:06)
[2020-06-18] MEDS: Potassium Chlor 20 meq TAB.ER PO SCH ×3 (09:09→21:02)
[2020-06-18] MEDS: Cholecalciferol (VIT D3) 1,000 unit TAB PO SCH (09:09)
[2020-06-18] MEDS: Magnesium Hydroxide LIQ 30 ML UDC PO SCH ×3 (09:12→20:58)
[2020-06-18] MEDS: Warfarin DAILY REMINDER **NOTE FOLLOW UP SCH (17:42)
[2020-06-18] MEDS: Insulin GLARGINE 100 un/ml 10 ml VIAL SUBCUT SCH (20:53)
[2020-06-19] MEDS: Cholecalciferol (VIT D3) 1,000 unit TAB PO SCH (08:46)
[2020-06-19] MEDS: Magnesium Hydroxide LIQ 30 ML UDC PO SCH ×2 (08:46→21:07)
[2020-06-19] MEDS: Potassium Chlor 20 meq TAB.ER PO SCH ×2 (08:46→21:07)
[2020-06-19] MEDS: oxyCODONE/Acetamin 5/325 mg TAB PO PRN ×2 (11:16→21:07)
[2020-06-19] MEDS: Warfarin DAILY REMINDER **NOTE FOLLOW UP SCH (17:21)
[2020-06-19] MEDS: Insulin GLARGINE 100 un/ml 10 ml VIAL SUBCUT SCH (21:09)
[2020-06-20] MEDS: oxyCODONE/Acetamin 5/325 mg TAB PO PRN ×2 (02:38→09:51)
[2020-06-20 07:39] LABS: Hematocrit 25 % (35-47); Hemoglobin 8.2 g/dL (12.0-16.0); Mean Corpuscular HGB Conc 33 g/dL (31-36); Mean Corpuscular Hemoglobin 31 pg (27-31); Mean Corpuscular Volume 94 fL (80-97); Mean Platelet Volume 6.7 fL (7.4-10.4); Platelet Count 319 10^3/uL (150-450); Red Blood Count 2.61 10^6 /uL (3.70-4.87); Red Cell Distribution Width 14 % (10-15); White Blood Count 6.5 10^3/uL (3.5-10.8)
[2020-06-20 08:25] LABS: Polychromasia 2+
[2020-06-20 08:26] LABS: ABS Eosinophils 0.4 10^3/ul (0-0.6); ABS Lymphocytes 1.5 10^3/ul (1.0-4.8); ABS Monocytes 0.7 10^3/ul (0-0.8); ABS Neutrophils 3.8 10^3/ul (1.5-7.7); Eosinophil % 6.4 %; Lymphocyte % 23.5 %; Nucleated Red Blood Cells % 0.2
[2020-06-20] MEDS: Potassium Chlor 20 meq TAB.ER PO SCH (09:49)
[2020-06-20] MEDS: Cholecalciferol (VIT D3) 1,000 unit TAB PO SCH (09:50)
[2020-06-20] MEDS: Magnesium Hydroxide LIQ 30 ML UDC PO SCH (09:55)
[2020-06-20] MEDS: CMC:Rosuvastatin 5 mg TAB (NF) PO SCH (09:57)
[2020-06-20 11:38] VITALS: BP 106/50
== END 2020-06-20 13:55 | DRG 522 ==
LOC: ED 15:39 → SSU 20:11
PROVIDERS: ADMIT Internal Medicine; ATTEND Internal Medicine